=== PATIENT | female | born 1950 | race Caucasian/White ===

== ENCOUNTER → 2019-03-05 | Day surgery (SDC) | payer BC ==
--- NOTE | 2019-03-05 12:19 | RAD REPORT ---
EXAM DESCRIPTION: US - Guided FNA Non Breast - 03/05/2019 10:25 am CLINICAL HISTORY: E04.1 COMPARISON: Thyroid Para Parotid Gland dated 02/22/2019 TECHNIQUE: Patient presents for ultrasound-guided fine-needle aspiration of a previously detailed le ft mixed solid and cystic thyroid nodule. The procedure, risks and alternatives were discussed with the patient in detail. After answering all questions both oral and written consent were obtained. Patient had no contraindicated allergy. Patibonifacio beth is on 81 milligram aspirin therapy. Preliminary imaging again identified a 2 centimeter cystic left thyroid nodule with approximately 12- 14 millimeter solid component. The left anterior neck was prepped and draped in the usual sterile fashion. Skin and deeper tissues d own to the nodule were anesthetized with 1% lidocaine. Under direct sonographic visualization a 25 ga uge needle was advanced into the nodule solid component. Multiple to and fro excursions of the needle tip remained within the solid component. Procedure was then repeated with 4 additional 25 gauge need les all passing through the solid component. All aspirated material was given to pathology for cytolo gy assessment. Under direct sonographic visualization a 25 gauge needle was advanced into the nodule and directed to the cystic component. Aspiration was performed to remove some component of the fluid. The obtained fluid was retained for cytology and given to coroner transport technician. At the end of the procedure sterile bandage was placed to the puncture site. Post FNA imaging showed hemorrhage within the substance of the nodule. This was monitored over several minutes with no enlarg ement of the nodule. Patient was in no pain or discomfort at the conclusion of the procedure. IMPRESSION: Ultrasound-guided fine-needle aspiration was performed of the mixed solid and cystic lef t thyroid nodule as detailed. All obtained material was given to pathology for cytology/ histology assessment.
== END ==
LOC: FNA 09:36
PROVIDERS: ATTEND Internal Medicine
PROC: 0G9G3ZX Drainage of Left Thyroid Gland Lobe, Percutaneous Approach, Diagnostic (ICD-10-PCS; principal; 2019-03-05)
PROC: BG44ZZZ Ultrasonography of Thyroid Gland (ICD-10-PCS; 2019-03-05)
DX: E04.1 Nontoxic single thyroid nodule (principal)
CPT/HCPCS: 88162

== ENCOUNTER 2021-08-05 10:16 | Inpatient (IN) | payer BC, OTHER ==
[2021-08-05 10:51] LABS: Absolute Lymphocytes (CBC) 0.5 K/uL (0.7-4.9); Hematocrit 39.9 % (36.0-45.0); Lymphocytes % 7.5 % (15.3-44.8); MCV 90.3 fL (80-100); MPV 7.2 fL (7.6-11.3); RBC Red Blood Cell Count 4.42 M/uL (3.86-4.86)
[2021-08-05 10:55] LABS: Protime INR 0.94
[2021-08-05 11:09] LABS: Albumin 2.8 g/dL (3.4-5.0); Bilirubin Total 0.3 mg/dL (0.2-1.0); Protein, Total 6.3 g/dL (6.4-8.2)
--- NOTE | 2021-08-05 11:17 | RAD REPORT ---
EXAM DESCRIPTION: RAD - Chest Single View - 08/05/2021 10:57 am CLINICAL HISTORY: COUGH Chest pain. COMPARISON: No comparisons FINDINGS: Portable technique limits examination quality. Mild interstitial opacities bilaterally may indicate mild interstitial pulmonary edema. The heart is mildly enlarged in size. No displaced fractures. IMPRESSION: Mild CHF.
[2021-08-05 11:42] LABS: Troponin High Sensitivity 95.3 pg/mL (<58.9)
--- NOTE | 2021-08-05 12:20 | RAD REPORT ---
EXAM DESCRIPTION: US - Extremity Venous Uni Ltd - 08/05/2021 12:15 pm CLINICAL HISTORY: SWELLING Leg swelling and edema. COMPARISON: Upper Lower Extrem Art Multi dated 02/08/2018 FINDINGS: Left lower extremity venous system was interrogated with Doppler technique. Normal flow, c ompressibility and augmentation was noted. There is no DVT present.2 cm popliteal cyst. IMPRESSION: No evidence of left lower extremity deep venous thrombosis.
--- NOTE | 2021-08-05 12:45 | ER ---
Nurse's Notes [facility] Name: Tika Lynne Age: 70 yrs Sex: Female : 1950 Arrival Date: 08/05/2021 Time: 10:32 Bed 2 Private MD: Diagnosis: congestive heart failure;Cellulitis of left lower limb;Acute pulmonary edema Presentation: 08/05 10:30 Chief complaint: EMS states: Toned out for SOB, pt wears home O2, 1 lpm via NC, was 94% jl7 on arrival. 10:30 Coronavirus screen: At this time, the client does not indicate any symptoms associated jl7 with coronavirus-19. Ebola Screen: No symptoms or risks identified at this time. Initial Sepsis Screen: Does the patient meet any 2 criteria? RR > 20 per min. HR > 90 bpm. Yes Does the patient have a suspected source of infection? Yes: Productive cough/pneumonia If YES to both, name of provider notified: Kevin Lawson DO Risk Assessment: Do you want to hurt yourself or someone else? Patient reports no desire to harm self or others. Onset of symptoms was August 04, 2021. Care prior to arrival: Oxygen administered. via nasal cannula. 10:30 Method Of Arrival: EMS: [facility] [place], [place] [facility] jl7 10:30 Acuity: KEVIN 2 jl7 Triage Assessment: 10:30 General: Appears distressed, uncomfortable, Behavior is cooperative, appropriate for jl7 age, anxious. Pain: Complains of pain in right leg and left leg. Neuro: Level of Consciousness is awake, alert, obeys commands, Oriented to person, place, time, situation. Cardiovascular: Patient's skin is warm and dry. Rhythm is sinus tachycardia. Respiratory: Airway is patent Respiratory effort is even, labored, Respiratory pattern is symmetrical, tachypnea. GI: Abdomen is round distended. Derm: Skin is pink, warm \T\ dry. Historical: - Allergies: 10:45 Neomycin Sulfate; jl7 10:45 BACITRACIN; jl7 10:45 Levofloxacin; jl7 - Home Meds: 10:45 furosemide 40 mg Oral tab [Active]; prednisone 20 mg Oral tab [Active]; Trelegy Ellipta jl7 inhalation [Active]; Albuterol Inhl [Active]; carvedilol 6.25 mg oral tab [Active]; clonazepam 2 mg Oral tab [Active]; - PMHx: 10:45 Hypertensive disorder; Chronic obstructive lung disease; Congestive heart failure; jl7 - Immunization history:: Adult Immunizations unknown. - Social history:: Smoking status: unknown. Screenin:30 Abuse screen: Denies threats or abuse. Denies injuries from another. Nutritional jl7 screening: No deficits noted. Tuberculosis screening: No symptoms or risk factors identified. Fall Risk IV access (20 points). Assessment: 10:30 Reassessment: RT at bedside, pt placed on BiPap. jl7 Vital Signs: 10:30 BP 116 / 70; Pulse 129; Resp 25 S; Temp 100.2(O); Pulse Ox 91% on R/A; jl7 10:52 BP 103 / 62; Pulse 122; Resp 26; Pulse Ox 96% on 30% BiPAP; jl7 11:35 BP 121 / 69; Pulse 125; Resp 32; Pulse Ox 93% ; jl7 11:37 Weight 65 kg (M); jl7 12:56 BP 104 / 52; Pulse 108; Resp 28; Temp 98.4; Pulse Ox 97% ; jl7 14:20 BP 99 / 63; Pulse 118; Resp 25; Pulse Ox 97% ; jl7 15:20 BP 101 / 56; Pulse 115; Resp 28; Pulse Ox 96% on 30% BiPAP; jl7 ED Course: 10:30 Arm band placed on right wrist. jl7 10:30 Patient has correct armband on for positive identification. Placed in gown. Bed in low jl7 position. Call light in reach. Side rails up X2. Client placed on continuous cardiac and pulse oximetry monitoring. NIBP monitoring applied. Warm blanket given. 10:32 Patient arrived in ED. ms3 10:32 Kevin Lawson DO is Attending Physician. ms3 10:45 Triage completed. jl7 10:53 Goyo Cox RN is Primary Nurse. jl7 10:59 CXR XRAY In Process Unspecified. EDMS 12:17 US Extremity Venous Unilateral Ltd In Process Unspecified. EDMS 12:43 Santa Horne MD is Hospitalizing Provider. ms3 13:00 Initial lab(s) drawn, by me, sent to lab. EKG done, by ED staff, reviewed by Kevin Lawson DO COVID swab sent to lab. Inserted saline lock: 20 gauge in left antecubital area, using aseptic technique. Blood collected. 16:00 No provider procedures requiring assistance completed. Patient admitted, IV remains in jl7 place. intact, No redness/swelling at site. Administered Medications: 12:53 Drug: morphine 2 mg Route: IVP; Infused Over: 4 mins; Site: left antecubital; jl7 13:15 Follow up: Response: No adverse reaction; Pain is decreased jl7 12:56 Drug: vancoMYCIN 1 grams Route: IVPB; Infused Over: 2 hrs; Site: left antecubital; jl7 Medication: 10:30 VIS not applicable for this client. 7 Outcome: 12:44 Decision to Hospitalize by Provider. ms3 16:02 Admitted to Med/surg accompanied by tech, family with patient, via stretcher, room 202, [facility] with chart, Report called to JULIOCESAR Rhodes 16:02 Condition: stable 16:02 Discharge instructions given to patient, family, Instructed on the need for admit, Demonstrated understanding of instructions. 16:04 Patient left the ED. jl Signatures: Dispatcher [employer] Goyo Murrell RN RN jl7 Kevin Lawson DO DO ms3
--- NOTE | 2021-08-05 12:45 | EDPHYS ---
Physician Documentation [facility] Name: Tika Lynne Age: 70 yrs Sex: Female : 1950 Arrival Date: 08/05/2021 Time: 10:32 Bed 2 Private MD: ED Physician Kevin Lawson HPI: 08/05 10:37 This 70 yrs old Female presents to ER via Unassigned with complaints of shortness of ms3 breath. 10:37 The patient has shortness of breath at rest. Onset: The symptoms/episode began/occurred ms3 acutely, this morning. Duration: The symptoms are continuous, and are unchanged since they started. The patient's shortness of breath is aggravated by nothing, is alleviated by elevating head. Associated signs and symptoms: The patient has no apparent associated signs or symptoms. Severity of symptoms: At their worst the symptoms were severe in the emergency department the symptoms are unchanged. Patient on home oxygen at 2L. Last lasix dose 9 pm. Historical: - Allergies: 10:45 Neomycin Sulfate; jl7 10:45 BACITRACIN; jl7 10:45 Levofloxacin; jl7 - Home Meds: 10:45 furosemide 40 mg Oral tab [Active]; prednisone 20 mg Oral tab [Active]; Trelegy Ellipta jl7 inhalation [Active]; Albuterol Inhl [Active]; carvedilol 6.25 mg oral tab [Active]; clonazepam 2 mg Oral tab [Active]; - PMHx: 10:45 Hypertensive disorder; Chronic obstructive lung disease; Congestive heart failure; jl7 - Immunization history:: Adult Immunizations unknown. - Social history:: Smoking status: unknown. ROS: 10:37 Constitutional: Negative for fever, and chills. Eyes: Negative for injury, pain, ms3 redness, and discharge, Neck: Negative for injury, pain, and swelling, Cardiovascular: Negative for chest pain, and palpitations. Respiratory: Negative for shortness of breath, cough, wheezing, and pleuritic chest pain, Abdomen/GI: Negative for abdominal pain, nausea, vomiting, diarrhea, and constipation, MS/Extremity: Negative for injury and deformity, Skin: Negative for injury, rash, and discoloration, Psych: Negative for depression, anxiety, suicide ideation, homicidal ideation, and hallucinations. 10:37 All other systems are negative. Exam: 10:20 ECG was reviewed by the Attending Physician. ms3 10:37 Constitutional: This is a well developed, well nourished patient who is awake, alert, ms3 and in no acute distress. Head/Face: Normocephalic, atraumatic. Eyes: Pupils equal round and reactive to light, extra-ocular motions intact. Lids and lashes normal. Conjunctiva and sclera are non-icteric and not injected. Periorbital areas with no swelling, redness, or edema. Neck: Trachea midline, no cervical lymphadenopathy. Supple, full range of motion without nuchal rigidity, or vertebral point tenderness. No Meningismus. Chest/axilla: Normal chest wall appearance and motion. Nontender with no deformity. Cardiovascular: Regular rate and rhythm with a normal S1 and S2. No gallops, murmurs, or rubs. Normal PMI, no JVD. No pulse deficits. Respiratory: Lungs have equal breath sounds bilaterally, clear to auscultation and percussion. No rales, rhonchi or wheezes noted. No increased work of breathing, no retractions or nasal flaring. Abdomen/GI: Soft, non-tender, with normal bowel sounds. No distension or tympany. No guarding or rebound. No evidence of tenderness throughout. Skin: Warm, dry with normal turgor. Normal color with no rashes, no lesions, and no evidence of cellulitis. Psych: Awake, alert, with orientation to person, place and time. Behavior, mood, and affect are within normal limits. Vital Signs: 10:30 BP 116 / 70; Pulse 129; Resp 25 S; Temp 100.2(O); Pulse Ox 91% on R/A; jl7 10:52 BP 103 / 62; Pulse 122; Resp 26; Pulse Ox 96% on 30% BiPAP; jl7 11:35 BP 121 / 69; Pulse 125; Resp 32; Pulse Ox 93% ; jl7 11:37 Weight 65 kg (M); jl7 12:56 BP 104 / 52; Pulse 108; Resp 28; Temp 98.4; Pulse Ox 97% ; jl7 14:20 BP 99 / 63; Pulse 118; Resp 25; Pulse Ox 97% ; jl7 15:20 BP 101 / 56; Pulse 115; Resp 28; Pulse Ox 96% on 30% BiPAP; jl7 MDM: 10:20 Data reviewed:. ms3 10:32 Patient medically screened. ms3 08/05 10:33 Order name: COVID-19 SARS RT PCR (Document "Date of Onset" if Symptomatic); Complete kj1 Time: 12:16 08/05 10:33 Order name: Blood Culture Adult (2) kj1 08/05 10:33 Order name: CBC with Diff; Complete Time: 11:32 kj1 08/05 10:33 Order name: CMP; Complete Time: 11:32 kj1 08/05 10:33 Order name: Lactate; Complete Time: 11:32 kj1 08/05 10:33 Order name: Protime (+inr); Complete Time: 11:32 kj1 08/05 10:33 Order name: Ptt, Activated; Complete Time: 11:32 kj1 08/05 10:35 Order name: Troponin High Sensitivity; Complete Time: 12:16 ms3 08/05 10:35 Order name: BNP; Complete Time: 12:16 ok3 08/05 14:09 Order name: CBC with Automated Diff EDMS 08/05 14:09 Order name: CBC with Automated Diff EDMS 08/05 14:09 Order name: Comprehensive Metabolic Panel EDMS 08/05 14:09 Order name: Comprehensive Metabolic Panel EDMS 08/05 14:09 Order name: Lipid Profile EDFL 08/05 10:33 Order name: Accucheck; Complete Time: 10:52 kj1 08/05 10:33 Order name: Cardiac monitoring; Complete Time: 10:52 kj1 08/05 10:33 Order name: EKG - Nurse/Tech; Complete Time: 10:52 kj1 08/05 10:35 Order name: CXR XRAY; Complete Time: 11:32 ms3 08/05 11:37 Order name: US Extremity Venous Unilateral Ltd; Complete Time: 12:21 7 08/05 14:09 Order name: CONS Physician Consult EDMS 08/05 14:09 Order name: Heart Healthy EDMS 08/05 14:09 Order name: Lipid Profile EDMS 08/05 14:09 Order name: Magnesium EDMS 08/05 14:09 Order name: Magnesium EDMS 08/05 14:09 Order name: NT PRO-BNP EDMS 08/05 14:09 Order name: NT PRO-BNP EDMS 06/16 14:09 Order name: Phosphorus EDMS 08/05 14:09 Order name: Phosphorus EDMS 08/05 10:33 Order name: IV Saline Lock - Large Bore; Complete Time: 08/05 10:33 Order name: Labs collected and sent; Complete Time: 08/05 10:33 Order name: O2 Per Protocol; Complete Time: 08/05 10:33 Order name: O2 Sat Monitoring; Complete Time: EC:20 Rate is 128 beats/min. Rhythm is regular. QRS [place] is Normal. Clinical impression: ms3 Sinus tachycardia. Interpreted by me. Administered Medications: 12:53 Drug: morphine 2 mg Route: IVP; Infused Over: 4 mins; Site: left antecubital; jl7 13:15 Follow up: Response: No adverse reaction; Pain is decreased jl7 12:56 Drug: vancoMYCIN 1 grams Route: IVPB; Infused Over: 2 hrs; Site: left antecubital; jl7 Disposition Summary: 08/05/21 12:44 Hospitalization Ordered Hospitalization Status: Inpatient Admission ms3 Provider: Santa Horne ms3 Location: Telemetry/MedSurg (Inpatient) ms3 Condition: Stable ms3 Problem: new ms3 Symptoms: are unchanged ms3 Bed/Room Type: Standard ms3 Room Assignment: 202(08/05/21 15:02) dw Diagnosis - congestive heart failure ms3 - Cellulitis of left lower limb ms3 - Acute pulmonary edema ms3 Forms: - Medication Reconciliation Form ms3 - SBAR form ms3 Signatures: Dispatcher [employer] Stephany Edwards RN RN dw Goyo Cox RN RN jl7 Aby Hamilton kj1 Kevin Lawson DO DO ms3 Corrections: (The following items were deleted from the chart) 14:59 12:44 ms3 dw 15:02 14:59 213 dw dw
[2021-08-05] MEDS ORDERED: NA CHLORIDE 0.9% 0 ML ONE (12:48)
[2021-08-05] MEDS ORDERED: MORPHINE 2 MG/ML SYR ONE (12:48)
[2021-08-05] MEDS ORDERED: VANCOMYCIN 1 GM/VIAL ONE (12:48)
[2021-08-05] MEDS ORDERED: NA CHLORIDE 0.9% 250 ML ONE ×2 (12:51→17:28)
[2021-08-05] MEDS ORDERED: ALBUTEROL 2.5 MG/3 ML NEB SOL NEB PRN (14:04)
[2021-08-05] MEDS ORDERED: ENOXAPARIN 40 MG/0.4 ML SQ SCH (15:00)
[2021-08-05] MEDS ORDERED: ALBUTEROL 2.5 MG/3 ML NEB SOL NEB ONE (18:00)
[2021-08-05] MEDS ORDERED: NA CHLORIDE 0.9% 250 ML IV ONE (18:00)
[2021-08-05] MEDS ORDERED: IPRATROPIUM BROM 0.5MG/2.5ML NEB ONE (18:00)
[2021-08-05 18:18] LABS: Arterial Blood Carboxyhemoglob 0.9 % (0-1.5); Blood Gas Oxyhemoglobin 94.5 % (94-97); Blood O2 Saturation 96.8 % (92-98.5)
[2021-08-05] MEDS: METHYLPREDNISOLONE 125 MG INJ IV SCH (18:22)
[2021-08-05] MEDS: PIPER TAZO 3.375 GM in NA CHLORIDE 0.9% 100 ML IV SCH (18:23)
[2021-08-05] MEDS: NA CHLORIDE 0.9% 1,000 ML IV SCH (18:23)
[2021-08-05] MEDS ORDERED: FENTANYL CITR 100 MCG/2 ML IV PRN (18:48)
[2021-08-05] MEDS ORDERED: DIGOXIN 0.25 MG/ML AMP IV ONE (19:00)
[2021-08-05] MEDS: FENTANYL CITR 100 MCG/2 ML IV PRN (19:17)
[2021-08-05] MEDS ORDERED: DIGOXIN 0.25 MG/ML AMP ONE (19:19)
[2021-08-05] MEDS: ARFORMOTEROL TARTRATE 15 MCG/2 ML VIAL.NEB NEB SCH (20:05)
--- NOTE | 2021-08-05 23:31 | P.HP ---
Certification for Inpatient Patient admitted to: Inpatient With expected LOS: >2 Midnights Patient will require the following post-hospital care: None Practitioner: I am a practitioner with admitting privileges, knowledge of patient current condition, hospital course, and medical plan of care. Services: Services provided to patient in accordance with Admission requirements found in Title 42 Section 412.3 of the Code of Federal Regulations Patient History Date of Service: 08/05/21 Reason for admission: Cellulitis; acute COPD exacerbation History of Present Illness: Patient is a 70-year-old female came to the hospital with pain and shortness of breath. She has been having pain in the left leg which has gotten worse over the last 48 hours. Her clinical symptoms continued to worsen so she came to the emergency room. In the emergency room she was started on IV antibiotic therapy. She was also having severe shortness of breath. She was tachypneic but this may have been related to her pain. She appeared to be septic. She was placed on a BiPAP. She was oxygenating fairly well. She is also in atrial fibrillation with rapid ventricular response. I started her on digoxin. She takes carvedilol at home. Questionable history of congestive heart failure. Echocardiogram pending. As she appears to be septic I will err on the side of giving her some IV fluids to stabilize her hemodynamics. On the floor she was hypotensive with a systolic blood pressure in the 80s. Will monitor her closely in the ICU. Allergies bacitracin [From Neosporin ([id number])] Allergy (Verified 01/29/18 15:33) Rash levofloxacin [From Levaquin] Allergy (Verified 01/29/18 15:33) Itching neomycin [From Neosporin ([id number])] Allergy (Verified 01/29/18 15:33) Rash polymyxin B [From Neosporin ([id number])] Allergy (Verified 01/29/18 15:33) Rash Home Medications: Atorvastatin Calcium [Lipitor] 40 mg PO BEDTIME 01/29/18 Fluticasone/Umeclidin/Vilanter [Trelegy Ellipta 100-62.5-25] 1 each IH AC 01/29/18 carvediloL [Coreg] 6.25 mg PO BID 01/29/18 Albuterol Neb [Proventil 0.083% Neb Soln] 1 appl IH Q6H PRN 06/16/22 Cefdinir [Cefdinir*] 300 mg PO BID 08/05/21 Potassium Chloride 20 meq PO DAILY 08/05/21 clonazePAM [Clonazepam] 2 mg PO BEDTIME 08/05/21 predniSONE [Deltasone] 20 mg PO DAILY 08/05/21 - Past Medical/Surgical History Has patient received pneumonia vaccine in the past: Yes Diabetic: No -: COPD -: HTN -: AFib -: Right hip fracture - Family History Father Family History: Reviewed- Non-Contributory - Social History Smoking Status: Former smoker Alcohol use: No CD- Drugs: No Caffeine use: No Place of Residence: Home Review of Systems 10-point ROS is otherwise unremarkable Physical Examination - Vital Signs Temperature: 98.2 F Blood Pressure: 119/58 Pulse: 116 Respirations: 30 Pulse Ox (%): 98 - Physical Exam General: Alert, In no apparent distress, Severe distress HEENT: Atraumatic, PERRLA, Mucous membr. moist/pink, EOMI, Sclerae nonicteric Neck: Supple, 2+ carotid pulse no bruit, No LAD, Without JVD or thyroid abno rmality Respiratory: Diminished, Expiratory wheezes Cardiovascular: Regular rate/rhythm, Normal S1 S2, Systolic murmur Gastrointestinal: Normal bowel sounds, Soft and benign, Non-distended, No tenderness Musculoskeletal: No tenderness, Erythema, Tenderness, Warmth Integumentary: Tenderness/swelling, Erythema, Warmth Neurological: Normal speech, Normal tone, Cranial nerves 3-12 intact, Normal affect, Abnormal strength Lymphatics: No axilla or inguinal lymphadenopathy - Studies Laboratory Data (last 24 hrs) 08/05/21 10:40: PT 10.3, INR 0.94, APTT 21.6 L 08/05/21 10:40: Sodium 138, Potassium 4.0, BUN 32 H, Creatinine 0.82, Glucose 79, Total Bilirubin 0.3, AST 20, ALT 36, Alkaline Phosphatase 37 L 08/05/21 10:40: WBC 6.1, Hgb 13.7, Hct 39.9, Plt Count 284 Assessment & Plan - Problems (Diagnosis) (1) Cellulitis Current Visit: Yes Status: Acute (2) Sepsis associated hypotension Current Visit: Yes Status: Acute (3) COPD (chronic obstructive pulmonary disease) Current Visit: No Status: Acute (4) Atrial fibrillation with rapid ventricular response Current Visit: Yes Status: Acute - Plan 1. Continue with IV antibiotic 2. Continue with local wound care 3. strict blood pressure and blood sugar control 4. Gentle IV hydration 5. Monitor CBC 6. Strict blood sugar monitoring 7. Pain control 8. Cardiology consultation 9. Infectious Disease consultation 10. Pulmonary consultation 11. echocardiogram 12. medication for rate control & anticoagulation 13. GI and DVT prophylaxis Discharge Plan: Home Plan to discharge in: Greater than 2 days - Advance Directives Does patient have a Living Will: No Does patient have a Durable POA for Healthcare: No - Code Status/Comfort Care Code Status Assessed: Yes Code Status: Full Code Critical Care: Yes Time Spent Managing PTS Care (In Minutes): 55
[2021-08-06] MEDS: METHYLPREDNISOLONE 125 MG INJ IV SCH ×2 (00:15→05:48)
[2021-08-06] MEDS: DIGOXIN 0.25 MG/ML AMP IV SCH ×2 (00:19→05:48)
[2021-08-06] MEDS: PIPER TAZO 3.375 GM in NA CHLORIDE 0.9% 100 ML IV SCH ×3 (00:21→16:06)
[2021-08-06] MEDS: FENTANYL CITR 100 MCG/2 ML IV PRN ×4 (04:30→21:12)
[2021-08-06 04:50] LABS: Absolute Lymphocytes (CBC) 0.3 K/uL (0.7-4.9); Hematocrit 36.5 % (36.0-45.0); Lymphocytes % 1.7 % (15.3-44.8); MCV 92.8 fL (80-100); MPV 7.2 fL (7.6-11.3); RBC Red Blood Cell Count 3.93 M/uL (3.86-4.86)
[2021-08-06 05:13] LABS: Albumin 2.3 g/dL (3.4-5.0); Bilirubin Total 0.4 mg/dL (0.2-1.0); Magnesium 2.1 mg/dL (1.8-2.4); Phosphorus 5.5 mg/dL (2.5-4.9); Potassium 4.6 mmol/L (3.5-5.1)
[2021-08-06] MEDS: ARFORMOTEROL TARTRATE 15 MCG/2 ML VIAL.NEB NEB SCH ×2 (08:12→20:20)
--- NOTE | 2021-08-06 08:41 | P.CNS ---
Date of Consult: 08/06/21 Reason for Consult: Septic shock COPD Chief Complaint: Cellulitis; acute COPD exacerbation History of Present Illness: Patient is 70 years of age admitted with pain shortness of breath she has cellulitis of the left leg was found to be in septic shock has a history of COPD is taking her bronchodilators and steroids also has A. fib currently doing better vital signs are more stable cultures positive for gram-negative rods Allergies bacitracin [From Neosporin ([id number])] Allergy (Verified 01/29/18 15:33) Rash levofloxacin [From Levaquin] Allergy (Verified 01/29/18 15:33) Itching neomycin [From Neosporin ([id number]-hzu-[id number])] Allergy (Verified 01/29/18 15:33) Rash polymyxin B [From Neosporin ([id number])] Allergy (Verified 01/29/18 15:33) Rash Home Medications: Atorvastatin Calcium [Lipitor] 40 mg PO BEDTIME 01/29/18 Fluticasone/Umeclidin/Vilanter [Trelegy Ellipta 100-62.5-25] 1 each IH AC 01/29/18 carvediloL [Coreg] 6.25 mg PO BID 01/29/18 Albuterol Neb [Proventil 0.083% Neb Soln] 1 appl IH Q6H PRN 08/05/21 Cefdinir [Cefdinir*] 300 mg PO BID 08/05/21 Potassium Chloride 20 meq PO DAILY 08/05/21 clonazePAM [Clonazepam] 2 mg PO BEDTIME 08/05/21 predniSONE [Deltasone] 20 mg PO DAILY 08/05/21 - Past Medical/Surgical History Diabetic: No -: COPD -: HTN -: AFib -: Right hip fracture - Family History Father Family History: Reviewed- Non-Contributory - Social History Smoking Status: Unknown if ever smoked Alcohol use: No CD- Drugs: No Caffeine use: No Place of Residence: Home Review of Systems General: Weakness Respiratory: Shortness of Breath Musculoskeletal: Leg Pain Physical Examination Temp Pulse Resp BP Pulse Ox 97.1 F 93 H 20 115/60 93 08/06/21 04:00 08/06/21 06:00 08/06/21 06:00 08/06/21 06:00 08/06/21 06:00 General: Alert, Oriented x3, Moderate distress Respiratory: Clear to auscultation bilaterally, Diminished Cardiovascular: No edema, Regular rate/rhythm, Normal S1 S2 Gastrointestinal: Normal bowel sounds, Soft and benign Integumentary: Other (Cellulitis of her left leg her right leg is also has some discoloration) Laboratory Data (last 24 hrs) 08/05/21 10:40: PT 10.3, INR 0.94, APTT 21.6 L 08/05/21 10:40: Sodium 138, Potassium 4.0, BUN 32 H, Creatinine 0.82, Glucose 79, Total Bilirubin 0.3, AST 20, ALT 36, Alkaline Phosphatase 37 L 08/05/21 10:40: WBC 6.1, Hgb 13.7, Hct 39.9, Plt Count 284 - Problems (1) Septic shock Current Visit: Yes Status: Acute Plan: Patient is 70 years of age admitted with septic shock blood cultures positive for gram-negative rods vital signs are stable chest x-ray shows some COPD changes continue with Zosyn DC vancomycin changed to p.o. prednisone continue with bronchodilators patient is in A. fib rate appears to be controlled normal sinus rhythm patient stable to be transferred to the floor (2) COPD (chronic obstructive pulmonary disease) Current Visit: No Status: Acute Plan: Apparently patient has severe COPD takes Trelegy and prednisone at home close up with the regional commercial sales manager in [place] at discharge patient to resume her Trelegy and low-dose prednisone follow-up with me in 2 to 4 weeks high-sensitivity troponins elevated Qualifiers: Emphysema type: unspecified
[2021-08-06] MEDS: ENOXAPARIN 80 MG/0.8 ML SQ SCH ×4 (08:49→21:22)
[2021-08-06] MEDS: predniSONE 20 MG TAB PO SCH ×2 (08:50→21:09)
[2021-08-06] MEDS ORDERED: carvediloL 6.25 MG TAB PO SCH (09:00)
[2021-08-06] MEDS: carvediloL 12.5 MG TAB PO SCH ×2 (09:18→21:08)
[2021-08-06] MEDS: NA CHLORIDE 0.9% 1,000 ML IV SCH (11:00)
--- NOTE | 2021-08-06 12:58 | P.CNS ---
Date of Consult: 08/06/21 Chief Complaint: Cellulitis; acute COPD exacerbation History of Present Illness: The patient is a 70-year-old female with a past medical history of COPD and possible congestive heart failure who presented to the hospital secondary to pain and shortness of breath. Patient has been having pain in her left leg for the past few days. She initially noticed lower extremity swelling, and then stated that the pain began a few days later. She states that her dog jumped up on her and scratched her leg. She also had shortness of breath, with elevated BNP on admission. Chest x-ray showed mild interstitial opacities bilaterally concerning for infiltrates versus pulmonary edema. Echocardiogram is pending. Blood cultures obtained on 08/05 grew gram-negative rods. No urine culture/urine analysis was obtained, 1 has been ordered however patient has been on antibiotics for for [address] hours [address] time[address] abdomen pelvis also pending. Patient currently states she is feeling much better. Denies shortness of breath on current oxygen, chest pain. She reports tenderness to left lower extremity, however states the tenderness has subsided since admission. Allergies bacitracin [From Neosporin ([id number])] Allergy (Verified 01/29/18 15:33) Rash levofloxacin [From Levaquin] Allergy (Verified 01/29/18 15:33) Itching neomycin [From Neosporin ([id number])] Allergy (Verified 01/29/18 15:33) Rash polymyxin B [From Neosporin ([id number])] Allergy (Verified 01/29/18 15:33) Rash Home Medications: Atorvastatin Calcium [Lipitor] 40 mg PO BEDTIME 01/29/18 Fluticasone/Umeclidin/Vilanter [Trelegy Ellipta 100-62.5-25] 1 each IH AC 01/29/18 carvediloL [Coreg] 6.25 mg PO BID 01/29/18 Albuterol Neb [Proventil 0.083% Neb Soln] 1 appl IH Q6H PRN 08/05/21 Cefdinir [Cefdinir*] 300 mg PO BID 08/05/21 Potassium Chloride 20 meq PO DAILY 08/05/21 clonazePAM [Clonazepam] 2 mg PO BEDTIME 08/05/21 predniSONE [Deltasone] 20 mg PO DAILY 08/05/21 - Past Medical/Surgical History Diabetic: No -: COPD -: HTN -: AFib -: Right hip fracture - Family History Father Family History: Reviewed- Non-Contributory - Social History Smoking Status: Unknown if ever smoked Alcohol use: No CD- Drugs: No Caffeine use: No Place of Residence: Home Review of Systems 10-point ROS is otherwise unremarkable Physical Examination Temp Pulse Resp BP Pulse Ox 96.9 F 110 H 20 122/65 93 08/06/21 08:00 08/06/21 11:00 08/06/21 11:00 08/06/21 11:00 08/06/21 11:00 General: Alert, In no apparent distress HEENT: Atraumatic, Normocephalic Neck: 2+ carotid pulse no bruit Respiratory: Other (Bilateral crackles/rales) Cardiovascular: Regular rate/rhythm, Normal S1 S2 Capillary refill: <2 Seconds Gastrointestinal: Normal bowel sounds, Soft and benign Integumentary: Other (Left lower extremity cellulitis with swelling) Conclusions/Impression: Antibiotics Zosyn: 08/05current Assessment/plan Bacteremia Blood cultures obtained on 08/05 grew gram-negative rods in both aerobic bottles. Recommend continuing Zosyn at this time. No urine culture/urine analysis was obtained on admission, they have been ordered today however patient has been on antibiotics for 24 hours already. Source of infection remains unclear Left lower extremity cellulitis Continue to keep leg elevated Continue current antibiotics Patient does have wound on her upper inner thigh however it is scabbed over and is healing. This wound is from when her dog jumped up and scratched on her. Possible source of the cellulitis infection could be Pasteurella species, is covered with Zosyn. Venous Doppler negative for DVT Pneumonia Patient tachypneic and short of breath on admission. Has improved in the past 24 hours. Currently on 1 L of oxygen via nasal cannula Chest x-ray showed mild interstitial opacities bilaterally concerning for infiltrates versus pulmonary edema. Patient does have history of COPD, recommend continuing nebulizer treatments and restarting home trilogy Possible congestive heart failure Patient had bilateral lower extremity swelling on admission, and elevated BNP. Echocardiogram is pending. Leukocytosis -Continue to trend, patient afebrile Plan of care discussed Dr. Richardson Thank for consultation
[2021-08-06] MEDS ORDERED: VANCOMYCIN 1 GM in NA CHLORIDE 0.9% 250 ML IVPB SCH (13:00)
--- NOTE | 2021-08-06 14:28 | RAD REPORT ---
EXAM DESCRIPTION: CTAbdomen W Contrast - 08/06/2021 1:51 pm CLINICAL HISTORY: GNR bateremia COMPARISON: No comparisons TECHNIQUE: CT of the abdomen was performed. All CT scans are performed using dose optimization technique as appropriate and may include automated exposure control or mA/KV adjustment according to patient size. FINDINGS: Lower chest: Small right pleural effusion with mild underlying consolidation. 12 mm solid right lower lobe pulmonary nodule. Multi-vessel coronary artery disease. Liver: Hepatic steatosis. Biliary: Indistinctness of the gallbladder wall. Stomach: No significant focal abnormality. Duodenum: No significant focal abnormality. Pancreas: No significant abnormality. Spleen: Trace perisplenic fluid. Adrenal: No suspicious lesions. Kidney/ureter: No hydronephrosis. Punctate stone in the lower pole of the left kidney. Mild left moncho nephric stranding. Retroperitoneum: No retroperitoneal adenopathy. Vascular: No aneurysm. Atherosclerosis. Bowel: No significant focal abnormality. Peritoneum: Small volume of periapical stomach fluid. Bones: No acute fracture. Kyphoplasty changes in the lower thoracic and lumbar spine. Probably subacu te L1 compression fracture. No acute fractures identified. Other: n/a IMPRESSION: 1. Mild stranding around the gallbladder could represent acute cholecystitis. Correlate with LFTs. 2. Small right pleural effusion with either mild pneumonia or pneumonitis. 3. 12 mm solid right lower lobe pulmonary nodule which is indeterminate. Neoplasm not excluded. Jarvis rison with any outside imaging would be helpful. If none is available, recommend three-month follow-u p chest CT.
--- NOTE | 2021-08-06 16:00 | CON ---
Date of Consultation: 08/06/2021 Reason For Consultation: Elevated troponin as well as atrial fibrillation, History If Present Illness: Ms. Lynne is 70, has a history of COPD and hypertension. Denied any pr evious cardiac history. Came in with pneumonia, sepsis, dyspnea on exertion. She was found to have new onset atrial fibrillation. She received 1 dose of digoxin and some beta-mickie along with the a ntibiotics, steroids, and Lovenox. She converted to sinus rhythm. She remains short of breath. Den ied any chest pain. Denied any nausea, vomiting, diaphoresis, PND, orthopnea, pedal edema, palpitati on, or syncope. Has had some cough, but denies any fever or chills. She denied any chest pain. Past Medical History: Includes COPD and hypertension. Allergies: SHE IS ALLERGIC TO BACTRIM AND LEVAQUIN. Review of Systems: Negative. Social History: Negative. Family History: Noncontributory. Medications: At home include inhalers, carvedilol, potassium, and Lasix. Physical Examination: General: She is in moderate respiratory distress. Sinus tachycardia at a rate of 110, afebrile. HEENT: Negative. Neck: Supple. No bruit. Chest: Clear to auscultation and percussion. Cardiac: Revealed a regular rhythm and rate. No murmurs, gallops, or rubs. Abdomen: Benign. Extremities: Revealed no clubbing, cyanosis, or edema. Diagnostic Data: White count was 16,000. BNP is 2000. Chest x-ray shows CHF. Venous Doppler is ne gative. Troponin is 76. Impression And Plan: Atrial fibrillation and elevated troponin probably both secondary to pneumonia and sepsis and demand ischemia. I agree with digoxin, Lovenox. Continue her carvedilol. Continue a ntibiotics and steroid treatment for her COPD and pneumonia. Her blood pressure is well controlled. We need to do a 2D echocardiogram to see what with her ejection fraction is. This may be an atrial fibrillation episode secondary to the pneumonia and sepsis. Hopefully, we will not have to anticoagu late her down the road with long-term anticoagulation, but we will see what the echo shows. She was reluctant to increase her carvedilol dose. Apparently, she did not tolerate that in the past, so I w ill continue the Coreg 6.25 twice a day. I gave her 0.25 mg of digoxin daily p.o. Continue antibiot ics. Continue Lovenox and I will continue to follow her. AD/YOJANA Voice ID: [id number] Report ID: [id number]
[2021-08-06] MEDS: ATORVASTATIN 40 MG TAB PO SCH (21:09)
[2021-08-06] MEDS: clonazePAM 1 MG TAB PO SCH (22:44)
--- NOTE | 2021-08-07 00:58 | P.PN ---
Subjective Date of Service: 08/06/21 Subjective: No new changes, No C/O voiced, Improving Patient looks to be doing much better in the ICU. Clinical symptoms are much better. Review of Systems 10-point ROS is otherwise unremarkable Physical Examination - Vital Signs Temperature: 98.3 F Blood Pressure: 141/65 Pulse: 112 Respirations: 14 Pulse Ox (%): 93 - Physical Exam General: Alert, In no apparent distress, Oriented x3 HEENT: Atraumatic, PERRLA, EOMI Neck: Supple, JVD not distended Respiratory: Clear to auscultation bilaterally, Normal air movement Cardiovascular: Regular rate/rhythm, Normal S1 S2 Gastrointestinal: Normal bowel sounds, No tenderness Musculoskeletal: No tenderness Integumentary: No rashes Neurological: Normal speech, Normal tone, Normal affect Lymphatics: No axilla or inguinal lymphadenopathy - Studies Medications List Reviewed: Yes Assessment & Plan - Problems (Diagnosis) (1) Cellulitis Current Visit: Yes Status: Acute (2) Sepsis associated hypotension Current Visit: Yes Status: Acute (3) COPD (chronic obstructive pulmonary disease) Current Visit: No Status: Acute Qualifiers: Emphysema type: unspecified (4) Atrial fibrillation with rapid ventricular response Current Visit: Yes Status: Acute - Plan Continue with plan of care as mentioned below: 1. Continue with IV antibiotic 2. Continue with local wound care 3. strict blood pressure and blood sugar control 4. Gentle IV hydration 5. Monitor CBC 6. Strict blood sugar monitoring 7. Pain control 8. Cardiology consultation 9. Infectious Disease consultation 10. Pulmonary consultation 11. echocardiogram 12. medication for rate control & anticoagulation 13. GI and DVT prophylaxis Discharge Plan: Home Plan to discharge in: Greater than 2 days - Advance Directives Does patient have a Living Will: No Does patient have a Durable POA for Healthcare: No - Code Status/Comfort Care Code Status: Full Code Critical Care: No Time Spent Managing PTS Care (In Minutes): 35
[2021-08-07] MEDS: PIPER TAZO 3.375 GM in NA CHLORIDE 0.9% 100 ML IV SCH ×2 (01:36→08:43)
[2021-08-07] MEDS: FENTANYL CITR 100 MCG/2 ML IV PRN ×4 (01:54→22:07)
[2021-08-07] MEDS: carvediloL 12.5 MG TAB PO SCH ×3 (06:00→19:12)
[2021-08-07] MEDS: ARFORMOTEROL TARTRATE 15 MCG/2 ML VIAL.NEB NEB SCH ×2 (07:49→19:50)
[2021-08-07] MEDS: predniSONE 20 MG TAB PO SCH ×2 (08:42→20:12)
[2021-08-07] MEDS: ENOXAPARIN 80 MG/0.8 ML SQ SCH ×2 (08:42→20:12)
--- NOTE | 2021-08-07 09:00 | EKG ---
Test Date: 2021-08-05 Test Time: 10:20:24 Oracle Database Developer: MIGUEL MEASUREMENT RESULTS: Intervals: Rate: 128 MA: 126 QRSD: 66 QT: 252 QTc: 367 [place]: P: 54 MA: 126 QRS: 53 T: 201 INTERPRETIVE STATEMENTS: Sinus tachycardia with premature atrial complexes ST & T wave abnormality, consider inferolateral ischemia Abnormal ECG No previous ECG available for comparison Electronically Signed On 08-07-21 08:55:46 CDT by Sammy Valadez
--- NOTE | 2021-08-07 10:51 | PN ---
Date of Progress Note: 08/07/2021 Ms. Lynne had came in with sepsis, pneumonia, atrial fibrillation, elevated troponin. Today, she is in sinus rhythm. Echocardiogram showed decreased left ventricular compliance with a normal ejection fraction. She has received digoxin when she came in. She is on Coreg. I think her atrial fibrilla tion may have been secondary to the sepsis and pneumonia. Her elevated troponin is secondary to kaci nd ischemia. She does not need any further cardiac workup, but I think it would be reasonable to put her on an anticoagulant, Eliquis or Xarelto for the next 3 to 6 months. Also a low dose beta-blocke r when she goes home. AD/YOJANA Voice ID: [id number] Report ID: [id number]
--- NOTE | 2021-08-07 11:58 | P.PN ---
Subjective Date of Service: 08/07/21 Chief Complaint: Cellulitis; acute COPD exacerbation Subjective: Improving (Patient is doing better pain has improved blood cultures negative) Review of Systems General: Weakness Respiratory: Shortness of Breath Physical Examination - Vital Signs Temperature: 97.7 F Blood Pressure: 122/56 Pulse: 95 Respirations: 28 Pulse Ox (%): 95 - Physical Exam General: Oriented x3 Respiratory: Clear to auscultation bilaterally, Diminished, Expiratory wheezes Cardiovascular: Regular rate/rhythm - Studies Medications List Reviewed: Yes Assessment And Plan - Current Problems (Diagnosis) (1) COPD (chronic obstructive pulmonary disease) Current Visit: No Status: Acute Plan: Patient is doing better pain has improved plan to ambulate blood cultures negative change to p.o. antibiotic has underlying COPD patient has abnormal EKG with ST-T changes awaiting cardiac evaluation possible cardiac cath continue with steroids underlying severe COPD Qualifiers: Emphysema type: unspecified
[2021-08-07] MEDS: HYDROCODONE/CHLORPHEN 5 ML/OSYR PO PRN (12:46)
[2021-08-07] MEDS ORDERED: LIDOCAINE VISCOUS 2% SOLN 15 ML UDC PO PRN (12:49)
[2021-08-07] MEDS: NYSTATIN 500,000 UNIT/5 ML UDC PO SCH ×2 (13:53→20:12)
[2021-08-07] MEDS: ATORVASTATIN 40 MG TAB PO SCH (20:12)
[2021-08-07] MEDS: CEFDINIR 300 MG CAP PO SCH (20:12)
[2021-08-07] MEDS: clonazePAM 1 MG TAB PO SCH (20:13)
[2021-08-08] MEDS: carvediloL 12.5 MG TAB PO SCH ×2 (05:22→18:37)
[2021-08-08] MEDS: ENOXAPARIN 80 MG/0.8 ML SQ SCH ×2 (07:58→20:49)
[2021-08-08] MEDS: NYSTATIN 500,000 UNIT/5 ML UDC PO SCH ×3 (07:59→20:49)
[2021-08-08] MEDS: predniSONE 20 MG TAB PO SCH ×2 (07:59→20:49)
[2021-08-08] MEDS: CEFDINIR 300 MG CAP PO SCH (07:59)
[2021-08-08] MEDS: ARFORMOTEROL TARTRATE 15 MCG/2 ML VIAL.NEB NEB SCH ×2 (08:39→20:00)
[2021-08-08] MEDS ORDERED: Meropenem 1,000 MG in NA CHLORIDE 0.9% 100 ML IV SCH (12:00)
[2021-08-08] MEDS: FENTANYL CITR 100 MCG/2 ML IV PRN ×2 (13:18→23:48)
[2021-08-08] MEDS: NA CHLORIDE 0.9% IV SCH (13:41)
[2021-08-08] MEDS: MEROPENEM IV SCH (13:41)
[2021-08-08] MEDS ORDERED: GENTAMICIN IVPB SCH (14:00)
[2021-08-08] MEDS ORDERED: NA CHLORIDE 0.9% IVPB SCH (14:00)
--- NOTE | 2021-08-08 15:07 | PN ---
Subjective: Patient lying in bed. No new acute event. Chart reviewed. Objective: Vital Signs: Temperature 98, pulse 93, respirations 18, blood pressure 129/58. Lungs: Basal crackles. Heart: S1, S2, regular. Abdomen: Soft, nontender. Bowel sounds present. Extremities: No edema. Left leg erythematous changes and swelling noted. Laboratory Data: WBC 16,000, hemoglobin 12, platelets are 214. Chemistry shows sodium 140, potassiu m 4.6, chloride 105, bicarb 29, BUN 33, creatinine 1.2, glucose 124. Micro data shows blood cultures growing Pseudomonas aeruginosa. The patient is currently being treated with cefdinir. Assessment And Plan: 1.Cellulitis of left lower extremity and bacteremia secondary to Pseudomonas aeruginosa. 2.Pneumonia, improving. We will recommend to discontinue cefdinir and to start patient on ciproflox acin. We will follow the patient closely. Total course of 2 weeks of antibiotic will be recommended . NF/MODL Voice ID: [id number] Report ID: [id number]
[2021-08-08] MEDS: HYDROCODONE/CHLORPHEN 5 ML/OSYR PO PRN (15:10)
--- NOTE | 2021-08-08 15:56 | P.PN ---
Date of Service: 08/07/21 Subjective Subjective: Patient looks to be a little diaphoretic today. She is been coughing quite a bit according to her family member. Review of Systems 10-point ROS is otherwise unremarkable Physical Examination - Vital Signs Reviewed - Physical Exam General: Alert, In no apparent distress, Oriented x3 HEENT: Within normal limits Respiratory: Clear to auscultation bilaterally, Normal air movement Cardiovascular: Regular rate/rhythm, Normal S1 S2 Gastrointestinal: Normal bowel sounds, No tenderness Neurological: Normal speech, Normal tone, Normal affect Lymphatics: No axilla or inguinal lymphadenopathy - Studies Medications List Reviewed: Yes Assessment & Plan - Problems (Diagnosis) (1) Cellulitis Current Visit: Yes Status: Acute (2) Sepsis associated hypotension Current Visit: Yes Status: Acute (3) COPD (chronic obstructive pulmonary disease) Current Visit: No Status: Acute Qualifiers: Emphysema type: unspecified (4) Atrial fibrillation with rapid ventricular response Current Visit: Yes Status: Acute - Plan Continue with plan of care as mentioned below: 1. Continue with IV antibiotic 2. Continue with local wound care 3. strict blood pressure and blood sugar control 4. Gentle IV hydration 5. Monitor CBC 6. Strict blood sugar monitoring 7. Pain control 8. Cardiology consultation appreciated 9. Infectious Disease consultation appreciated 10. Pulmonary consultation appreciated 11. echocardiogram reviewed; mild diastolic heart failure 12. medication for rate control & anticoagulation 13. Physical therapy evaluation 14. GI and DVT prophylaxis
--- NOTE | 2021-08-08 15:59 | P.PN ---
Date of Service: 08/08/21 Subjective Subjective: Patient doing well today. Review of Systems 10-point ROS is otherwise unremarkable Physical Examination - Vital Signs Reviewed - Physical Exam General: Alert, In no apparent distress, Oriented x3 HEENT: Within normal limits Respiratory: Clear to auscultation bilaterally, Normal air movement Cardiovascular: Regular rate/rhythm, Normal S1 S2 Gastrointestinal: Normal bowel sounds, No tenderness Neurological: Normal speech, Normal tone, Normal affect Skin: Left lower extremity with some erythema to the caro; improved - Studies Medications List Reviewed: Yes Assessment & Plan - Problems (Diagnosis) (1) Cellulitis Current Visit: Yes Status: Acute (2) Sepsis secondary to Pseudomonas associated hypotension Current Visit: Yes Status: Acute (3) COPD (chronic obstructive pulmonary disease) Current Visit: No Status: Acute Qualifiers: Emphysema type: unspecified (4) Atrial fibrillation with rapid ventricular response Current Visit: Yes Status: Acute - Plan Continue with plan of care as mentioned below: 1. Continue with IV antibiotic; meropenem and gentamicin 2. Continue with local wound care to the left leg 3. strict blood pressure and blood sugar control 4. Hep-Lock IV 5. Monitor CBC and renal function closely 6. Strict blood sugar monitoring 7. Pain control 8. Cardiology consultation appreciated 9. Infectious Disease consultation appreciated 10. Pulmonary consultation appreciated 11. echocardiogram reviewed; mild diastolic heart failure 12. medication for rate control & anticoagulation 13. Physical therapy evaluation 14. GI and DVT prophylaxis
[2021-08-08] MEDS: IPRATROPIUM BROM 0.5MG/2.5ML NEB PRN (20:00)
[2021-08-08] MEDS: clonazePAM 1 MG TAB PO SCH (20:49)
[2021-08-08] MEDS: ATORVASTATIN 40 MG TAB PO SCH (20:49)
[2021-08-08] MEDS: BENZONATATE 100 MG CAP PO PRN (20:52)
[2021-08-09] MEDS ORDERED: Meropenem 1000 MG/VIAL IV ONE (02:10)
[2021-08-09] MEDS: NA CHLORIDE 0.9% IV SCH (02:12)
[2021-08-09] MEDS: MEROPENEM IV SCH (02:12)
[2021-08-09] MEDS: carvediloL 12.5 MG TAB PO SCH (05:21)
[2021-08-09 06:08] LABS: Absolute Lymphocytes (CBC) 0.1 K/uL (0.7-4.9); Hematocrit 32.4 % (36.0-45.0); Lymphocytes % 1.1 % (15.3-44.8); MCV 93.5 fL (80-100); MPV 7.5 fL (7.6-11.3); RBC Red Blood Cell Count 3.47 M/uL (3.86-4.86)
[2021-08-09 06:20] LABS: Albumin 1.6 g/dL (3.4-5.0); Bilirubin Total 0.2 mg/dL (0.2-1.0); Magnesium 2.3 mg/dL (1.8-2.4); Potassium 4.6 mmol/L (3.5-5.1); Protein, Total 6.4 g/dL (6.4-8.2)
[2021-08-09] MEDS: ARFORMOTEROL TARTRATE 15 MCG/2 ML VIAL.NEB NEB SCH ×2 (08:00→20:35)
--- NOTE | 2021-08-09 08:08 | ECHO ---
HEIGHT: 5 ft 3 in WEIGHT: 143 lb 4.808 oz DATE OF STUDY: 08/06/[address]: Santa Horne MD 2-DIMENSIONAL: YES M.MODE: YES DOPPLER: YES COLOR FLOW: YES TDS: PORTABLE: DEFINITY: BUBBLE STUDY: DIAGNOSIS: CONGESTIVE HEART FAILURE CARDIAC HISTORY: CATHERIZATION: SURGERY: PROSTHETIC VALVE: PACEMAKER: MEASUREMENTS (cm) DIASTOLIC (NORMALS) SYSTOLIC (NORMALS) IVSd 1.0 (0.6-1.2) LA Diam 3.2 (1.9-4.0) LVEF 79% LVIDd 3.9 (3.5-5.7) LVIDs 2.0 (2.0-3.5) %FS 46% LVPWd 1.0 (0.6-1.2) Ao Diam 2.6 (2.0-3.7) 2 DIMENSIONAL ASSESSMENT: RIGHT ATRIUM: NORMAL LEFT ATRIUM: NORMAL RIGHT VENTRICLE: NORMAL LEFT VENTRICLE: NORMAL TRICUSPID VALVE: NORMAL MITRAL VALVE: NORMAL PULMONIC VALVE: NORMAL AORTIC VALVE: NORMAL PERICARDIAL EFFUSION: NONE AORTIC ROOT: NORMAL LEFT VENTRICULAR WALL MOTION: NORMAL EJECTION FRACTION. DECREASED LEFT VENTRICULAR COMPLIANCE. DOPPLER/COLOR FLOW: DECREASED LEFT VENTRICULAR COMPLIANCE COMMENTS: DIASTOLIC DYSFUNCTION. NORMAL EJECTION FRACTION. NO EFFUSION. TECHNICALLY DIFFICULY STUDY. TECHNOLOGIST: ERIN STOREY
--- NOTE | 2021-08-09 08:23 | P.PN ---
Subjective Date of Service: 08/10/21 Chief Complaint: Pseudomonas bacteremia Subjective: Improving (Patient is improving condition stable blood cultures are positive for Pseudomonas) Review of Systems General: Weakness Respiratory: Shortness of Breath Physical Examination - Vital Signs Temperature: 97.6 F Blood Pressure: 140/67 Pulse: 99 Respirations: 16 Pulse Ox (%): 96 - Physical Exam General: Alert, Oriented x3 Respiratory: Diminished Cardiovascular: No edema, Normal S1 S2 - Studies Microbiology Data (last 24 hrs): 08/05/21 10:40 Blood - Blood Aerobic Blood Culture - Final Pseudomonas Aeruginosa 08/05/21 10:40 Blood - Blood Blood Culture Gram Stain - Final 08/05/21 10:55 Blood - Blood Aerobic Blood Culture - Final Pseudomonas Aeruginosa 08/05/21 10:55 Blood - Blood Blood Culture Gram Stain - Final Medications List Reviewed: Yes Assessment And Plan - Current Problems (Diagnosis) (1) COPD (chronic obstructive pulmonary disease) Current Visit: No Status: Acute Plan: Patient admitted with COPD exacerbation has Pseudomonas bacteremia currently on meropenem labs reviewed white count is declining hemodynamically stable oxygenation satisfactory reduce dose of prednisone patient's Qualifiers: Emphysema type: unspecified (2) Pseudomonal bacteremia Current Visit: Yes Status: Acute Plan: B/C all pos for MDR pseudomonas on Vabomere (3) Other nonspecific abnormal finding of lung field Current Visit: Yes Status: Acute Plan: RLL SPN 12 mm suspicious for cancer . NEed to f/u as outpatient with PET scan
[2021-08-09 09:06] LABS: Anisocytosis SLIGHT; Blood Morphology Comment NOTED (NOT SEEN); Platelet Estimate ADEQ
[2021-08-09] MEDS: NYSTATIN 500,000 UNIT/5 ML UDC PO SCH ×3 (09:20→20:20)
[2021-08-09] MEDS: POTASS/SODIUM PHOSPHATE 1 PKT POWD.PACK PO SCH ×3 (09:20→11:56)
[2021-08-09] MEDS: ENOXAPARIN 80 MG/0.8 ML SQ SCH ×2 (09:21→20:21)
[2021-08-09] MEDS: predniSONE 10 MG TAB PO SCH ×2 (09:29→20:20)
--- NOTE | 2021-08-09 13:53 | P.PN ---
Subjective Date of Service: 08/09/21 Chief Complaint: Pseudomonas bacteremia Subjective: New changes (Patient anxious to go home Spouse reports patient is weaker since the last couple of days No new fevers States significant pain over left leg Reported blood culture with multidrug-resistant Pseudomonas, being followed by ID Still on 3 L nasal cannula O2, patient reports using 2 to 3 L as needed) Spouse very agitated with increasing patient Coreg for rate control yesterday Physical Examination - Vital Signs Temperature: 97.0 F Blood Pressure: 122/64 Pulse: 93 Respirations: 24 Pulse Ox (%): 100 - Studies Medications List Reviewed: Yes Assessment And Plan - Code Status/Comfort Care Code Status: Full Code Physician Review: Patient Assessed, Agree with Above Assessment and Plan Physician Review Additional Text: 08/09/21 13:47 - Physical Exam General: Alert, frail looking,nasal cannula O23 L HEENT: Within normal limits Respiratory: Coarse bibasilar crepitation with fine expiratory wheezes Cardiovascular: Regular rate/rhythm, Normal S1 S2 Gastrointestinal: Normal bowel sounds, No tenderness Neurological: Normal speech, Normal tone, Normal affect Skin: Left lower extremity with some erythema to the caro; significant tenderness of the left leg, trace pedal edema right leg - Studies CT abdomen with contrast showed 12 mm right lower lobe pulmonary nodule worrisome for malignancy, 3 months follow-up recommended, Right pleural effusion with possible pneumonitis Left perinephric stranding suggestive of pyelonephritis Blood culture and urine culture with Pseudomonas aeruginosa Chest x-ray with mild pulmonary edema Assessment & Plan - Problems (Diagnosis) (1) Cellulitis Current Visit: Yes Status: Acute (2) Sepsis secondary to Pseudomonas associated hypotension Current Visit: Yes Status: Acute (3) COPD (chronic obstructive pulmonary disease) Current Visit: No Status: Acute Qualifiers: Emphysema type: unspecified (4) Atrial fibrillation with rapid ventricular response Current Visit: Yes Status: Acute 5 Pseudomonas UTI with bacteremia 6 left pyelonephritis 7 mild CHF exacerbationlikely diastolic 8 asthenia with weakness 9 COPD with mild acute exacerbation 10 atrial fibrillation with RVRfamily refusing increasing Coreg Plan Continue antibiotics with gentamicin/meropenem although culture sensitive to Levaquin Option of initiating patient on Levaquin with steroid coverage while inpatient discussed with spouse. He is very adamant patient will not have fluoroquinolones Pharmacy and ID discussed with, defer to ID Mild dyspnea may be due to COPD or CHF exacerbation, start IV Lasix Add duo nebs with Xopenex as needed Family/patient spouse refusing increasing Coreg feels his contributors of patient weakness and lethargy, will reduce Coreg back to 6.25 although heart r ate in the mid 90s Might need add Cardizem for rate control Strict glycemic control, continue insulin regimen Continue blood pressure control Follow PT ability May need PICC line with prolonged antibiotics for at least 2 weeks Echo reviewed, mild diastolic CHF noted Physical therapy evaluation GI and DVT prophylaxis Time Spent Managing PTS Care (In Minutes): 35
[2021-08-09] MEDS: FUROSEMIDE 40 MG/4 ML VIAL ONE ×2 (14:25→14:33)
[2021-08-09] MEDS: FUROSEMIDE 20 MG/ 2ML VIAL IV SCH (15:00)
--- NOTE | 2021-08-09 15:47 | P.PN ---
Subjective Date of Service: 08/09/21 Chief Complaint: Pseudomonas bacteremia Patient seen and examined at bedside, still having pain in left lower extremity. New blister formation on top of foot. Review of Systems 10-point ROS is otherwise unremarkable Physical Examination - Vital Signs Temperature: 97.0 F Blood Pressure: 122/64 Pulse: 93 Respirations: 24 Pulse Ox (%): 100 - Studies Laboratory Last Values WBC 6.1 K/uL (4.3-10.9) 08/05/21 10:40 RBC 4.42 M/uL (3.86-4.86) 08/05/21 10:40 Hgb 13.7 g/dL (12.0-15.0) 08/05/21 10:40 Hct 39.9 % (36.0-45.0) 08/05/21 10:40 MCV 90.3 fL (80-100) 08/05/21 10:40 MCH 30.9 pg (27.0-35.0) 08/05/21 10:40 MCHC 34.2 g/dL (32.0-36.0) 08/05/21 10:40 RDW 17.3 % (12.1-15.2) H 08/05/21 10:40 Plt Count 284 K/uL (152-406) 08/05/21 10:40 MPV 7.2 fL (7.6-11.3) L 08/05/21 10:40 Neutrophils % 89.7 % (41.7-73.7) H 08/05/21 10:40 Lymphocytes % 7.5 % (15.3-44.8) L 08/05/21 10:40 Monocytes % 2.2 % (3.3-12.3) L 08/05/21 10:40 Eosinophils % 0.5 % (0-4.4) 08/05/21 10:40 Basophils % 0.1 % (0-1.3) 08/05/21 10:40 Absolute Neutrophils 5.5 K/uL (1.8-8.0) 08/05/21 10:40 Absolute Lymphocytes 0.5 K/uL (0.7-4.9) L 08/05/21 10:40 Absolute Monocytes 0.1 K/uL (0.1-1.3) 08/05/21 10:40 Absolute Eosinophils 0.0 K/uL (0-0.5) 08/05/21 10:40 Absolute Basophils 0.0 K/uL (0-0.5) 08/05/21 10:40 PT 10.3 SECONDS (9.5-12.5) 08/05/21 10:40 INR 0.94 08/05/21 10:40 APTT 21.6 SECONDS (24.3-36.9) L 08/05/21 10:40 Sodium 138 mmol/L (136-145) 08/05/21 10:40 Potassium 4.0 mmol/L (3.5-5.1) 08/05/21 10:40 Chloride 103 mmol/L (98-107) 08/05/21 10:40 Carbon Dioxide 32 mmol/L (21-32) 08/05/21 10:40 Anion Gap 7.0 mEq/L (5.0-15.0) 08/05/21 10:40 BUN 32 mg/dL (7-18) H 08/05/21 10:40 Creatinine 0.82 mg/dL (0.55-1.3) 08/05/21 10:40 Est GFR (CKD-EPI) 78 ml/min (=/>90) L 08/05/21 10:40 Glucose 79 mg/dL (74-106) 08/05/21 10:40 Lactic Acid 1.6 mmol/L (0.4-2.0) 08/05/21 10:40 Calcium 9.0 mg/dL (8.5-10.1) 08/05/21 10:40 Total Bilirubin 0.3 mg/dL (0.2-1.0) 08/05/21 10:40 AST 20 U/L (15-37) 08/05/21 10:40 ALT 36 U/L (12-78) 08/05/21 10:40 Alkaline Phosphatase 37 U/L (45-117) L 08/05/21 10:40 Troponin I High Sens 95.3 pg/mL (<58.9) H* 08/05/21 10:40 NT-Pro-B Natriuret Pep 641 pg/mL (<125) H 08/05/21 10:40 Serum Total Protein 6.3 g/dL (6.4-8.2) L 08/05/21 10:40 Albumin 2.8 g/dL (3.4-5.0) L 08/05/21 10:40 Globulin 3.5 g/dL (2.3-3.5) 08/05/21 10:40 Albumin/Globulin Ratio 0.8 (1.1-1.8) L 08/05/21 10:40 SARS-CoV-2 Rap RNA(RT-PCR) Negative (NEGATIVE) 08/05/21 10:40 Medications List Reviewed: Yes Assessment And Plan - Plan Physical Exam: General: Alert, In no apparent distress HEENT: Atraumatic, Normocephalic Neck: 2+ carotid pulse no bruit Respiratory: Other (Bilateral crackles/rales) Cardiovascular: Regular rate/rhythm, Normal S1 S2 Capillary refill: <2 Seconds Gastrointestinal: Normal bowel sounds, Soft and benign Integumentary: Other (Left lower extremity cellulitis with swelling) Conclusions/Impression: Antibiotics Vabomere: 08/09current Meropenem/gentamicin: Zosyn: Assessment/plan Bacteremia Blood cultures obtained on 08/05 grew multidrug-resistant Pseudomonas Ander Jc. Zosyn discontinued, patient placed on meropenem gentamicin combination. This was discontinued on 08/09 and patient was started on Vabomere. Repeat blood cultures are pending. Patient will need antibiotics for at least 2 weeks. -Urine culture also grew multidrug-resistant Pseudomonas, this is likely source of infection Left lower extremity cellulitis Continue to keep leg elevated Continue current antibiotics Patient does have wound on her upper inner thigh however it is scabbed over and is healing. This wound is from when her dog jumped up and scratched on her. Possible source of the cellulitis infection could be Pasteurella species, is covered with Vabomere. -Blister forming on top of left foot: Apply Silvadene ointment to area. Venous Doppler negative for DVT Pneumonia Patient tachypneic and short of breath on admission. Has improved in the past 24 hours. Currently on 3L of oxygen via nasal cannula Chest x-ray showed mild interstitial opacities bilaterally concerning for infiltrates versus pulmonary edema. Patient does have history of COPD, recommend continuing nebulizer treatments and restarting home trilogy Pulmonary nodule CT abdomen pelvis showed a 12 mm right lower lobe nodule. Recommend to repeat scan in 3 months. HFpEF -Medical management per primary team Leukocytosis -Continue to trend, patient afebrile Plan of care discussed Dr. Richardson Thank for consultation Physician Review: Patient Assessed, Agree with Above Assessment and Plan
[2021-08-09] MEDS ORDERED: MAGIC MOUTHWASH 180 ML BTL PO PRN ×2 (15:53→16:01)
[2021-08-09] MEDS ORDERED: MEROPENEM IV SCH (17:00)
[2021-08-09] MEDS ORDERED: VABORBACTAM IV SCH (17:00)
[2021-08-09] MEDS ORDERED: NA CHLORIDE 0.9% IV SCH (17:00)
[2021-08-09] MEDS ORDERED: MEROPENEM/VABORBACTAM 4 GM in NA CHLORIDE 0.9% 250 ML IV SCH (17:00)
[2021-08-09] MEDS: MEROPENEM/VABORBACTAM 4 GM in NA CHLORIDE 0.9% 250 ML IV SCH (17:16)
[2021-08-09] MEDS: FENTANYL CITR 100 MCG/2 ML IV PRN (20:16)
[2021-08-09] MEDS: ATORVASTATIN 40 MG TAB PO SCH (20:20)
[2021-08-09] MEDS: carvediloL 6.25 MG TAB PO SCH (20:20)
[2021-08-09] MEDS: clonazePAM 1 MG TAB PO SCH (20:20)
[2021-08-09] MEDS: IPRATROPIUM BROM 0.5MG/2.5ML NEB PRN (20:35)
[2021-08-10] MEDS: MEROPENEM/VABORBACTAM 4 GM in NA CHLORIDE 0.9% 250 ML IV SCH ×3 (01:23→16:58)
[2021-08-10] MEDS: FENTANYL CITR 100 MCG/2 ML IV PRN ×2 (01:37→06:27)
[2021-08-10] MEDS: BENZONATATE 100 MG CAP PO PRN ×2 (05:48→20:11)
[2021-08-10 06:26] LABS: Absolute Lymphocytes (CBC) 0.2 K/uL (0.7-4.9); Hematocrit 34.1 % (36.0-45.0); MCV 92.1 fL (80-100); MPV 7.5 fL (7.6-11.3)
[2021-08-10 06:49] LABS: Albumin 1.8 g/dL (3.4-5.0); Bilirubin Total 0.3 mg/dL (0.2-1.0); Digoxin Level 0.9 ng/mL (0.80-2.00); Phosphorus 2.1 mg/dL (2.5-4.9); Potassium 4.4 mmol/L (3.5-5.1); Protein, Total 6.5 g/dL (6.4-8.2)
[2021-08-10] MEDS: LEVALBUTEROL 1.25 MG/3 ML NEB NEB PRN ×2 (07:55→20:25)
[2021-08-10] MEDS: ARFORMOTEROL TARTRATE 15 MCG/2 ML VIAL.NEB NEB SCH ×2 (07:55→20:25)
[2021-08-10] MEDS ORDERED: SILVER SULFADIAZINE 1% 25 GM TOP SCH (09:00)
[2021-08-10] MEDS: SILVER SULFADIAZINE 1% 50 GM TOP SCH (09:00)
[2021-08-10] MEDS: ENOXAPARIN 80 MG/0.8 ML SQ SCH ×2 (10:53→20:11)
[2021-08-10] MEDS: predniSONE 10 MG TAB PO SCH ×2 (10:54→20:12)
[2021-08-10] MEDS: DIGOXIN 0.125 MG TABLET PO SCH (10:54)
[2021-08-10] MEDS: carvediloL 6.25 MG TAB PO SCH ×2 (10:54→20:12)
[2021-08-10] MEDS: FUROSEMIDE 20 MG/ 2ML VIAL IV SCH (10:54)
[2021-08-10] MEDS: NYSTATIN 500,000 UNIT/5 ML UDC PO SCH ×3 (10:55→20:11)
--- NOTE | 2021-08-10 10:55 | RAD REPORT ---
EXAM DESCRIPTION: RAD - Chest Single View - 08/10/2021 10:21 am CLINICAL HISTORY: Device placement PICC line placement IMPRESSION: PICC line with its tip in the mid superior vena cava
--- NOTE | 2021-08-10 12:11 | P.PN ---
Subjective Date of Service: 08/10/21 Chief Complaint: Pseudomonas bacteremia Patient seen and examined at bedside, seems to be declining lethargic at bedside. Review of Systems 10-point ROS is otherwise unremarkable Physical Examination - Vital Signs Temperature: 97.6 F Blood Pressure: 104/67 Pulse: 99 Respirations: 16 Pulse Ox (%): 96 - Studies Microbiology Data (last 24 hrs): 08/05/21 10:55 Blood - Blood Aerobic Blood Culture - Final Pseudomonas Aeruginosa 08/05/21 10:55 Blood - Blood Blood Culture Gram Stain - Final 08/05/21 10:55 Blood - Blood Anaerobic Blood Culture - Final No growth in 5 days. 08/05/21 10:40 Blood - Blood Aerobic Blood Culture - Final Pseudomonas Aeruginosa 08/05/21 10:40 Blood - Blood Blood Culture Gram Stain - Final 08/05/21 10:40 Blood - Blood Anaerobic Blood Culture - Final No growth in 5 days. Medications List Reviewed: Yes Assessment And Plan - Plan Physical Exam: General: Alert, In no apparent distress HEENT: Atraumatic, Normocephalic. Dried blood noted multiple sores on the buccal mucosa inside of the mouth. Neck: 2+ carotid pulse no bruit Respiratory: Other (Bilateral crackles/rales) Cardiovascular: Regular rate/rhythm, Normal S1 S2 Capillary refill: <2 Seconds Gastrointestinal: Normal bowel sounds, Soft and benign Integumentary: Other (Left lower extremity cellulitis with swelling) Conclusions/Impression: Antibiotics Vabomere: 08/09current Meropenem/gentamicin: Zosyn: Assessment/plan Bacteremia Blood cultures obtained on 08/05 grew multidrug-resistant Pseudomonasarginosa. Zosyn discontinued, patient placed on meropenem gentamicin combination. This was discontinued on 08/09 and patient was started on Vabomere. Repeat blood cultures are pending. Patient will need antibiotics for at least 2 weeks. -Urine culture also grew multidrug-resistant Pseudomonas, this is likely source of infection Left lower extremity cellulitis Continue to keep leg elevated Continue current antibiotics Patient does have wound on her upper inner thigh however it is scabbed over and is healing. This wound is from when her dog jumped up and scratched on her. Possible source of the cellulitis infection could be Pasteurella species, is covered with Vabomere. -Blister forming on top of left foot: Apply Silvadene ointment to area. Venous Doppler negative for DVT Pneumonia -Still has significant crackles/rales on auscultation. Currently on 3L of oxygen via nasal cannula Chest x-ray showed mild interstitial opacities bilaterally concerning for infiltrates versus pulmonary edema. Recommend repeating chest x-ray/chest CT. -Patient does have history of emphysema, continue scheduled nebulized treatments and home trilogy. -Continue current antibiotic Pulmonary nodule CT abdomen pelvis showed a 12 mm right lower lobe nodule. Recommend to repeat scan in 3 months. Oral thrush Continue Magic mouthwash and nystatin oral solution HFpEF -Medical management per primary team Leukocytosis -Continue to trend, patient afebrile Plan of care discussed Dr. Richardson Thank for consultation Physician Review: Patient Assessed, Agree with Above Assessment and Plan
[2021-08-10] MEDS ORDERED: NALOXONE 0.4 MG/ML VIAL IV ONE (13:19)
[2021-08-10] MEDS ORDERED: NALOXONE HCL 2 MG/2 ML VIAL ONE (13:25)
--- NOTE | 2021-08-10 13:29 | P.PN ---
Subjective Date of Service: 08/10/21 Chief Complaint: Pseudomonas bacteremia Patient seen today, tolerating p.o. Still having shortness of breath Complain of insomnia last night Spouse not happy with patient drowsiness and declining function Physical Examination - Vital Signs Temperature: 97.6 F Blood Pressure: 104/67 Pulse: 99 Respirations: 16 Pulse Ox (%): 96 - Studies Microbiology Data (last 24 hrs): 08/05/21 10:55 Blood - Blood Aerobic Blood Culture - Final Pseudomonas Aeruginosa 08/05/21 10:55 Blood - Blood Blood Culture Gram Stain - Final 08/05/21 10:55 Blood - Blood Anaerobic Blood Culture - Final No growth in 5 days. 08/05/21 10:40 Blood - Blood Aerobic Blood Culture - Final Pseudomonas Aeruginosa 08/05/21 10:40 Blood - Blood Blood Culture Gram Stain - Final 08/05/21 10:40 Blood - Blood Anaerobic Blood Culture - Final No growth in 5 days. Medications List Reviewed: Yes Assessment And Plan Physician Review: Patient Assessed, Agree with Above Assessment and Plan Physician Review Additional Text: - Physical Exam General: Alert, frail looking,nasal cannula O23 L HEENT: Within normal limits Respiratory: Improved bibasilar crepitus, no wheeze today Cardiovascular: Regular rate/rhythm, Normal S1 S2 Gastrointestinal: Normal bowel sounds, No tenderness Neurological: Normal speech, Normal tone, Normal affect Skin: Left lower extremity with some erythema to the caro; significant tenderness of the left leg, trace pedal edema right leg - Studies CT abdomen with contrast showed 12 mm right lower lobe pulmonary nodule worrisome for malignancy, 3 months follow-up recommended, Right pleural effusion with possible pneumonitis Left perinephric stranding suggestive of pyelonephritis Blood culture and urine culture with Pseudomonas aeruginosa Chest x-ray with mild pulmonary edema Assessment & Plan - Problems (Diagnosis) (1) Cellulitis Current Visit: Yes Status: Acute (2) Sepsis secondary to Pseudomonas associated hypotension Current Visit: Yes Status: Acute (3) COPD (chronic obstructive pulmonary disease) Current Visit: No Status: Acute Qualifiers: Emphysema type: unspecified (4) Atrial fibrillation with rapid ventricular response Current Visit: Yes Status: Acute 5 Pseudomonas UTI with bacteremia 6 left pyelonephritis 7 mild CHF exacerbationlikely diastolic 8 asthenia with weakness 9 COPD with mild acute exacerbation 10 atrial fibrillation with RVRfamily refusing increasing Coreg Plan Continue antibiotics with gentamicin/meropenem although culture sensitive to Levaquin, status post refused Levaquin desensitization Continue antibiotics regimen for now, explained to patient and spouse that they would need at least 14-day of coverage Might combine COPD/CHF exacerbation, continue Lasix Continue Xopenex as needed Noted patient is getting fentanyl, dose given earlier this morning, will DC as may be contributing to drowsiness Borderline elevated heart rate, added digoxin, continue low-dose Coreg(patient's past refusing increased dose of Coreg ) Strict glycemic control, continue insulin regimen Continue blood pressure control Follow PT ability May need PICC line with prolonged antibiotics for at least 2 weeks Echo reviewed, mild diastolic CHF noted Continue physical therapy -poor ambulation, need for SNF or inpatient rehab discussed with spouse GI and DVT prophylaxis Addendum [employer] called for patient who O2 sats was in the 70s O2 not well connected, also drowsy. Patient placed on BiPAP. Stat ABG shows pH of 7.43, PCO2 of 34, PO2 of 98. Patient still remain drowsy with minimal response to Touch with opening of her eyes. 0.4 mg given, patient slightly woke up more, was able to be more conversant. We will transfer to ICU Weaned off BiPAP Was obtain CT chest to check for improvement in pneumonia/pulmonary edema 08/10/21 13:32 Time Spent Managing PTS Care (In Minutes): 35
[2021-08-10 13:44] LABS: Arterial Blood Carboxyhemoglob 1.1 % (0-1.5); Blood Gas Oxyhemoglobin 95.4 % (94-97); Blood O2 Saturation 97.6 % (92-98.5)
--- NOTE | 2021-08-10 15:00 | RAD REPORT ---
EXAM DESCRIPTION: CT - Chest Angio - 08/10/2021 2:51 pm CLINICAL HISTORY: r/o PE and worsneing pna COMPARISON: Abdomen W Contrast dated 08/06/2021 FINDINGS: Chest Wall: Tiny left thyroid nodule. Lungs: 16 mm right lower lobe pulmonary nodule is not significantly changed. Emphysema. Dependent ate lectasis and/or pneumonia. Pleura: Small pleural effusions. Mediastinum/kurt: No pathologic lymphadenopathy. Pulmonary arteries/Aorta: No filling defect identified. No aortic aneurysm. Heart: No significant pericardial effusion. Normal heart size. Upper abdomen: No acute abnormality. Bones: No acute abnormality. All CT scans are performed using dose optimization technique as appropriate and may include automated exposure control or mA/KV adjustment according to patient size. IMPRESSION: Negative for pulmonary embolism. Small effusions with underlying atelectasis and/or mild pneumonia. Solid 16 mm right lower lobe pulmonary nodule. The patient has evidence of emphysema and so is presum ably high risk for lung cancer. Neoplasm is not excluded. Consider PET/CT and/or biopsy when the manisha ent's clinical condition improves.
[2021-08-10] MEDS: ATORVASTATIN 40 MG TAB PO SCH (20:11)
[2021-08-10] MEDS: ACETAMINOPHEN 500 MG TAB PO PRN (20:11)
[2021-08-10] MEDS: clonazePAM 1 MG TAB PO SCH (20:12)
[2021-08-11] MEDS: MEROPENEM/VABORBACTAM 4 GM in NA CHLORIDE 0.9% 250 ML IV SCH ×3 (01:11→18:25)
[2021-08-11] MEDS: LEVALBUTEROL 1.25 MG/3 ML NEB NEB PRN (04:55)
[2021-08-11 05:15] LABS: Absolute Lymphocytes (CBC) 0.2 K/uL (0.7-4.9); Hematocrit 32.8 % (36.0-45.0); MCV 91.8 fL (80-100); MPV 7.8 fL (7.6-11.3); RBC Red Blood Cell Count 3.57 M/uL (3.86-4.86)
[2021-08-11] MEDS ORDERED: FUROSEMIDE 40 MG/4 ML VIAL IV ONE (05:27)
[2021-08-11] MEDS ORDERED: FUROSEMIDE 40 MG/4 ML VIAL ONE (05:40)
[2021-08-11 05:43] LABS: Albumin 1.8 g/dL (3.4-5.0); Bilirubin Total 0.4 mg/dL (0.2-1.0); Digoxin Level 0.9 ng/mL (0.80-2.00); Magnesium 2.1 mg/dL (1.8-2.4); Protein, Total 6.1 g/dL (6.4-8.2)
[2021-08-11] MEDS: ARFORMOTEROL TARTRATE 15 MCG/2 ML VIAL.NEB NEB SCH ×2 (07:43→20:15)
[2021-08-11] MEDS ORDERED: POTASSIUM PHOS IN 0.9 % NACL 15 MMOL/250 ML BAG IV ONE ×2 (08:00→11:30)
[2021-08-11] MEDS: carvediloL 6.25 MG TAB PO SCH ×2 (08:52→20:44)
[2021-08-11] MEDS: DIGOXIN 0.125 MG TABLET PO SCH ×2 (08:52→18:28)
[2021-08-11] MEDS: ENOXAPARIN 80 MG/0.8 ML SQ SCH (08:52)
[2021-08-11] MEDS: FUROSEMIDE 20 MG/ 2ML VIAL IV SCH (08:52)
[2021-08-11] MEDS: predniSONE 10 MG TAB PO SCH (08:52)
[2021-08-11] MEDS: NYSTATIN 500,000 UNIT/5 ML UDC PO SCH ×3 (08:52→20:44)
[2021-08-11] MEDS: SILVER SULFADIAZINE 1% 50 GM TOP SCH (08:53)
[2021-08-11] MEDS: DILTIAZEM HCL 60 MG TAB PO SCH ×3 (11:30→18:25)
[2021-08-11] MEDS ORDERED: LEVALBUTEROL 1.25 MG/3 ML NEB NEB ONE (12:01)
[2021-08-11] MEDS ORDERED: METHYLPREDNISOLONE 125 MG INJ IV ONE (12:07)
--- NOTE | 2021-08-11 12:08 | P.PN ---
Subjective Date of Service: 08/11/21 Chief Complaint: Pseudomonas bacteremia Subjective: New changes (Seen today, seen in ICU, on BiPAP overnight Patient dyspneic without the BiPAP Anorexia this morning) Patient seen today, tolerating p.o. Still having shortness of breath Complain of insomnia last night Spouse not happy with patient drowsiness and declining function Physical Examination - Vital Signs Temperature: 97.6 F Blood Pressure: 116/64 Pulse: 115 Respirations: 25 Pulse Ox (%): 98 - Studies Microbiology Data (last 24 hrs): 08/05/21 10:55 Blood - Blood Aerobic Blood Culture - Final Pseudomonas Aeruginosa 08/05/21 10:55 Blood - Blood Blood Culture Gram Stain - Final 08/05/21 10:55 Blood - Blood Anaerobic Blood Culture - Final No growth in 5 days. 08/05/21 10:40 Blood - Blood Aerobic Blood Culture - Final Pseudomonas Aeruginosa 08/05/21 10:40 Blood - Blood Blood Culture Gram Stain - Final 08/05/21 10:40 Blood - Blood Anaerobic Blood Culture - Final No growth in 5 days. Medications List Reviewed: Yes Assessment And Plan Physician Review: Patient Assessed, Agree with Above Assessment and Plan Physician Review Additional Text: - Physical Exam General: Alert, frail looking,nasal cannula on BiPAP, intermittently drowsy HEENT: Within normal limits Respiratory: Improved bibasilar crepitus, recurrent moderate wheeze bilaterally today Cardiovascular: Regular rate/rhythm, Normal S1 S2 Gastrointestinal: Normal bowel sounds, No tenderness Neurological: Normal speech, Normal tone, Normal affect Skin: Fading left lower extremity erythema, decreasing level of edema, none over right - Studies CT abdomen with contrast showed 12 mm right lower lobe pulmonary nodule worrisome for malignancy, 3 months follow-up recommended, Right pleural effusion with possible pneumonitis Left perinephric stranding suggestive of pyelonephritis Blood culture and urine culture with Pseudomonas aeruginosa Chest x-ray with mild pulmonary edema Assessment & Plan - Problems (Diagnosis) (1) Cellulitis Current Visit: Yes Status: Acute (2) Sepsis secondary to Pseudomonas associated hypotension Current Visit: Yes Status: Acute (3) COPD (chronic obstructive pulmonary disease) Current Visit: No Status: Acute Qualifiers: Emphysema type: unspecified (4) Atrial fibrillation with rapid ventricular response Current Visit: Yes Status: Acute 5 Pseudomonas UTI with bacteremia 6 left pyelonephritis 7 mild CHF exacerbationlikely diastolic 8 asthenia with weakness 9 COPD with mild acute exacerbation 10 atrial fibrillation with RVRfamily refusing increasing Coreg Plan Worsening respiratory failure May be due to COPD exacerbation Medication reviewed, appears not to be getting duo nebs Will switch DuoNebs to scheduled rather than as needed Continue low-dose prednisonedose extra Solu-Medrol x1 today Repeat blood culture negative to date, continue Merrem/gentamicin for total of 14-day course for Pseudomonas pyelonephritis and bacteremia Still uncontrolled A. fib with RVR, continue Coreg, family refused dose increased, continue digoxin Will add Cardizem scheduled doses Continue Lasix for CHF exacerbation combine COPD/CHF exacerbation, continue Lasix Status post fentanyl scheduled doses with drowsiness yesterday, required Narcan Continue to avoid opioids for now Strict glycemic control, continue insulin regimen Continue blood pressure control Follow PT ability Echo reviewed, mild diastolic CHF noted Continue physical therapy -poor ambulation, need for SNF or inpatient rehab discussed with spouse GI and DVT prophylaxis Spouse at bedside discussed with. Dr. Kumariulmonary discussed with , will come back to reevaluate patient 08/11/21 12:08
--- NOTE | 2021-08-11 13:05 | P.PN ---
Subjective Date of Service: 08/11/21 Chief Complaint: Pseudomonas bacteremia Patient seen and examined at bedside, transferred to ICU yesterday after having a rapid response. Patient was very lethargic, thought to be septic Narcan was administered, patient improved. Currently on 2 L of oxygen intermittently's burst with BiPAP. Review of Systems 10-point ROS is otherwise unremarkable Physical Examination - Vital Signs Temperature: 97.6 F Blood Pressure: 116/64 Pulse: 115 Respirations: 25 Pulse Ox (%): 98 - Studies Laboratory Last Values WBC 6.1 K/uL (4.3-10.9) 08/05/21 10:40 RBC 4.42 M/uL (3.86-4.86) 08/05/21 10:40 Hgb 13.7 g/dL (12.0-15.0) 08/05/21 10:40 Hct 39.9 % (36.0-45.0) 08/05/21 10:40 MCV 90.3 fL (80-100) 08/05/21 10:40 MCH 30.9 pg (27.0-35.0) 08/05/21 10:40 MCHC 34.2 g/dL (32.0-36.0) 08/05/21 10:40 RDW 17.3 % (12.1-15.2) H 08/05/21 10:40 Plt Count 284 K/uL (152-406) 08/05/21 10:40 MPV 7.2 fL (7.6-11.3) L 08/05/21 10:40 Neutrophils % 89.7 % (41.7-73.7) H 08/05/21 10:40 Lymphocytes % 7.5 % (15.3-44.8) L 08/05/21 10:40 Monocytes % 2.2 % (3.3-12.3) L 08/05/21 10:40 Eosinophils % 0.5 % (0-4.4) 08/05/21 10:40 Basophils % 0.1 % (0-1.3) 08/05/21 10:40 Absolute Neutrophils 5.5 K/uL (1.8-8.0) 08/05/21 10:40 Absolute Lymphocytes 0.5 K/uL (0.7-4.9) L 08/05/21 10:40 Absolute Monocytes 0.1 K/uL (0.1-1.3) 08/05/21 10:40 Absolute Eosinophils 0.0 K/uL (0-0.5) 08/05/21 10:40 Absolute Basophils 0.0 K/uL (0-0.5) 08/05/21 10:40 PT 10.3 SECONDS (9.5-12.5) 08/05/21 10:40 INR 0.94 08/05/21 10:40 APTT 21.6 SECONDS (24.3-36.9) L 08/05/21 10:40 Sodium 138 mmol/L (136-145) 08/05/21 10:40 Potassium 4.0 mmol/L (3.5-5.1) 08/05/21 10:40 Chloride 103 mmol/L (98-107) 08/05/21 10:40 Carbon Dioxide 32 mmol/L (21-32) 08/05/21 10:40 Anion Gap 7.0 mEq/L (5.0-15.0) 08/05/21 10:40 BUN 32 mg/dL (7-18) H 08/05/21 10:40 Creatinine 0.82 mg/dL (0.55-1.3) 08/05/21 10:40 Est GFR (CKD-EPI) 78 ml/min (=/>90) L 08/05/21 10:40 Glucose 79 mg/dL (74-106) 08/05/21 10:40 Lactic Acid 1.6 mmol/L (0.4-2.0) 08/05/21 10:40 Calcium 9.0 mg/dL (8.5-10.1) 08/05/21 10:40 Total Bilirubin 0.3 mg/dL (0.2-1.0) 08/05/21 10:40 AST 20 U/L (15-37) 08/05/21 10:40 ALT 36 U/L (12-78) 08/05/21 10:40 Alkaline Phosphatase 37 U/L (45-117) L 08/05/21 10:40 Troponin I High Sens 95.3 pg/mL (<58.9) H* 08/05/21 10:40 NT-Pro-B Natriuret Pep 641 pg/mL (<125) H 08/05/21 10:40 Serum Total Protein 6.3 g/dL (6.4-8.2) L 08/05/21 10:40 Albumin 2.8 g/dL (3.4-5.0) L 08/05/21 10:40 Globulin 3.5 g/dL (2.3-3.5) 08/05/21 10:40 Albumin/Globulin Ratio 0.8 (1.1-1.8) L 08/05/21 10:40 SARS-CoV-2 Rap RNA(RT-PCR) Negative (NEGATIVE) 08/05/21 10:40 Microbiology Data (last 24 hrs): 08/05/21 10:55 Blood - Blood Aerobic Blood Culture - Final Pseudomonas Aeruginosa 08/05/21 10:55 Blood - Blood Blood Culture Gram Stain - Final 08/05/21 10:55 Blood - Blood Anaerobic Blood Culture - Final No growth in 5 days. 08/05/21 10:40 Blood - Blood Aerobic Blood Culture - Final Pseudomonas Aeruginosa 08/05/21 10:40 Blood - Blood Blood Culture Gram Stain - Final 08/05/21 10:40 Blood - Blood Anaerobic Blood Culture - Final No growth in 5 days. Medications List Reviewed: Yes Assessment And Plan - Plan Physical Exam: General: Alert, In no apparent distress HEENT: Atraumatic, Normocephalic. Dried blood noted on lips multiple sores on the buccal mucosa inside of the mouth. Neck: 2+ carotid pulse no bruit Respiratory: Other (Bilateral crackles/rales) Cardiovascular: Regular rate/rhythm, Normal S1 S2 Capillary refill: <2 Seconds Gastrointestinal: Normal bowel sounds, Soft and benign Integumentary: Other (Left lower extremity cellulitis with swelling) Conclusions/Impression: Antibiotics Vabomere: 08/09current Meropenem/gentamicin: Zosyn: Assessment/plan Bacteremia Blood cultures obtained on 08/05 grew multidrug-resistant Pseudomonasarginosa. Zosyn discontinued, patient placed on meropenem gentamicin combination. This was discontinued on 08/09 and patient was started on Vabomere. Repeat blood cu ltures negative. Patient will need antibiotics for at least 2 weeks. -Urine culture also grew multidrug-resistant Pseudomonas, this is likely source of infection -Right arm PICC line placed on 08/09 Left lower extremity cellulitis Continue to keep leg elevated Continue current antibiotics Patient does have wound on her upper inner thigh however it is scabbed over and is healing. This wound is from when her dog jumped up and scratched on her. Possible source of the cellulitis infection could be Pasteurella species, is covered with Vabomere. -Blister forming on top of left foot: Apply Silvadene ointment to area. Venous Doppler negative for DVT Pneumonia -Still has significant crackles/rales on auscultation. Currently on 3L of oxygen via nasal cannula with intermittent BiPAP Most recent chest CT obtained on 08/10 showed small effusions with underlying atelectasis versus mild pneumonia, emphysema changes, and a 16mm right lower lobe pulmonary nodule -continue scheduled nebulized treatments and home trilogy. -Continue current antibiotic -Sputum culture pending Pulmonary nodule CT chest showed 16mm right lower lobe pulmonary nodule. Cannot rule out neoplasm. Recommend PET scan/biopsy. Oral thrush Continue Magic mouthwash and nystatin oral solution HFpEF -Medical management per primary team Leukocytosis -Resolved, patient afebrile Plan of care discussed Dr. Richardson Thank for consultation Physician Review: Patient Assessed, Agree with Above Assessment and Plan
[2021-08-11] MEDS: IPRATROPIUM BROM 0.5MG/2.5ML NEB SCH ×2 (13:09→20:15)
[2021-08-11] MEDS: LEVALBUTEROL 1.25 MG/3 ML NEB NEB SCH ×2 (13:09→20:15)
[2021-08-11] MEDS ORDERED: FUROSEMIDE 40 MG/4 ML VIAL IV SCH (18:00)
[2021-08-11] MEDS ORDERED: METHYLPREDNISOLONE 125 MG INJ IV SCH (18:00)
[2021-08-11] MEDS: ATORVASTATIN 40 MG TAB PO SCH (20:44)
[2021-08-11] MEDS: clonazePAM 1 MG TAB PO SCH (20:44)
[2021-08-11] MEDS ORDERED: ENOXAPARIN 60 MG/0.6 ML SQ SCH (21:00)
[2021-08-11] MEDS ORDERED: METHYLPREDNISOLONE 40 MG INJ IV SCH (21:00)
[2021-08-12] MEDS: DILTIAZEM HCL 60 MG TAB PO SCH ×4 (00:15→18:41)
[2021-08-12] MEDS: MEROPENEM/VABORBACTAM 4 GM in NA CHLORIDE 0.9% 250 ML IV SCH ×3 (01:13→17:17)
[2021-08-12] MEDS: LEVALBUTEROL 1.25 MG/3 ML NEB NEB SCH ×2 (02:00→07:50)
[2021-08-12] MEDS: IPRATROPIUM BROM 0.5MG/2.5ML NEB SCH ×4 (02:00→20:20)
[2021-08-12 05:03] LABS: Absolute Lymphocytes (CBC) 0.2 K/uL (0.7-4.9); Hematocrit 32.3 % (36.0-45.0); Lymphocytes % 1.9 % (15.3-44.8); MCV 89.6 fL (80-100); MPV 7.6 fL (7.6-11.3)
[2021-08-12 05:11] VITALS: BMI 22.4
[2021-08-12 05:51] LABS: Albumin 1.9 g/dL (3.4-5.0); Bilirubin Total 0.4 mg/dL (0.2-1.0); Digoxin Level 1.1 ng/mL (0.80-2.00); Potassium 3.4 mmol/L (3.5-5.1)
[2021-08-12] MEDS: KCL 20 MEQ/100 mL IVPB 20 MEQ/100 ML BAG IV SCH ×2 (06:38→09:14)
[2021-08-12] MEDS: ARFORMOTEROL TARTRATE 15 MCG/2 ML VIAL.NEB NEB SCH ×2 (07:50→20:20)
[2021-08-12] MEDS ORDERED: LEVALBUTEROL 1.25 MG/3 ML NEB NEB PRN (08:58)
--- NOTE | 2021-08-12 08:59 | P.PN ---
Subjective Date of Service: 08/12/21 Chief Complaint: Pseudomonas bacteremia Subjective: Improving (Patient is improving was transferred to the ICU she is more alert today no new complaints hemodynamically stable) Review of Systems General: Weakness Respiratory: Shortness of Breath Physical Examination - Vital Signs Temperature: 98.4 F Blood Pressure: 121/79 Pulse: 107 Respirations: 21 Pulse Ox (%): 92 - Physical Exam General: Alert, Oriented x3 Respiratory: Clear to auscultation bilaterally, Expiratory wheezes Cardiovascular: No edema, Regular rate/rhythm - Studies Medications List Reviewed: Yes Assessment And Plan - Current Problems (Diagnosis) (1) COPD (chronic obstructive pulmonary disease) Current Visit: No Status: Acute Plan: Patient has severe obstructive airways disease change to p.o. prednisone vital signs are stable in A. fib changed to p.o. Eliquis bicarbonate is elevated reviewed stopping Lasix CT scan shows minimal bilateral pleural effusion right lower lobe solitary pulmonary nodule most likely malignant Qualifiers: Emphysema type: unspecified (2) Pseudomonal bacteremia Current Visit: Yes Status: Acute Plan: Blood cultures are so far negative (3) Other nonspecific abnormal finding of lung field Current Visit: Yes Status: Acute Plan: RLL SPN 12 mm suspicious for cancer . NEed to f/u as outpatient with PET scan Physician Review: Patient Assessed, Agree with Above Assessment and Plan
[2021-08-12] MEDS: DIGOXIN 0.125 MG TABLET PO SCH (09:14)
[2021-08-12] MEDS: predniSONE 10 MG TAB PO SCH ×2 (09:14→21:00)
[2021-08-12] MEDS: acetaZOLAMIDE 250 MG TAB PO SCH ×2 (09:14→21:00)
[2021-08-12] MEDS: carvediloL 6.25 MG TAB PO SCH ×2 (09:15→21:00)
[2021-08-12] MEDS: NYSTATIN 500,000 UNIT/5 ML UDC PO SCH ×3 (09:15→21:01)
[2021-08-12] MEDS: APIXABAN 5 MG TABLET PO SCH ×2 (09:15→21:00)
[2021-08-12] MEDS: SILVER SULFADIAZINE 1% 50 GM TOP SCH (09:16)
--- NOTE | 2021-08-12 11:31 | RAD REPORT ---
EXAM DESCRIPTION: Josefa Single View08/12/2021 11:20 am CLINICAL HISTORY: Chest pain COMPARISON: August 10, 2021 FINDINGS: Small bilateral pleural effusions. Mild right basilar atelectasis. Patient's known right lower lobe nodule not clearly seen on this exam. Heart is mildly enlarged. PICC line in place
--- NOTE | 2021-08-12 12:18 | P.PN ---
Subjective Date of Service: 08/12/21 Chief Complaint: Pseudomonas bacteremia Subjective: Improving (Improving, more awake today, able to walk with PT and states out of bed Tolerating p.o. well States she feels much better Spouse at bedside discussed with) Patient seen today, tolerating p.o. Still having shortness of breath Complain of insomnia last night Spouse not happy with patient drowsiness and declining function Physical Examination - Vital Signs Temperature: 98.4 F Blood Pressure: 112/64 Pulse: 92 Respirations: 27 Pulse Ox (%): 99 - Studies Medications List Reviewed: Yes Assessment And Plan Physician Review: Patient Assessed, Agree with Above Assessment and Plan Physician Review Additional Text: - Physical Exam General: Alert, frail looking,nasal cannula on BiPAP, intermittently drowsy HEENT: Within normal limits Respiratory: Improved bibasilar crepitus, recurrent moderate wheeze bilaterally today Cardiovascular: Regular rate/rhythm, Normal S1 S2 Gastrointestinal: Normal bowel sounds, No tenderness Neurological: Normal speech, Normal tone, Normal affect Skin: Fading left lower extremity erythema, decreasing level of edema, none over right - Studies CT abdomen with contrast showed 12 mm right lower lobe pulmonary nodule worrisome for malignancy, 3 months follow-up recommended, Right pleural effusion with possible pneumonitis Left perinephric stranding suggestive of pyelonephritis Blood culture and urine culture with Pseudomonas aeruginosa Chest x-ray with mild pulmonary edema Assessment & Plan - Problems (Diagnosis) (1) Cellulitis Current Visit: Yes Status: Acute (2) Sepsis secondary to Pseudomonas associated hypotension Current Visit: Yes Status: Acute (3) COPD (chronic obstructive pulmonary disease) Current Visit: No Status: Acute Qualifiers: Emphysema type: unspecified (4) Atrial fibrillation with rapid ventricular response Current Visit: Yes Status: Acute 5 Pseudomonas UTI with bacteremia 6 left pyelonephritis 7 mild CHF exacerbationlikely diastolic 8 asthenia with weakness 9 COPD with mild acute exacerbation 10 atrial fibrillation with RVRfamily refusing increasing Coreg Plan Clinically improving Lung exam as well as chest x-ray improving Continue steroidsgood response to IV doses yesterday, appreciate pulmonary re-eval today Continue duo nebs Agree with cardiologyDC diuretics for now follow sinus rhythm although intermittent tachycardia, continue low-dose Coreg/digoxin/Cardizem Repeat blood culture negative to date, continue Merrem/gentamicin for total of 14-day course for Pseudomonas pyelonephritis and bacteremia Status post fentanyl scheduled doses with drowsiness 6/21, required Narcan Continue to avoid opioids for now Strict glycemic control, continue insulin regimen Continue blood pressure control Follow PT ability Echo reviewed, mild diastolic CHF noted GI and DVT prophylaxis Dispositionfollow-up plan for SNF for weakness as well as complete IV antibiotics course Time Spent Managing PTS Care (In Minutes): 35
[2021-08-12] MEDS: LEVALBUTEROL 1.25 MG/3 ML NEB NEB PRN (13:45)
--- NOTE | 2021-08-12 14:35 | P.PN ---
Subjective Date of Service: 08/12/21 Chief Complaint: Pseudomonas bacteremia Patient seen and examined at bedside, feeling much better today plan to transfer back to [facility] floor. Review of Systems 10-point ROS is otherwise unremarkable Physical Examination - Vital Signs Temperature: 98.4 F Blood Pressure: 127/71 Pulse: 101 Respirations: 27 Pulse Ox (%): 98 - Studies Laboratory Last Values WBC 6.1 K/uL (4.3-10.9) 08/05/21 10:40 RBC 4.42 M/uL (3.86-4.86) 08/05/21 10:40 Hgb 13.7 g/dL (12.0-15.0) 08/05/21 10:40 Hct 39.9 % (36.0-45.0) 08/05/21 10:40 MCV 90.3 fL (80-100) 08/05/21 10:40 MCH 30.9 pg (27.0-35.0) 08/05/21 10:40 MCHC 34.2 g/dL (32.0-36.0) 08/05/21 10:40 RDW 17.3 % (12.1-15.2) H 08/05/21 10:40 Plt Count 284 K/uL (152-406) 08/05/21 10:40 MPV 7.2 fL (7.6-11.3) L 08/05/21 10:40 Neutrophils % 89.7 % (41.7-73.7) H 08/05/21 10:40 Lymphocytes % 7.5 % (15.3-44.8) L 08/05/21 10:40 Monocytes % 2.2 % (3.3-12.3) L 08/05/21 10:40 Eosinophils % 0.5 % (0-4.4) 08/05/21 10:40 Basophils % 0.1 % (0-1.3) 08/05/21 10:40 Absolute Neutrophils 5.5 K/uL (1.8-8.0) 08/05/21 10:40 Absolute Lymphocytes 0.5 K/uL (0.7-4.9) L 08/05/21 10:40 Absolute Monocytes 0.1 K/uL (0.1-1.3) 08/05/21 10:40 Absolute Eosinophils 0.0 K/uL (0-0.5) 08/05/21 10:40 Absolute Basophils 0.0 K/uL (0-0.5) 08/05/21 10:40 PT 10.3 SECONDS (9.5-12.5) 08/05/21 10:40 INR 0.94 08/05/21 10:40 APTT 21.6 SECONDS (24.3-36.9) L 08/05/21 10:40 Sodium 138 mmol/L (136-145) 08/05/21 10:40 Potassium 4.0 mmol/L (3.5-5.1) 08/05/21 10:40 Chloride 103 mmol/L (98-107) 08/05/21 10:40 Carbon Dioxide 32 mmol/L (21-32) 08/05/21 10:40 Anion Gap 7.0 mEq/L (5.0-15.0) 08/05/21 10:40 BUN 32 mg/dL (7-18) H 08/05/21 10:40 Creatinine 0.82 mg/dL (0.55-1.3) 08/05/21 10:40 Est GFR (CKD-EPI) 78 ml/min (=/>90) L 08/05/21 10:40 Glucose 79 mg/dL (74-106) 08/05/21 10:40 Lactic Acid 1.6 mmol/L (0.4-2.0) 08/05/21 10:40 Calcium 9.0 mg/dL (8.5-10.1) 08/05/21 10:40 Total Bilirubin 0.3 mg/dL (0.2-1.0) 08/05/21 10:40 AST 20 U/L (15-37) 08/05/21 10:40 ALT 36 U/L (12-78) 08/05/21 10:40 Alkaline Phosphatase 37 U/L (45-117) L 08/05/21 10:40 Troponin I High Sens 95.3 pg/mL (<58.9) H* 08/05/21 10:40 NT-Pro-B Natriuret Pep 641 pg/mL (<125) H 08/05/21 10:40 Serum Total Protein 6.3 g/dL (6.4-8.2) L 08/05/21 10:40 Albumin 2.8 g/dL (3.4-5.0) L 08/05/21 10:40 Globulin 3.5 g/dL (2.3-3.5) 08/05/21 10:40 Albumin/Globulin Ratio 0.8 (1.1-1.8) L 08/05/21 10:40 SARS-CoV-2 Rap RNA(RT-PCR) Negative (NEGATIVE) 08/05/21 10:40 Medications List Reviewed: Yes Assessment And Plan - Plan Physical Exam: General: Alert, In no apparent distress HEENT: Atraumatic, Normocephalic. Dried blood noted on lips multiple sores on the buccal mucosa inside of the mouth. Neck: 2+ carotid pulse no bruit Respiratory: Other (Bilateral crackles/rales) Cardiovascular: Regular rate/rhythm, Normal S1 S2 Capillary refill: <2 Seconds Gastrointestinal: Normal bowel sounds, Soft and benign Integumentary: Other (Left lower extremity cellulitis with swelling) Conclusions/Impression: Antibiotics Vabomere: 08/09current Meropenem/gentamicin: Zosyn: Assessment/plan Bacteremia Blood cultures obtained on 08/05 grew multidrug-resistant Pseudomonasarginosa. Zosyn discontinued, patient placed on meropenem gentamicin combination. This was discontinued on 08/09 and patient was started on Vabomere. Repeat blood cultures negative. Patient will need antibiotics for at least 2 weeks. -Urine culture also grew multidrug-resistant Pseudomonas, this is likely source of infection -Right arm PICC line placed on 08/09 Left lower extremity cellulitis Continue to keep leg elevated Continue current antibiotics Patient does have wound on her upper inner thigh however it is scabbed over and is healing. This wound is from when her dog jumped up and scratched on her. Possible source of the cellulitis infection could be Pasteurella species, is covered with Vabomere. -Blister forming on top of left foot: Apply Silvadene ointment to area. Venous Doppler negative for DVT Pneumonia -Still has significant crackles/rales on auscultation. Currently on 3L of oxygen via nasal cannula with intermittent BiPAP Most recent chest CT obtained on 08/10 showed small effusions with underlying atelectasis versus mild pneumonia, emphysema changes, and a 16mm right lower lobe pulmonary nodule -continue scheduled nebulized treatments and home trilogy. -Continue current antibiotic -Sputum culture pending Pulmonary nodule CT chest showed 16mm right lower lobe pulmonary nodule. Cannot rule out neoplasm. Recommend PET scan/biopsy. Oral thrush Continue Magic mouthwash and nystatin oral solution HFpEF -Medical management per primary team Leukocytosis -Resolved, patient afebrile Plan of care discussed Dr. Richardson Thank for consultation Physician Review: Patient Assessed, Agree with Above Assessment and Plan
--- NOTE | 2021-08-12 15:41 | PN ---
Date of Progress Note: 08/12/2021 I initially saw Mrs. Lynne on 08/06/2021 because of atrial fibrillation and elevated troponin. This is a patient, who has a history of COPD and hypertension, came in with sepsis, pneumonia, and dyspne a on exertion, was found to have new onset atrial fibrillation. She has been in and out of atrial fi brillation since then. She had an echocardiogram that showed an ejection fraction of 79% with some d iastolic dysfunction. I was asked to see her just followup because of her atrial fibrilla tion. She today is in normal sinus rhythm at a rate of about 80. She has a 98% room air saturation. Her CO2 on her electrolytes is elevated at 41. Her potassium is 3.4. Her creatinine remained norm al at 0.62. She is on Eliquis. She is on inhalers, Lipitor. She is on digoxin daily. She is on di ltiazem. She is on Lovenox. She is on Lasix, which I think needs to be held. She continues to be o n steroids. She is also on Diamox, Coreg, clonazepam, and prednisone. I personally agree with all h er present regimen. I do not think she needs to be on Eliquis and Lovenox at the same time. I think Eliquis is plenty. I agree with her regimen as far as her atrial fibrillation is concerned. She is not a candidate for amiodarone. Considering her poor pulmonary status at this point, I t hink rate control with digoxin and beta-mickie is a way to go. Again today, she has a normal rhythm . I will continue her Eliquis, continue her carvedilol. We can increase her carvedilol as needed or increase her diltiazem as needed. She can also get some IV metoprolol on an as-needed basis. No danielle foreman in therapy. We will see her in the office as an outpatient. ASHER Voice ID: [id number] Report ID: [id number]
[2021-08-12 17:58] LABS: Magnesium 2.3 mg/dL (1.8-2.4); Phosphorus 1.9 mg/dL (2.5-4.9); Potassium 3.5 mmol/L (3.5-5.1)
[2021-08-12] MEDS: clonazePAM 1 MG TAB PO SCH (21:01)
[2021-08-12] MEDS: ATORVASTATIN 40 MG TAB PO SCH (21:01)
[2021-08-12] MEDS: ACETAMINOPHEN 500 MG TAB PO PRN (21:07)
[2021-08-12 23:18] LABS: Urine Appearance Clear (Clear); Urine Bilirubin Negative (Negative); Urine Blood Negative (Negative); Urine Color Yellow (Yellow); Urine Glucose Negative (Negative); Urine Protein 2+ (Negative); Urine Urobilinogen 0.2 mg/dL (0.2-1.0); Urine pH >=9.0 (5.0-7.0)
[2021-08-12 23:41] LABS: Urine Bacteria 20-50 /HPF (<20); Urine Mucus 1+ /HPF (NONE SEEN); Urine RBC <5 /HPF (NONE SEEN)
[2021-08-13] MEDS: DILTIAZEM HCL 60 MG TAB PO SCH ×4 (00:15→17:32)
[2021-08-13] MEDS: MEROPENEM/VABORBACTAM 4 GM in NA CHLORIDE 0.9% 250 ML IV SCH ×3 (00:17→17:32)
[2021-08-13] MEDS: IPRATROPIUM BROM 0.5MG/2.5ML NEB SCH ×4 (01:40→20:25)
[2021-08-13 05:15] LABS: Albumin 1.9 g/dL (3.4-5.0); Bilirubin Total 0.4 mg/dL (0.2-1.0); Potassium 3.7 mmol/L (3.5-5.1); Protein, Total 5.6 g/dL (6.4-8.2)
[2021-08-13] MEDS: ARFORMOTEROL TARTRATE 15 MCG/2 ML VIAL.NEB NEB SCH ×2 (07:46→20:25)
[2021-08-13] MEDS ORDERED: POTASSIUM CL SA 10 MEQ TAB PO ONE (09:00)
[2021-08-13] MEDS: DIGOXIN 0.125 MG TABLET PO SCH (11:04)
[2021-08-13] MEDS: carvediloL 6.25 MG TAB PO SCH ×2 (11:05→21:07)
[2021-08-13] MEDS: acetaZOLAMIDE 250 MG TAB PO SCH ×2 (11:05→21:05)
[2021-08-13] MEDS: APIXABAN 5 MG TABLET PO SCH ×2 (11:05→21:07)
[2021-08-13] MEDS: predniSONE 10 MG TAB PO SCH ×2 (11:07→21:07)
[2021-08-13] MEDS: NYSTATIN 500,000 UNIT/5 ML UDC PO SCH ×3 (11:07→21:05)
[2021-08-13] MEDS: SILVER SULFADIAZINE 1% 50 GM TOP SCH (11:08)
--- NOTE | 2021-08-13 12:43 | P.PN ---
Subjective Date of Service: 08/13/21 Chief Complaint: Pseudomonas bacteremia Patient seen and examined at bedside, on 2 L of oxygen via nasal cannula. WBC within normal range, kidney and liver function stable. Afebrile and hemodynamically stable. Review of Systems 10-point ROS is otherwise unremarkable Physical Examination - Vital Signs Temperature: 97.8 F Blood Pressure: 122/72 Pulse: 72 Respirations: 20 Pulse Ox (%): 98 - Studies Laboratory Last Values WBC 6.1 K/uL (4.3-10.9) 08/05/21 10:40 RBC 4.42 M/uL (3.86-4.86) 08/05/21 10:40 Hgb 13.7 g/dL (12.0-15.0) 08/05/21 10:40 Hct 39.9 % (36.0-45.0) 08/05/21 10:40 MCV 90.3 fL (80-100) 08/05/21 10:40 MCH 30.9 pg (27.0-35.0) 08/05/21 10:40 MCHC 34.2 g/dL (32.0-36.0) 08/05/21 10:40 RDW 17.3 % (12.1-15.2) H 08/05/21 10:40 Plt Count 284 K/uL (152-406) 08/05/21 10:40 MPV 7.2 fL (7.6-11.3) L 08/05/21 10:40 Neutrophils % 89.7 % (41.7-73.7) H 08/05/21 10:40 Lymphocytes % 7.5 % (15.3-44.8) L 08/05/21 10:40 Monocytes % 2.2 % (3.3-12.3) L 08/05/21 10:40 Eosinophils % 0.5 % (0-4.4) 08/05/21 10:40 Basophils % 0.1 % (0-1.3) 08/05/21 10:40 Absolute Neutrophils 5.5 K/uL (1.8-8.0) 08/05/21 10:40 Absolute Lymphocytes 0.5 K/uL (0.7-4.9) L 08/05/21 10:40 Absolute Monocytes 0.1 K/uL (0.1-1.3) 08/05/21 10:40 Absolute Eosinophils 0.0 K/uL (0-0.5) 08/05/21 10:40 Absolute Basophils 0.0 K/uL (0-0.5) 08/05/21 10:40 PT 10.3 SECONDS (9.5-12.5) 08/05/21 10:40 INR 0.94 08/05/21 10:40 APTT 21.6 SECONDS (24.3-36.9) L 08/05/21 10:40 Sodium 138 mmol/L (136-145) 08/05/21 10:40 Potassium 4.0 mmol/L (3.5-5.1) 08/05/21 10:40 Chloride 103 mmol/L (98-107) 08/05/21 10:40 Carbon Dioxide 32 mmol/L (21-32) 08/05/21 10:40 Anion Gap 7.0 mEq/L (5.0-15.0) 08/05/21 10:40 BUN 32 mg/dL (7-18) H 08/05/21 10:40 Creatinine 0.82 mg/dL (0.55-1.3) 08/05/21 10:40 Est GFR (CKD-EPI) 78 ml/min (=/>90) L 08/05/21 10:40 Glucose 79 mg/dL (74-106) 08/05/21 10:40 Lactic Acid 1.6 mmol/L (0.4-2.0) 08/05/21 10:40 Calcium 9.0 mg/dL (8.5-10.1) 08/05/21 10:40 Total Bilirubin 0.3 mg/dL (0.2-1.0) 08/05/21 10:40 AST 20 U/L (15-37) 08/05/21 10:40 ALT 36 U/L (12-78) 08/05/21 10:40 Alkaline Phosphatase 37 U/L (45-117) L 08/05/21 10:40 Troponin I High Sens 95.3 pg/mL (<58.9) H* 08/05/21 10:40 NT-Pro-B Natriuret Pep 641 pg/mL (<125) H 08/05/21 10:40 Serum Total Protein 6.3 g/dL (6.4-8.2) L 08/05/21 10:40 Albumin 2.8 g/dL (3.4-5.0) L 08/05/21 10:40 Globulin 3.5 g/dL (2.3-3.5) 08/05/21 10:40 Albumin/Globulin Ratio 0.8 (1.1-1.8) L 08/05/21 10:40 SARS-CoV-2 Rap RNA(RT-PCR) Negative (NEGATIVE) 08/05/21 10:40 Medications List Reviewed: Yes Assessment And Plan - Plan Physical Exam: General: Alert, In no apparent distress HEENT: Atraumatic, Normocephalic. Dried blood noted on lips multiple sores on the buccal mucosa inside of the mouth. Neck: 2+ carotid pulse no bruit Respiratory: Other (Bilateral crackles/rales) Cardiovascular: Regular rate/rhythm, Normal S1 S2 Capillary refill: <2 Seconds Gastrointestinal: Normal bowel sounds, Soft and benign Integumentary: Other (Left lower extremity cellulitis with swelling) Conclusions/Impression: Antibiotics Vabomere: 08/09current Meropenem/gentamicin: Zosyn: Assessment/plan Bacteremia Blood cultures obtained on 08/05 grew multidrug-resistant Pseudomonasarginosa. Zosyn discontinued, patient placed on meropenem gentamicin combination. This was discontinued on 08/09 and patient was started on Vabomere. Repeat blood cultures negative. Patient will need antibiotics for at least 2 weeks. -Urine culture also grew multidrug-resistant Pseudomonas, this is likely source of infection -Right arm PICC line placed on 08/09 Left lower extremity cellulitis Continue to keep leg elevated Continue current antibiotics Patient does have wound on her upper inner thigh however it is scabbed over and is healing. This wound is from when her dog jumped up and scratched on her. Possible source of the cellulitis infection could be Pasteurella species, is covered with Vabomere. -Blister forming on top of left foot: Apply Silvadene ointment to area. Venous Doppler negative for DVT Pneumonia -Still has significant crackles/rales on auscultation. Currently on 3L of oxygen via nasal cannula with intermittent BiPAP Most recent chest CT obtained on 08/10 showed small effusions with underlying atelectasis versus mild pneumonia, emphysema changes, and a 16mm right lower lobe pulmonary nodule -continue scheduled nebulized treatments and home trilogy. -Continue current antibiotic -Sputum culture pending Pulmonary nodule CT chest showed 16mm right lower lobe pulmonary nodule. Cannot rule out neoplasm. Recommend PET scan/biopsy. Oral thrush Continue Magic mouthwash and nystatin oral solution HFpEF -Medical management per primary team Leukocytosis -Resolved, patient afebrile Plan of care discussed Dr. Richardson Thank for consultation Physician Review: Patient Assessed, Agree with Above Assessment and Plan
--- NOTE | 2021-08-13 12:58 | P.PN ---
Subjective Date of Service: 08/13/21 Chief Complaint: Pseudomonas bacteremia Subjective: No new changes (feels better but still mild wheezing this am s/p stertoid reduced yesterday) Patient seen today, tolerating p.o. Still having shortness of breath Complain of insomnia last night Spouse not happy with patient drowsiness and declining function Physical Examination - Vital Signs Temperature: 97.8 F Blood Pressure: 122/72 Pulse: 72 Respirations: 20 Pulse Ox (%): 98 - Studies Medications List Reviewed: Yes Assessment And Plan Physician Review: Patient Assessed, Agree with Above Assessment and Plan Physician Review Additional Text: - Physical Exam General: Alert, frail looking,nasal cannula on BiPAP, intermittently drowsy HEENT: Within normal limits Respiratory: Improved bibasilar crepitus, recurrent moderate wheeze bilaterally today Cardiovascular: Regular rate/rhythm, Normal S1 S2 Gastrointestinal: Normal bowel sounds, No tenderness Neurological: Normal speech, Normal tone, Normal affect Skin: Fading left lower extremity erythema, decreasing level of edema, none over right - Studies CT abdomen with contrast showed 12 mm right lower lobe pulmonary nodule worrisome for malignancy, 3 months follow-up recommended, Right pleural effusion with possible pneumonitis Left perinephric stranding suggestive of pyelonephritis Blood culture and urine culture with Pseudomonas aeruginosa Chest x-ray with mild pulmonary edema Assessment & Plan - Problems (Diagnosis) (1) Cellulitis Current Visit: Yes Status: Acute (2) Sepsis secondary to Pseudomonas associated hypotension Current Visit: Yes Status: Acute (3) COPD (chronic obstructive pulmonary disease) Current Visit: No Status: Acute Qualifiers: Emphysema type: unspecified (4) Atrial fibrillation with rapid ventricular response Current Visit: Yes Status: Acute #Left leg cellulitis #COPD exacerbation #Pseudomonas UTI with [id number], on vabomere # left pyelonephritis # mild CHF exacerbationlikely diastolic # asthenia with weakness #atrial fibrillation with RVRfamily refusing increasing Coreg, on digoxin/Coreg now #Left lobe nodule Plan Continue antibiotics clinically improving Cellulitis area clearing Continue antibiotics for total of 14 dayssince Developing new wheezing again but will defer to pulmonary to consider adjusting steroids Off diuretics now Continue duo nebs now in sinus rhythm although intermittent tachycardia, continue low-dose Coreg/digoxin/Cardizem Repeat blood culture negative to date, continue Merrem/gentamicin for total of 14-day course for Pseudomonas pyelonephritis and bacteremia Status post fentanyl scheduled doses with drowsiness 08/10, required Narcan Continue to avoid opioids for now Strict glycemic control, continue insulin regimen Continue blood pressure control Echo reviewed, mild diastolic CHF noted GI and DVT prophylaxis Dispositionfollow-up plan for SNF for weakness as well as complete IV antibiotics course
[2021-08-13] MEDS: ONDANSETRON 4 MG/2 ML VIAL IV PRN (20:15)
[2021-08-13] MEDS: ATORVASTATIN 40 MG TAB PO SCH (21:07)
[2021-08-13] MEDS: clonazePAM 1 MG TAB PO PRN (21:13)
[2021-08-14] MEDS: MEROPENEM/VABORBACTAM 4 GM in NA CHLORIDE 0.9% 250 ML IV SCH ×3 (01:07→17:30)
[2021-08-14] MEDS: DILTIAZEM HCL 60 MG TAB PO SCH ×4 (01:08→17:31)
[2021-08-14] MEDS: IPRATROPIUM BROM 0.5MG/2.5ML NEB SCH ×4 (01:14→19:47)
[2021-08-14] MEDS: ARFORMOTEROL TARTRATE 15 MCG/2 ML VIAL.NEB NEB SCH ×2 (07:59→19:47)
[2021-08-14] MEDS: predniSONE 10 MG TAB PO SCH ×2 (08:52→21:35)
[2021-08-14] MEDS: NYSTATIN 500,000 UNIT/5 ML UDC PO SCH ×3 (08:52→21:35)
[2021-08-14] MEDS: DIGOXIN 0.125 MG TABLET PO SCH (08:56)
[2021-08-14] MEDS: carvediloL 6.25 MG TAB PO SCH ×2 (08:56→21:36)
[2021-08-14] MEDS: APIXABAN 5 MG TABLET PO SCH ×2 (08:59→21:35)
[2021-08-14] MEDS: acetaZOLAMIDE 250 MG TAB PO SCH ×2 (08:59→21:36)
[2021-08-14] MEDS ORDERED: POTASSIUM CL SA 10 MEQ TAB PO ONE (09:00)
[2021-08-14] MEDS: SILVER SULFADIAZINE 1% 50 GM TOP SCH (09:00)
--- NOTE | 2021-08-14 11:38 | P.PN ---
Subjective Date of Service: 08/14/21 Chief Complaint: Pseudomonas bacteremia Subjective: No new changes, Improving Physical Examination - Vital Signs Temperature: 97.8 F Blood Pressure: 127/79 Pulse: 96 Respirations: 18 Pulse Ox (%): 100 - Physical Exam General: Mild distress HEENT: Atraumatic, Normocephalic Neck: Supple Respiratory: Diminished Cardiovascular: Regular rate/rhythm, Normal S1 S2 Gastrointestinal: Soft and benign Musculoskeletal: No swelling - Studies Medications List Reviewed: Yes Assessment And Plan - Plan #Left leg cellulitis #COPD exacerbation #Pseudomonas UTI with [id number], on vabomere # left pyelonephritis # mild CHF exacerbationlikely diastolic # asthenia with weakness #atrial fibrillation with RVRfamily refusing increasing Coreg, on digoxin/Coreg now #Left lobe nodule Plan Continue antibiotics clinically improving Cellulitis area clearing. Continue antibiotics for total of 14 completed days. Pulm following for respiratory symptoms management. Continue duo nebs now in sinus rhythm although intermittent tachycardia, continue low-dose Coreg/digoxin/Cardizem Repeat blood culture negative to date, continue Merrem/gentamicin for total of 14-day course for Pseudomonas pyelonephritis and bacteremia Strict glycemic control, continue insulin regimen Continue blood pressure control Echo reviewed, mild diastolic CHF noted GI and DVT prophylaxis Dispositionfollow-up plan for SNF for weakness as well as complete IV antibiotics course. Physician Review: Patient Assessed, Agree with Above Assessment and Plan
[2021-08-14] MEDS: ATORVASTATIN 40 MG TAB PO SCH (21:36)
[2021-08-14] MEDS: ONDANSETRON 4 MG/2 ML VIAL IV PRN (21:48)
[2021-08-15] MEDS: DILTIAZEM HCL 60 MG TAB PO SCH ×4 (00:09→16:58)
[2021-08-15] MEDS: MEROPENEM/VABORBACTAM 4 GM in NA CHLORIDE 0.9% 250 ML IV SCH ×3 (00:26→16:55)
[2021-08-15] MEDS: IPRATROPIUM BROM 0.5MG/2.5ML NEB SCH ×4 (00:38→19:50)
[2021-08-15] MEDS: LEVALBUTEROL 1.25 MG/3 ML NEB NEB PRN (00:38)
[2021-08-15 04:12] LABS: Phosphorus 3.2 mg/dL (2.5-4.9); Potassium 4.4 mmol/L (3.5-5.1)
[2021-08-15] MEDS: DIGOXIN 0.125 MG TABLET PO SCH (08:27)
[2021-08-15] MEDS: acetaZOLAMIDE 250 MG TAB PO SCH ×2 (08:27→21:58)
[2021-08-15] MEDS: NYSTATIN 500,000 UNIT/5 ML UDC PO SCH ×3 (08:27→21:59)
[2021-08-15] MEDS: predniSONE 10 MG TAB PO SCH ×2 (08:28→21:58)
[2021-08-15] MEDS: carvediloL 6.25 MG TAB PO SCH ×2 (08:28→22:31)
[2021-08-15] MEDS: APIXABAN 5 MG TABLET PO SCH ×2 (08:28→21:57)
--- NOTE | 2021-08-15 08:58 | P.PN ---
Subjective Date of Service: 08/15/21 Chief Complaint: Pseudomonas bacteremia Subjective: No new changes Physical Examination - Vital Signs Temperature: 97 F Blood Pressure: 120/58 Pulse: 80 Respirations: 18 Pulse Ox (%): 100 - Physical Exam General: Alert, Oriented x3 HEENT: Atraumatic, Normocephalic Neck: Supple Respiratory: Normal air movement Cardiovascular: Regular rate/rhythm, Normal S1 S2 Gastrointestinal: Soft and benign Musculoskeletal: No swelling Neurological: Normal speech - Studies Medications List Reviewed: Yes Assessment And Plan - Plan #Left leg cellulitis #COPD exacerbation #Pseudomonas UTI with [id number], on vabomere # left pyelonephritis # mild CHF exacerbationlikely diastolic # asthenia with weakness #atrial fibrillation with RVRfamily refusing increasing Coreg, on digoxin/Coreg now #Left lobe nodule Plan Clinically improving, we will continue present care. Cellulitis area clearing. Continue antibiotics for total of 14 completed days. Pulm following for respiratory symptoms management. Continue duonebs now in sinus rhythm although intermittent tachycardia, continue low-dose Coreg/digoxin/Cardizem Repeat blood culture negative to date, continue Merrem/gentamicin for total of 14-day course for Pseudomonas pyelonephritis and bacteremia Strict glycemic control, continue insulin regimen Continue blood pressure control Echo reviewed, mild diastolic CHF noted GI and DVT prophylaxis Dispositionfollow-up plan for SNF for weakness as well as complete IV antibiotics course. Physician Review: Patient Assessed, Agree with Above Assessment and Plan
[2021-08-15] MEDS: SILVER SULFADIAZINE 1% 50 GM TOP SCH (09:00)
[2021-08-15] MEDS: ARFORMOTEROL TARTRATE 15 MCG/2 ML VIAL.NEB NEB SCH ×2 (09:21→19:50)
[2021-08-15] MEDS: ATORVASTATIN 40 MG TAB PO SCH (21:58)
[2021-08-15] MEDS: BENZONATATE 100 MG CAP PO PRN (22:32)
[2021-08-16] MEDS: LEVALBUTEROL 1.25 MG/3 ML NEB NEB PRN ×2 (00:15→07:48)
[2021-08-16] MEDS: IPRATROPIUM BROM 0.5MG/2.5ML NEB SCH ×4 (00:15→20:45)
[2021-08-16] MEDS: MEROPENEM/VABORBACTAM 4 GM in NA CHLORIDE 0.9% 250 ML IV SCH ×3 (00:42→17:04)
[2021-08-16] MEDS: DILTIAZEM HCL 60 MG TAB PO SCH ×4 (05:46→17:04)
[2021-08-16] MEDS: ARFORMOTEROL TARTRATE 15 MCG/2 ML VIAL.NEB NEB SCH ×2 (07:48→20:45)
[2021-08-16] MEDS: acetaZOLAMIDE 250 MG TAB PO SCH ×2 (08:15→21:55)
[2021-08-16] MEDS: predniSONE 10 MG TAB PO SCH ×2 (08:15→21:56)
[2021-08-16] MEDS: APIXABAN 5 MG TABLET PO SCH ×2 (08:15→21:55)
[2021-08-16] MEDS: NYSTATIN 500,000 UNIT/5 ML UDC PO SCH ×3 (08:15→21:55)
[2021-08-16] MEDS: DIGOXIN 0.125 MG TABLET PO SCH (08:16)
[2021-08-16] MEDS: carvediloL 6.25 MG TAB PO SCH ×2 (08:16→21:55)
[2021-08-16] MEDS: SILVER SULFADIAZINE 1% 50 GM TOP SCH (09:02)
[2021-08-16] MEDS ORDERED: METHYLPREDNISOLONE 125 MG INJ IV ONE (17:06)
--- NOTE | 2021-08-16 17:41 | RAD REPORT ---
EXAM DESCRIPTION: RAD - Chest Single View - 08/16/2021 5:23 pm CLINICAL HISTORY: COUGH CONGESTION COMPARISON: Portable August 12 TECHNIQUE: AP portable chest image was obtained 08/16/2021 5:23 pm . FINDINGS: Chronic interstitial lung pattern is present similar to comparison. No new mass or consoli dation. No new or progressive pulmonary edema pattern. Right-sided PICC line is unchanged in positioning. Heart and vasculature are normal. No measurable pleural effusion and no pneumothorax. No acute bony abnormality seen. No acute aortic findings suspected. IMPRESSION: No acute cardiopulmonary process. Stable chest examination from August 12
--- NOTE | 2021-08-16 17:54 | P.PN ---
Subjective Date of Service: 08/16/21 Chief Complaint: Pseudomonas bacteremia Patient seen and examined at bedside, feeling well. Review of Systems 10-point ROS is otherwise unremarkable Physical Examination - Vital Signs Temperature: 97.1 F Blood Pressure: 146/58 Pulse: 103 Respirations: 24 Pulse Ox (%): 100 - Studies Medications List Reviewed: Yes Assessment And Plan - Plan Physical Exam: General: Alert, In no apparent distress HEENT: Atraumatic, Normocephalic. Dried blood noted on lips multiple sores on the buccal mucosa inside of the mouth. Neck: 2+ carotid pulse no bruit Respiratory: Other (Bilateral crackles/rales) Cardiovascular: Regular rate/rhythm, Normal S1 S2 Capillary refill: <2 Seconds Gastrointestinal: Normal bowel sounds, Soft and benign Integumentary: Other (Left lower extremity cellulitis with swelling) Conclusions/Impression: Antibiotics Vabomere: 08/09current Meropenem/gentamicin: Zosyn: Assessment/plan Bacteremia Blood cultures obtained on 08/05 grew multidrug-resistant Pseudomonasarginosa. Zosyn discontinued, patient placed on meropenem gentamicin combination. This was discontinued on 08/09 and patient was started on Vabomere. Repeat blood cultures negative. Patient will need antibiotics for at least 2 weeks. -Urine culture also grew multidrug-resistant Pseudomonas, this is likely source of infection -Right arm PICC line placed on 08/09 Left lower extremity cellulitis Continue to keep leg elevated Continue current antibiotics Patient does have wound on her upper inner thigh however it is scabbed over and is healing. This wound is from when her dog jumped up and scratched on her. Possible source of the cellulitis infection could be Pasteurella species, is covered with Vabomere. -Blister forming on top of left foot: Apply Silvadene ointment to area. Venous Doppler negative for DVT Pneumonia -Still has significant crackles/rales on auscultation. Currently on 3L of oxygen via nasal cannula with intermittent BiPAP Most recent chest CT obtained on 08/10 showed small effusions with underlying atelectasis versus mild pneumonia, emphysema changes, and a 16mm right lower lobe pulmonary nodule -continue scheduled nebulized treatments and home trilogy. -Continue current antibiotic -Sputum culture pending Pulmonary nodule CT chest showed 16mm right lower lobe pulmonary nodule. Cannot rule out neoplasm. Recommend PET scan/biopsy. Oral thrush Continue Magic mouthwash and nystatin oral solution HFpEF -Medical management per primary team Leukocytosis -Resolved, patient afebrile Plan of care discussed Dr. Richardson Thank for consultation Physician Review: Patient Assessed, Agree with Above Assessment and Plan
[2021-08-16] MEDS: ENSURE ENLIVE 237 ML CAN PO SCH (21:55)
[2021-08-16] MEDS: ATORVASTATIN 40 MG TAB PO SCH (21:55)
--- NOTE | 2021-08-16 23:24 | P.PN ---
Date of Service: 08/16/21 Subjective Subjective: patient appears to be little tachypneic today. states that is related to her sliding down the bed. He is very upset that he does not feel physical therapy is working with her hard enough. He believes that should be really pushing her more. However, with her being so short of breath it may not be safe and we really discuss that with the . She is very tearful when she is talking in front of him. He also had a meeting with our Resource Management Specialist as well as the nursing unit clerk with the family. will try to communicate more effectively with the family regarding her future plan of care which may include senior care facility depending on how well she is doing. Review of Systems 10-point ROS is otherwise unremarkable Physical Examination - Vital Signs Reviewed - Physical Exam General: Alert, In no apparent distress, Oriented x3 HEENT: Within normal limits Respiratory: Diminished breath sounds with mild expiratory wheezing Cardiovascular: Regular rate/rhythm, Normal S1 S2 Gastrointestinal: Normal bowel sounds, No tenderness Neurological: Normal speech, Normal tone, Normal affect Skin: Left lower extremity with some erythema to the caro; improved Assessment & Plan - Problems (Diagnosis) (1) Cellulitis Current Visit: Yes Status: Acute (2) Sepsis secondary to Pseudomonas associated hypotension Current Visit: Yes Status: Acute (3) COPD (chronic obstructive pulmonary disease) Current Visit: No Status: Acute Qualifiers: Emphysema type: unspecified (4) Atrial fibrillation with rapid ventricular response Current Visit: Yes Status: Acute - Plan Continue with plan of care as mentioned below: 1. Continue with IV antibiotic; 2. Continue with local wound care to the left leg 3. strict blood pressure and blood sugar control 4. Hep-Lock IV 5. Monitor CBC and renal function closely 6. Strict blood sugar monitoring 7. Pain control 8. Cardiology consultation appreciated 9. Infectious Disease consultation appreciated 10. Pulmonary consultation appreciated 11. echocardiogram reviewed; mild diastolic heart failure 12. medication for rate control & anticoagulation 13. Physical therapy may need to become more aggressive depending on how patient is doing 14. Flutter valve 15. GI and DVT prophylaxis
[2021-08-17] MEDS: DILTIAZEM HCL 60 MG TAB PO SCH ×4 (00:41→17:44)
[2021-08-17] MEDS: MEROPENEM/VABORBACTAM 4 GM in NA CHLORIDE 0.9% 250 ML IV SCH ×3 (00:42→17:10)
[2021-08-17] MEDS: IPRATROPIUM BROM 0.5MG/2.5ML NEB SCH ×4 (01:43→19:40)
[2021-08-17 04:16] LABS: Absolute Lymphocytes (CBC) 0.2 K/uL (0.7-4.9); Hematocrit 25.2 % (36.0-45.0); Lymphocytes % 1.8 % (15.3-44.8); MCV 91.9 fL (80-100); MPV 8.2 fL (7.6-11.3); RBC Red Blood Cell Count 2.74 M/uL (3.86-4.86)
[2021-08-17 04:35] LABS: Albumin 1.9 g/dL (3.4-5.0); Bilirubin Total 0.2 mg/dL (0.2-1.0); Magnesium 2.1 mg/dL (1.8-2.4); Potassium 3.8 mmol/L (3.5-5.1)
[2021-08-17 05:16] LABS: Basophilic Stippling 1+; Blood Morphology Comment NOTED (NOT SEEN); Platelet Estimate ADEQ
[2021-08-17] MEDS: ARFORMOTEROL TARTRATE 15 MCG/2 ML VIAL.NEB NEB SCH ×2 (08:44→19:40)
[2021-08-17] MEDS: ENSURE ENLIVE 237 ML CAN PO SCH ×2 (09:00→21:00)
[2021-08-17] MEDS: SILVER SULFADIAZINE 1% 50 GM TOP SCH (09:00)
[2021-08-17] MEDS ORDERED: POTASSIUM CL SA 10 MEQ TAB PO ONE (09:00)
[2021-08-17] MEDS: carvediloL 6.25 MG TAB PO SCH ×2 (09:26→22:05)
[2021-08-17] MEDS: acetaZOLAMIDE 250 MG TAB PO SCH ×2 (09:26→22:06)
[2021-08-17] MEDS: DIGOXIN 0.125 MG TABLET PO SCH (09:27)
[2021-08-17] MEDS: APIXABAN 5 MG TABLET PO SCH ×2 (09:27→22:06)
[2021-08-17] MEDS: predniSONE 10 MG TAB PO SCH (09:30)
[2021-08-17] MEDS: NYSTATIN 500,000 UNIT/5 ML UDC PO SCH ×2 (09:30→13:43)
--- NOTE | 2021-08-17 16:03 | P.PN ---
Subjective Date of Service: 08/17/21 Chief Complaint: Pseudomonas bacteremia Patient seen and examined at bedside, repeat CXR showed resolution of PNA. Review of Systems 10-point ROS is otherwise unremarkable Physical Examination - Vital Signs Temperature: 97.2 F Blood Pressure: 107/68 Pulse: 95 Respirations: 24 Pulse Ox (%): 99 - Studies Laboratory Last Values WBC 6.1 K/uL (4.3-10.9) 08/05/21 10:40 RBC 4.42 M/uL (3.86-4.86) 08/05/21 10:40 Hgb 13.7 g/dL (12.0-15.0) 08/05/21 10:40 Hct 39.9 % (36.0-45.0) 08/05/21 10:40 MCV 90.3 fL (80-100) 08/05/21 10:40 MCH 30.9 pg (27.0-35.0) 08/05/21 10:40 MCHC 34.2 g/dL (32.0-36.0) 08/05/21 10:40 RDW 17.3 % (12.1-15.2) H 08/05/21 10:40 Plt Count 284 K/uL (152-406) 08/05/21 10:40 MPV 7.2 fL (7.6-11.3) L 08/05/21 10:40 Neutrophils % 89.7 % (41.7-73.7) H 08/05/21 10:40 Lymphocytes % 7.5 % (15.3-44.8) L 08/05/21 10:40 Monocytes % 2.2 % (3.3-12.3) L 08/05/21 10:40 Eosinophils % 0.5 % (0-4.4) 08/05/21 10:40 Basophils % 0.1 % (0-1.3) 08/05/21 10:40 Absolute Neutrophils 5.5 K/uL (1.8-8.0) 08/05/21 10:40 Absolute Lymphocytes 0.5 K/uL (0.7-4.9) L 08/05/21 10:40 Absolute Monocytes 0.1 K/uL (0.1-1.3) 08/05/21 10:40 Absolute Eosinophils 0.0 K/uL (0-0.5) 08/05/21 10:40 Absolute Basophils 0.0 K/uL (0-0.5) 08/05/21 10:40 PT 10.3 SECONDS (9.5-12.5) 08/05/21 10:40 INR 0.94 08/05/21 10:40 APTT 21.6 SECONDS (24.3-36.9) L 08/05/21 10:40 Sodium 138 mmol/L (136-145) 08/05/21 10:40 Potassium 4.0 mmol/L (3.5-5.1) 08/05/21 10:40 Chloride 103 mmol/L (98-107) 08/05/21 10:40 Carbon Dioxide 32 mmol/L (21-32) 08/05/21 10:40 Anion Gap 7.0 mEq/L (5.0-15.0) 08/05/21 10:40 BUN 32 mg/dL (7-18) H 08/05/21 10:40 Creatinine 0.82 mg/dL (0.55-1.3) 08/05/21 10:40 Est GFR (CKD-EPI) 78 ml/min (=/>90) L 08/05/21 10:40 Glucose 79 mg/dL (74-106) 08/05/21 10:40 Lactic Acid 1.6 mmol/L (0.4-2.0) 08/05/21 10:40 Calcium 9.0 mg/dL (8.5-10.1) 08/05/21 10:40 Total Bilirubin 0.3 mg/dL (0.2-1.0) 08/05/21 10:40 AST 20 U/L (15-37) 08/05/21 10:40 ALT 36 U/L (12-78) 08/05/21 10:40 Alkaline Phosphatase 37 U/L (45-117) L 08/05/21 10:40 Troponin I High Sens 95.3 pg/mL (<58.9) H* 08/05/21 10:40 NT-Pro-B Natriuret Pep 641 pg/mL (<125) H 08/05/21 10:40 Serum Total Protein 6.3 g/dL (6.4-8.2) L 08/05/21 10:40 Albumin 2.8 g/dL (3.4-5.0) L 08/05/21 10:40 Globulin 3.5 g/dL (2.3-3.5) 08/05/21 10:40 Albumin/Globulin Ratio 0.8 (1.1-1.8) L 08/05/21 10:40 SARS-CoV-2 Rap RNA(RT-PCR) Negative (NEGATIVE) 08/05/21 10:40 Medications List Reviewed: Yes Assessment And Plan - Plan Physical Exam: General: Alert, In no apparent distress HEENT: Atraumatic, Normocephalic. Dried blood noted on lips multiple sores on the buccal mucosa inside of the mouth. Neck: 2+ carotid pulse no bruit Respiratory: Other (Bilateral crackles/rales) Cardiovascular: Regular rate/rhythm, Normal S1 S2 Capillary refill: <2 Seconds Gastrointestinal: Normal bowel sounds, Soft and benign Integumentary: Other (Left lower extremity cellulitis with swelling) Conclusions/Impression: Antibiotics Vabomere: 08/09current Meropenem/gentamicin: Zosyn: Assessment/plan Bacteremia Blood cultures obtained on 08/05 grew multidrug-resistant Pseudomonas aeruginosa. Zosyn discontinued, patient placed on meropenem gentamicin combination. This was discontinued on 08/09 and patient was started on Vabomere. Repeat blood cultures negative. Patient will need antibiotics for at least 2 weeks. Rentative completio date of 06/23. -Urine culture also grew multidrug-resistant Pseudomonas, this is likely source of infection -Right arm PICC line placed on 08/09 Left lower extremity cellulitis ~resolved Continue to keep leg elevated Continue current antibiotics Patient does have wound on her upper inner thigh however it is scabbed over and is healing. This wound is from when her dog jumped up and scratched on her. Possible source of the cellulitis infection could be Pasteurella species, is covered with Vabomere. -Blister forming on top of left foot: Apply Silvadene ointment to area. Venous Doppler negative for DVT Pneumonia ~resolved -still has bilateral crackes/rales but does have chronic interstitial lung pattern, past HX of smoking -most recent CXR on 08/17 showed no new masses or consolidations -continue scheduled nebulized treatments and home trilogy. -Continue current antibiotic -prednisone 10mg titrated from BID to daily on 08/[address] chest showed 16mm right lower lobe pulmonary nodule. Cannot rule out neoplasm. Recommend PET scan/biopsy. Oral thrush ~resolved HFpEF -Medical management per primary team Leukocytosis ~resolved Plan of care discussed Dr. Richardson Thank for consultation Physician Review: Patient Assessed, Agree with Above Assessment and Plan
[2021-08-17] MEDS: LEVALBUTEROL 1.25 MG/3 ML NEB NEB PRN (19:40)
[2021-08-17] MEDS: ATORVASTATIN 40 MG TAB PO SCH (22:06)
[2021-08-17] MEDS: clonazePAM 1 MG TAB PO PRN (22:06)
--- NOTE | 2021-08-17 23:18 | P.PN ---
Date of Service: 08/17/21 Subjective Subjective: patient is doing better. She walked with the nurse from 1 side of the bed to the door. She walked back. She did not get overly short of breath. She is doing better overall. She wanted chronic go to a halfway facility. I spoke to the who states that patient's son is on her way home. And once he gets home he is going to help take care of his mother as well. So at this time either she will go to halfway at [facility] or she will go h ome with home health with her son assisting with her care. Review of Systems 10-point ROS is otherwise unremarkable Physical Examination - Vital Signs Reviewed - Physical Exam General: Alert, In no apparent distress, Oriented x3 HEENT: Within normal limits Respiratory: Diminished breath sounds with mild expiratory wheezing Cardiovascular: Regular rate/rhythm, Normal S1 S2 Gastrointestinal: Normal bowel sounds, No tenderness Neurological: Normal speech, Normal tone, Normal affect Skin: Left lower extremity with some erythema to the caro; improved Assessment & Plan - Problems (Diagnosis) (1) Cellulitis Current Visit: Yes Status: Acute (2) Sepsis secondary to Pseudomonas associated hypotension Current Visit: Yes Status: Acute (3) COPD (chronic obstructive pulmonary disease) Current Visit: No Status: Acute Qualifiers: Emphysema type: unspecified (4) Atrial fibrillation with rapid ventricular response Current Visit: Yes Status: Acute - Plan Continue with plan of care as mentioned below: 1. Continue with IV antibiotic; 2. Continue with local wound care to the left leg 3. strict blood pressure and blood sugar control 4. Hep-Lock IV 5. Monitor CBC and renal function closely 6. Strict blood sugar monitoring 7. Pain control 8. Cardiology consultation appreciated 9. Infectious Disease consultation appreciated 10. Pulmonary consultation appreciated 11. echocardiogram reviewed; mild diastolic heart failure 12. medication for rate control & anticoagulation 13. Physical therapy may need to become more aggressive depending on how patient is doing 14. Flutter valve 15. GI and DVT prophylaxis
--- NOTE | 2021-08-17 23:57 | P.PN ---
Date of Service: 08/17/21 [id number]: I was passing by patient's room when I saw she was on the floor being assisted by nursing staff. Patient apparently tried to get up from bed, but does not remember why, and fell onto the floor. She reports that her feet slipped underneath her and she slid down onto her bottom. Skin tear noted to left upper caro. No other injuries noted. Nursing staff reports patient has been slightly more confused tonight compared to previous nights (likely sun downing). Patient denies pain. She is moving all extremities appropriately. Neurologic exam benign. She did not hit her head or lose consciousness. No concern/need for further work up at this time.
[2021-08-18] MEDS: MEROPENEM/VABORBACTAM 4 GM in NA CHLORIDE 0.9% 250 ML IV SCH ×3 (00:35→17:42)
[2021-08-18] MEDS: IPRATROPIUM BROM 0.5MG/2.5ML NEB SCH ×4 (01:10→20:35)
[2021-08-18 04:03] LABS: Absolute Lymphocytes (CBC) 0.4 K/uL (0.7-4.9); Hematocrit 25.2 % (36.0-45.0); Lymphocytes % 3.5 % (15.3-44.8); MCV 92.4 fL (80-100); MPV 8.1 fL (7.6-11.3); RBC Red Blood Cell Count 2.73 M/uL (3.86-4.86)
[2021-08-18 04:49] LABS: Albumin 2.2 g/dL (3.4-5.0); Bilirubin Total 0.2 mg/dL (0.2-1.0); Folic Acid, (Folate) 11.1 ng/mL (3.1-17.5); Magnesium 2.3 mg/dL (1.8-2.4); Phosphorus 1.4 mg/dL (2.5-4.9); Potassium 3.7 mmol/L (3.5-5.1); Protein, Total 5.3 g/dL (6.4-8.2); Thyroid Stimulating Hormone 0.736 uIU/mL (0.360-3.740)
[2021-08-18] MEDS: DILTIAZEM HCL 60 MG TAB PO SCH ×4 (05:50→17:42)
--- NOTE | 2021-08-18 07:28 | RAD REPORT ---
EXAM DESCRIPTION: RAD - Chest Single View - 08/18/2021 5:52 am CLINICAL HISTORY: pneumonia COMPARISON: Chest Single View dated 08/16/2021; Chest Single View dated 08/12/2021; Chest Single View dated 08/10/2021; Chest Single View dated 08/05/2021; Abdomen W Contrast dated 08/06/2021; Chest Angio d ated 08/10/2021 FINDINGS: Lines: Right subclavian approach PICC with tip in similar positioning overlying the distal SVC. Lungs: Mild opacities are noted at the lung bases. Pleural: Small effusions suspected Cardiac: The heart size is within normal limits. Bones: No acute fractures. Kyphoplasty changes Other: IMPRESSION: Similar aeration of the lungs with small pleural effusions and likely underlying atelect asis.
[2021-08-18] MEDS ORDERED: POTASSIUM PHOS IN 0.9 % NACL 15 MMOL/250 ML BAG IV ONE (07:54)
[2021-08-18] MEDS: APIXABAN 5 MG TABLET PO SCH ×2 (08:53→20:04)
[2021-08-18] MEDS: acetaZOLAMIDE 250 MG TAB PO SCH ×2 (08:53→20:04)
[2021-08-18] MEDS: carvediloL 6.25 MG TAB PO SCH ×2 (08:53→20:11)
[2021-08-18] MEDS: ENSURE ENLIVE 237 ML CAN PO SCH ×2 (08:53→20:07)
[2021-08-18] MEDS: DIGOXIN 0.125 MG TABLET PO SCH (08:53)
[2021-08-18] MEDS ORDERED: predniSONE 10 MG TAB PO SCH (09:00)
[2021-08-18] MEDS: ARFORMOTEROL TARTRATE 15 MCG/2 ML VIAL.NEB NEB SCH ×2 (09:06→20:35)
--- NOTE | 2021-08-18 12:09 | P.PN ---
Subjective Date of Service: 08/18/21 Chief Complaint: Pseudomonas bacteremia Patient seen and examined at bedside, per nursing staff had small fall yesterday after she slipped out of her bed. New left knee skin tear noted. Review of Systems 10-point ROS is otherwise unremarkable Physical Examination - Vital Signs Temperature: 96.9 F Blood Pressure: 132/68 Pulse: 91 Respirations: 20 Pulse Ox (%): 95 - Studies Medications List Reviewed: Yes Assessment And Plan - Plan Physical Exam: General: Alert, In no apparent distress HEENT: Atraumatic, Normocephalic. Dried blood noted on lips multiple sores on the buccal mucosa inside of the mouth. Neck: 2+ carotid pulse no bruit Respiratory: Other (Bilateral crackles/rales) Cardiovascular: Regular rate/rhythm, Normal S1 S2. Protrusion noted in center of patient's chest, resembling pectus carinatum. Patient states that that protrusion has been there for several years. Capillary refill: <2 Seconds Gastrointestinal: Normal bowel sounds, Soft and benign Integumentary: Other (Left lower extremity cellulitis with swelling) Conclusions/Impression: Antibiotics Vabomere: 08/09current Meropenem/gentamicin: Zosyn: Assessment/plan Bacteremia Blood cultures obtained on 08/05 grew multidrug-resistant Pseudomonas aeruginosa. Zosyn discontinued, patient placed on meropenem gentamicin combination. This was discontinued on 08/09 and patient was started on Vabomere. Repeat blood cultures negative. Patient will need antibiotics for at least 2 weeks. Rentative completio date of 08/23. -Urine culture also grew multidrug-resistant Pseudomonas, this is likely source of infection -Right arm PICC line placed on 08/09 Left lower extremity cellulitis ~resolved Continue to keep leg elevated Continue current antibiotics Patient does have wound on her upper inner thigh however it is scabbed over and is healing. This wound is from when her dog jumped up and scratched on her. Possible source of the cellulitis infection could be Pasteurella species, is covered with Vabomere. -Blister forming on top of left foot: Apply Silvadene ointment to area. Venous Doppler negative for DVT Multiple upper/lower extremity skin tears Wound care: Clean with normal saline, apply Xeroform, cover with Mepilex Pneumonia ~resolved -still has bilateral crackes/rales but does have chronic interstitial lung pattern, past HX of smoking -most recent CXR on 08/17 showed no new masses or consolidations -continue scheduled nebulized treatments and home trilogy. -Continue current antibiotic -prednisone 10mg titrated from BID to daily on 08/[address] chest showed 16mm right lower lobe pulmonary nodule. Cannot rule out neoplasm. Recommend PET scan/biopsy. Oral thrush ~resolved HFpEF -Medical management per primary team Leukocytosis -Continue to monitor, likely secondary to steroid use Plan of care discussed Dr. Richardson Thank for consultation Physician Review: Patient Assessed, Agree with Above Assessment and Plan
[2021-08-18] MEDS ORDERED: clonazePAM 1 MG TAB PO PRN (12:42)
--- NOTE | 2021-08-18 15:25 | P.PN ---
Date of Service: 08/18/21 Subjective Subjective: Patient has been doing better and has started ambulating. However, she fell. She suffered a knee scrape. She was placed on BiPAP but she does not want this and we take her off and she is satting 100% on 4 L. Continue with physical therapy. Working on senior living facility placement or home with home health. Review of Systems 10-point ROS is otherwise unremarkable Physical Examination - Vital Signs Reviewed - Physical Exam General: Alert, In no apparent distress, Oriented x3 HEENT: Within normal limits Respiratory: Diminished breath sounds with mild expiratory wheezing Cardiovascular: Regular rate/rhythm, Normal S1 S2 Gastrointestinal: Normal bowel sounds, No tenderness Neurological: Normal speech, Normal tone, Normal affect Skin: Left lower extremity with some erythema to the caro; improved Assessment & Plan - Problems (Diagnosis) (1) Cellulitis Current Visit: Yes Status: Acute (2) Sepsis secondary to Pseudomonas associated hypotension Current Visit: Yes Status: Acute (3) COPD (chronic obstructive pulmonary disease) Current Visit: No Status: Acute Qualifiers: Emphysema type: unspecified (4) Atrial fibrillation with rapid ventricular response Current Visit: Yes Status: Acute - Plan Continue with plan of care as mentioned below: 1. Continue with IV antibiotic; 2. Fall precautions 3. strict blood pressure and blood sugar control 4. Hep-Lock IV 5. Monitor CBC and renal function closely 6. Strict blood sugar monitoring 7. Pain control 8. Cardiology consultation appreciated 9. Infectious Disease consultation appreciated 10. Pulmonary consultation appreciated 11. echocardiogram reviewed; mild diastolic heart failure 12. medication for rate control & anticoagulation 13. Physical therapy may need to become more aggressive depending on how patient is doing 14. Flutter valve 15. GI and DVT prophylaxis
[2021-08-18] MEDS: ATORVASTATIN 40 MG TAB PO SCH (20:04)
[2021-08-19] MEDS: MEROPENEM/VABORBACTAM 4 GM in NA CHLORIDE 0.9% 250 ML IV SCH ×3 (00:18→17:47)
[2021-08-19] MEDS: DILTIAZEM HCL 60 MG TAB PO SCH ×4 (00:25→21:08)
[2021-08-19] MEDS: IPRATROPIUM BROM 0.5MG/2.5ML NEB SCH ×4 (01:30→19:25)
[2021-08-19 06:11] LABS: Absolute Lymphocytes (CBC) 0.4 K/uL (0.7-4.9); Lymphocytes % 4.1 % (15.3-44.8); MCV 93.2 fL (80-100); MPV 8.2 fL (7.6-11.3); RBC Red Blood Cell Count 2.58 M/uL (3.86-4.86)
[2021-08-19 06:39] LABS: Digoxin Level 1.5 ng/mL (0.80-2.00); Potassium 3.4 mmol/L (3.5-5.1)
[2021-08-19] MEDS: ARFORMOTEROL TARTRATE 15 MCG/2 ML VIAL.NEB NEB SCH ×2 (07:41→19:25)
[2021-08-19 07:45] LABS: Magnesium 2.3 mg/dL (1.8-2.4); Phosphorus 1.4 mg/dL (2.5-4.9)
[2021-08-19] MEDS: ENSURE ENLIVE 237 ML CAN PO SCH ×2 (09:00→21:00)
[2021-08-19] MEDS ORDERED: POTASSIUM PHOS IN 0.9 % NACL 15 MMOL/250 ML BAG IV ONE (09:00)
[2021-08-19] MEDS: APIXABAN 5 MG TABLET PO SCH ×2 (09:11→21:08)
[2021-08-19] MEDS: carvediloL 6.25 MG TAB PO SCH ×2 (09:11→21:08)
[2021-08-19] MEDS: DIGOXIN 0.125 MG TABLET PO SCH (09:11)
[2021-08-19] MEDS: predniSONE 20 MG TAB PO SCH (09:11)
[2021-08-19] MEDS: acetaZOLAMIDE 250 MG TAB PO SCH ×2 (09:11→21:08)
[2021-08-19] MEDS: D5W 1,000 ML IV SCH ×2 (09:12→21:27)
--- NOTE | 2021-08-19 11:18 | P.PN ---
Subjective Date of Service: 08/19/21 Chief Complaint: Pseudomonas bacteremia Patient seen and examined at bedside, intermittently using bipap. Oz stats stable. Review of Systems 10-point ROS is otherwise unremarkable Physical Examination - Vital Signs Temperature: 98.3 F Blood Pressure: 104/61 Pulse: 93 Respirations: 28 Pulse Ox (%): 99 - Studies Laboratory Last Values WBC 6.1 K/uL (4.3-10.9) 08/05/21 10:40 RBC 4.42 M/uL (3.86-4.86) 08/05/21 10:40 Hgb 13.7 g/dL (12.0-15.0) 08/05/21 10:40 Hct 39.9 % (36.0-45.0) 08/05/21 10:40 MCV 90.3 fL (80-100) 08/05/21 10:40 MCH 30.9 pg (27.0-35.0) 08/05/21 10:40 MCHC 34.2 g/dL (32.0-36.0) 08/05/21 10:40 RDW 17.3 % (12.1-15.2) H 08/05/21 10:40 Plt Count 284 K/uL (152-406) 08/05/21 10:40 MPV 7.2 fL (7.6-11.3) L 08/05/21 10:40 Neutrophils % 89.7 % (41.7-73.7) H 08/05/21 10:40 Lymphocytes % 7.5 % (15.3-44.8) L 08/05/21 10:40 Monocytes % 2.2 % (3.3-12.3) L 08/05/21 10:40 Eosinophils % 0.5 % (0-4.4) 08/05/21 10:40 Basophils % 0.1 % (0-1.3) 08/05/21 10:40 Absolute Neutrophils 5.5 K/uL (1.8-8.0) 08/05/21 10:40 Absolute Lymphocytes 0.5 K/uL (0.7-4.9) L 08/05/21 10:40 Absolute Monocytes 0.1 K/uL (0.1-1.3) 08/05/21 10:40 Absolute Eosinophils 0.0 K/uL (0-0.5) 08/05/21 10:40 Absolute Basophils 0.0 K/uL (0-0.5) 08/05/21 10:40 PT 10.3 SECONDS (9.5-12.5) 08/05/21 10:40 INR 0.94 08/05/21 10:40 APTT 21.6 SECONDS (24.3-36.9) L 08/05/21 10:40 Sodium 138 mmol/L (136-145) 08/05/21 10:40 Potassium 4.0 mmol/L (3.5-5.1) 08/05/21 10:40 Chloride 103 mmol/L (98-107) 08/05/21 10:40 Carbon Dioxide 32 mmol/L (21-32) 08/05/21 10:40 Anion Gap 7.0 mEq/L (5.0-15.0) 08/05/21 10:40 BUN 32 mg/dL (7-18) H 08/05/21 10:40 Creatinine 0.82 mg/dL (0.55-1.3) 08/05/21 10:40 Est GFR (CKD-EPI) 78 ml/min (=/>90) L 08/05/21 10:40 Glucose 79 mg/dL (74-106) 08/05/21 10:40 Lactic Acid 1.6 mmol/L (0.4-2.0) 08/05/21 10:40 Calcium 9.0 mg/dL (8.5-10.1) 08/05/21 10:40 Total Bilirubin 0.3 mg/dL (0.2-1.0) 08/05/21 10:40 AST 20 U/L (15-37) 08/05/21 10:40 ALT 36 U/L (12-78) 08/05/21 10:40 Alkaline Phosphatase 37 U/L (45-117) L 08/05/21 10:40 Troponin I High Sens 95.3 pg/mL (<58.9) H* 08/05/21 10:40 NT-Pro-B Natriuret Pep 641 pg/mL (<125) H 08/05/21 10:40 Serum Total Protein 6.3 g/dL (6.4-8.2) L 08/05/21 10:40 Albumin 2.8 g/dL (3.4-5.0) L 08/05/21 10:40 Globulin 3.5 g/dL (2.3-3.5) 08/05/21 10:40 Albumin/Globulin Ratio 0.8 (1.1-1.8) L 08/05/21 10:40 SARS-CoV-2 Rap RNA(RT-PCR) Negative (NEGATIVE) 08/05/21 10:40 Medications List Reviewed: Yes Assessment And Plan - Plan Physical Exam: General: Alert, In no apparent distress HEENT: Atraumatic, Normocephalic. Dried blood noted on lips Neck: 2+ carotid pulse no bruit Respiratory: Other (Bilateral crackles/rales) Cardiovascular: Regular rate/rhythm, Normal S1 S2. Protrusion noted in center of patient's chest, resembling pectus carinatum. Patient states that that protr usion has been there for several years. Capillary refill: <2 Seconds Gastrointestinal: Normal bowel sounds, Soft and benign Integumentary: Other (Left lower extremity cellulitis with swelling) Conclusions/Impression: Antibiotics Vabomere: 08/09current Meropenem/gentamicin: Zosyn: Assessment/plan Bacteremia Blood cultures obtained on 08/05 grew multidrug-resistant Pseudomonas aeruginosa. Zosyn discontinued, patient placed on meropenem gentamicin combination. This was discontinued on 08/09 and patient was started on Vabomere. Repeat blood cultures negative. Patient will need antibiotics for at least 2 weeks. Rentative completio date of 08/23. -Urine culture also grew multidrug-resistant Pseudomonas, this is likely source of infection -Right arm PICC line placed on 08/09 Left lower extremity cellulitis ~resolved Continue to keep leg elevated Continue current antibiotics Patient does have wound on her upper inner thigh however it is scabbed over and is healing. This wound is from when her dog jumped up and scratched on her. Possible source of the cellulitis infection could be Pasteurella species, is covered with Vabomere. -Blister forming on top of left foot: Apply Silvadene ointment to area. Venous Doppler negative for DVT Multiple upper/lower extremity skin tears Wound care: Clean with normal saline, apply Xeroform, cover with Mepilex Pneumonia ~resolved -still has bilateral crackes/rales but does have chronic interstitial lung pattern, past HX of smoking -most recent CXR on 08/17 showed no new masses or consolidations -continue scheduled nebulized treatments and home trilogy. -Continue current antibiotic -prednisone 10mg titrated from BID to daily on 08/[address] chest showed 16mm right lower lobe pulmonary nodule. Cannot rule out neoplasm. Recommend PET scan/biopsy. Oral thrush ~resolved HFpEF -Medical management per primary team Leukocytosis -Continue to monitor, likely secondary to steroid use Plan of care discussed Dr. Richardson Thank for consultation Physician Review: Patient Assessed, Agree with Above Assessment and Plan
[2021-08-19] MEDS ORDERED: METHYLPREDNISOLONE 125 MG INJ IV ONE (12:00)
[2021-08-19] MEDS: ATORVASTATIN 40 MG TAB PO SCH (21:09)
[2021-08-20] MEDS: MEROPENEM/VABORBACTAM 4 GM in NA CHLORIDE 0.9% 250 ML IV SCH ×3 (00:10→16:48)
[2021-08-20] MEDS: IPRATROPIUM BROM 0.5MG/2.5ML NEB SCH ×4 (01:40→19:45)
[2021-08-20 04:28] LABS: Potassium 3.6 mmol/L (3.5-5.1)
[2021-08-20] MEDS: POTASSIUM CL SA 10 MEQ TAB PO ONE ×2 (06:06→08:55)
[2021-08-20] MEDS ORDERED: POTASSIUM CL SA 10 MEQ TAB PO ONE (07:39)
[2021-08-20] MEDS: acetaZOLAMIDE 250 MG TAB PO SCH ×2 (08:53→20:29)
[2021-08-20] MEDS: DILTIAZEM HCL 60 MG TAB PO SCH ×3 (08:54→20:28)
[2021-08-20] MEDS: APIXABAN 5 MG TABLET PO SCH ×2 (08:55→20:29)
[2021-08-20] MEDS: predniSONE 20 MG TAB PO SCH (08:55)
[2021-08-20] MEDS: carvediloL 6.25 MG TAB PO SCH ×2 (08:56→20:29)
[2021-08-20] MEDS: DIGOXIN 0.125 MG TABLET PO SCH (08:57)
[2021-08-20] MEDS: ENSURE ENLIVE 237 ML CAN PO SCH (08:58)
[2021-08-20] MEDS: ARFORMOTEROL TARTRATE 15 MCG/2 ML VIAL.NEB NEB SCH ×2 (09:06→19:45)
--- NOTE | 2021-08-20 12:30 | RAD REPORT ---
EXAM DESCRIPTION: RAD - Chest Single View - 08/20/2021 12:17 pm CLINICAL HISTORY: pneumonia COMPARISON: Chest Single View dated 08/18/2021; Chest Single View dated 08/16/2021; Chest Single View dated 08/12/2021; Chest Single View dated 08/10/2021; Chest Angio dated 08/10/2021 FINDINGS: Lines: Right IJ approach PICC with tip overlying the SVC. Lungs: Basilar opacities again identified. Increased opacities are present at the right lung base. Pleural: Small effusions. Cardiac: The heart size is within normal limits. Bones: No acute fractures. Other: IMPRESSION: Increased basilar airspace disease compared with prior. The findings may be a combinatio n of atelectasis and/or infiltrate.
[2021-08-20 16:26] VITALS: TEMP 98.3
[2021-08-20 20:21] VITALS: O2SAT 96
[2021-08-20] MEDS: ATORVASTATIN 40 MG TAB PO SCH (20:29)
[2021-08-20 20:30] VITALS: BP 135/59
--- NOTE | 2021-08-22 00:03 | P.PN ---
Date of Service: 08/19/21 Subjective Subjective: Patient is slowly improving. Family wanted discharge in the morning. Review of Systems 10-point ROS is otherwise unremarkable Physical Examination - Vital Signs Reviewed - Physical Exam General: Alert, In no apparent distress, Oriented x3 HEENT: Within normal limits Respiratory: Diminished breath sounds with mild expiratory wheezing Cardiovascular: Regular rate/rhythm, Normal S1 S2 Gastrointestinal: Normal bowel sounds, No tenderness Neurological: Normal speech, Normal tone, Normal affect Skin: Left lower extremity with some erythema to the crao; improved Assessment & Plan - Problems (Diagnosis) (1) Cellulitis Current Visit: Yes Status: Acute (2) Sepsis secondary to Pseudomonas associated hypotension Current Visit: Yes Status: Acute (3) COPD (chronic obstructive pulmonary disease) Current Visit: No Status: Acute Qualifiers: Emphysema type: unspecified (4) Atrial fibrillation with rapid ventricular response Current Visit: Yes Status: Acute - Plan Continue with plan of care as mentioned below: 1. Continue with IV antibiotic; 2. Fall precautions 3. strict blood pressure and blood sugar control 4. Hep-Lock IV 5. Monitor labs 6. Strict blood sugar monitoring 7. Pain control 8. Cardiology consultation appreciated 9. Infectious Disease consultation appreciated 10. Pulmonary consultation appreciated 11. echocardiogram reviewed; mild diastolic heart failure 12. medication for rate control & anticoagulation 13. Physical therapy may need to become more aggressive depending on how patient is doing 14. Flutter valve 15. GI and DVT prophylaxis
--- NOTE | 2021-08-22 00:05 | P.DS ---
Discharge Date: 08/20/21 Disposition: DC HOME/HOME HEALTH CARE Discharge Condition: FAIR Reason for Admission: Pseudomonas bacteremia - Problems (1) Cellulitis Status: Acute (2) Sepsis associated hypotension Status: Acute (3) COPD (chronic obstructive pulmonary disease) Status: Acute Qualifiers: Emphysema type: unspecified (4) Atrial fibrillation with rapid ventricular response Status: Acute Brief History of Present Illness: Patient is a 70-year-old female came to the hospital with pain and shortness of breath. She has been having pain in the left leg which has gotten worse over the last 48 hours. Her clinical symptoms continued to worsen so she came to the emergency room. In the emergency room she was started on IV antibiotic therapy. She was also having severe shortness of breath. She was tachypneic but this may have been related to her pain. She appeared to be septic. She was placed on a BiPAP. She was oxygenating fairly well. She is also in atrial fibrillation with rapid ventricular response. I started her on digoxin. She takes carvedilol at home. Questionable history of congestive heart failure. Echocardiogram pending. As she appears to be septic I will err on the side of giving her some IV fluids to stabilize her hemodynamics. On the floor she was hypotensive with a systolic blood pressure in the 80s. Will monitor her closely in the ICU. Hospital Course: Patient has done well during hospital stay. Patient's sepsis has resolved. Patient is clinically doing much better and patient is trying to ambulate. Patient still is short of breath at rest and we tried to arrange for noninvasive ventilator. Patient's long-term prognosis appears to be poor. I did have a long talk with the family about this and if she is not improving then they may consider hospice care as well. They will also consider getting her back the hospital for symptoms were worsening. At this time, patient is stable for discharge home. Vital Signs/Physical Exam: Temp Pulse Resp BP Pulse Ox 98.3 F 94 H 18 135/59 L 93 08/20/21 16:00 08/20/21 20:29 08/20/21 16:00 08/20/21 20:29 08/20/21 16:00 General: Alert, In no apparent distress, Oriented x3 Laboratory Data at Discharge: WBC 8.6 K/uL (4.3-10.9) D 08/19/21 05:25 Hgb 8.0 g/dL (12.0-15.0) L 08/19/21 05:25 Hct 24.0 % (36.0-45.0) L 08/19/21 05:25 Plt Count 290 K/uL (152-406) 08/19/21 05:25 PT 10.3 SECONDS (9.5-12.5) 08/05/21 10:40 INR 0.94 08/05/21 10:40 APTT 21.6 SECONDS (24.3-36.9) L 08/05/21 10:40 Sodium 147 mmol/L (136-145) H 08/20/21 04:00 Potassium 3.6 mmol/L (3.5-5.1) 08/20/21 04:00 BUN 27 mg/dL (7-18) H 08/20/21 04:00 Creatinine 0.55 mg/dL (0.55-1.3) 08/20/21 04:00 Glucose 148 mg/dL (74-106) H 08/20/21 04:00 Phosphorus 1.4 mg/dL (2.5-4.9) L 08/19/21 05:25 Magnesium 2.3 mg/dL (1.8-2.4) 08/19/21 05:25 Total Bilirubin 0.2 mg/dL (0.2-1.0) 08/18/21 03:45 AST 21 U/L (15-37) 08/18/21 03:45 ALT 37 U/L (12-78) 08/18/21 03:45 Alkaline Phosphatase 56 U/L (45-117) 08/18/21 03:45 Triglycerides 198 mg/dL (<150) H 08/06/21 04:40 Cholesterol 148 mg/dL (<200) 08/06/21 04:40 HDL Cholesterol 78 mg/dL (40-60) H 08/06/21 04:40 Cholesterol/HDL Ratio 1.90 08/06/21 04:40 Home Medications: Atorvastatin Calcium [Lipitor] 40 mg PO BEDTIME 01/29/18 Fluticasone/Umeclidin/Vilanter [Trelegy Ellipta 100-62.5-25] 1 each IH AC 01/29/18 carvediloL [Coreg*] 6.25 mg PO BID 01/29/18 predniSONE [Prednisone*] 20 mg PO DAILY 08/05/21 Apixaban [Eliquis] 5 mg PO BID #60 tablet 08/20/21 Arformoterol Tartrate [Brovana] 15 mcg NEB BIDRESP #60 vial.neb 08/20/21 Benzonatate [Tessalon Perle*] 100 mg PO TID PRN #60 cap 08/20/21 Digoxin [Lanoxin*] 0.125 mg PO DAILY #30 tab 08/20/21 Diltiazem Tab [Cardizem Tab*] 30 mg PO TID #45 tab 08/20/21 Ensure Enlive 237 ml PO BID #60 can 08/20/21 Ipratropium Neb [Atrovent*] 0.5 mg NEB [id number] #60 amp 08/20/21 Levalbuterol [Xopenex*] 1.25 mg NEB [id number] PRN #60 vial 08/20/21 acetaZOLAMIDE [Diamox*] 125 mg PO BID #30 tab 08/20/21 clonazePAM [Klonopin*] 1 mg PO BEDTIME PRN #30 tab 08/20/21 predniSONE [Prednisone*] 20 mg PO DAILY #30 tab 08/20/21 New Medications: Ipratropium Neb [Atrovent*] 0.5 mg NEB [id number] #60 amp Arformoterol Tartrate [Brovana] 15 mcg NEB BIDRESP #60 vial.neb Diltiazem Tab [Cardizem Tab*] 30 mg PO TID #45 tab acetaZOLAMIDE [Diamox*] 125 mg PO BID #30 tab Apixaban [Eliquis] 5 mg PO BID #60 tablet Ensure Enlive 237 ml PO BID #60 can clonazePAM [Klonopin*] 1 mg PO BEDTIME PRN #30 tab PRN Reason: Insomnia Digoxin [Lanoxin*] 0.125 mg PO DAILY #30 tab predniSONE [Prednisone*] 20 mg PO DAILY #30 tab Benzonatate [Tessalon Perle*] 100 mg PO TID PRN #60 cap PRN Reason: Cough Levalbuterol [Xopenex*] 1.25 mg NEB [id number] PRN #60 vial PRN Reason: Shortness Of Breath Physician Discharge Instructions: OK TO DC IV AND DC HOME FOLLOW-UP WITH PRIMARY CARE PROVIDER IN 1-2 WEEKS FOLLOW-UP WITH PULMONARY IN 1-2 WEEKS RETURN TO THE ER IF sympoms worsens CALL DR. HATFIELD AT [phone] IF ANY QUESTIONS REGARDING HOSPITAL STAY. PLEASE CALL THE FLOOR AT [phone] IF ANY MEDICATION OR NURSING QUESTIONS Diet: AHA Activity: Fall precautions Time spent managing pt's care (in minutes): 35
== END 2021-08-20 20:45 | disposition home health service (06) | DRG 871 ==
LOC: ER 10:16 → ERHOLD 14:04 → 2ND 15:28 → 3RD-ICU 17:38 → 2ND 08-06 16:35 → 3RD-ICU 08-10 14:55 → 2ND 08-12 14:30
PROVIDERS: ADMIT Hospitalist; ATTEND Hospitalist
PROC: 5A09457 Assistance with Respiratory Ventilation, 24-96 Consecutive Hours, Continuous Positive Airway Pressure (ICD-10-PCS; 2021-08-05)
PROC: 02HV33Z Insertion of Infusion Device into Superior Vena Cava, Percutaneous Approach (ICD-10-PCS; principal; 2021-08-10)
PROC: 3E04329 Introduction of Other Anti-infective into Central Vein, Percutaneous Approach (ICD-10-PCS; 2021-08-10)
DX: A41.52 Sepsis due to Pseudomonas (principal); J18.9 Pneumonia, unspecified organism; R65.21 Severe sepsis with septic shock; J96.01 Acute respiratory failure with hypoxia; I50.33 Acute on chronic diastolic (congestive) heart failure; L03.116 Cellulitis of left lower limb; Z16.24 Resistance to multiple antibiotics; B37.0 Candidal stomatitis; F05 Delirium due to known physiological condition; N39.0 Urinary tract infection, site not specified; N12 Tubulo-interstitial nephritis, not specified as acute or chronic; J44.0 Chronic obstructive pulmonary disease with (acute) lower respiratory infection; J44.1 Chronic obstructive pulmonary disease with (acute) exacerbation; C34.31 Malignant neoplasm of lower lobe, right bronchus or lung; I24.8 Other forms of acute ischemic heart disease; I48.91 Unspecified atrial fibrillation; I11.0 Hypertensive heart disease with heart failure; Y92.230 Patient room in hospital as the place of occurrence of the external cause; W06.XXXA Fall from bed, initial encounter; S81.012A Laceration without foreign body, left knee, initial encounter; B96.5 Pseudomonas (aeruginosa) (mallei) (pseudomallei) as the cause of diseases classified elsewhere; R53.1 Weakness; S70.922A Unspecified superficial injury of left thigh, initial encounter; S90.822A Blister (nonthermal), left foot, initial encounter; Z87.891 Personal history of nicotine dependence; Z20.822 Contact with and (suspected) exposure to COVID-19
CPT/HCPCS: 36415; 36569; 71045; 71275; 74160; 80048; 80053; 80061; 80162; 80202; 81003; 81015; 82533; 82607; 82746; 82805; 83540; 83605; 83735; 83880; 84100; 84132; 84145; 84439; 84443; 84484; 85025; 85044; 85610; 85730; 87040; 87077; 87086; 87088; 87186; 87205; 93005; 93306; 93971; 94010; 94660; 94760; 96374; 96375; 97110; 97116; 97161; 97530; 99285; J1160; J1580; J1650; J1940; J2185; J2270; J2310; J2405; J2543; J2920; J2930; J3010; J3370; J3480; J7030; J7040; J7050; J7512; J7605; Q9967; U0003

== ENCOUNTER 2021-08-23 01:02 | Inpatient (IN) | payer BC, OTHER ==
[2021-08-23] MEDS ORDERED: Meropenem 1000 MG/VIAL IV ONE (01:33)
[2021-08-23] MEDS ORDERED: FAMOTIDINE 20 MG/2 ML VIAL IV ONE (01:33)
[2021-08-23] MEDS ORDERED: IPRATROPIUM BROM 0.5MG/2.5ML ONE (01:33)
[2021-08-23] MEDS ORDERED: NA CHLORIDE 0.9% 1,000 ML ONE (01:33)
[2021-08-23] MEDS ORDERED: NA CHLORIDE 0.9% 100 ML ONE (01:33)
[2021-08-23] MEDS ORDERED: LEVALBUTEROL 1.25 MG/3 ML NEB ONE (01:33)
[2021-08-23] MEDS ORDERED: METHYLPREDNISOLONE 125 MG INJ ONE (01:33)
[2021-08-23 01:42] LABS: Arterial Blood Carboxyhemoglob 1.3 % (0-1.5); Blood Gas Oxyhemoglobin 97.3 % (94-97); Blood O2 Saturation 99.7 % (92-98.5)
--- NOTE | 2021-08-23 01:47 | EDPHYS ---
Physician Documentation [facility] Name: Tika Lynne Age: 70 yrs Sex: Female : 1950 Arrival Date: 08/23/2021 Time: 01:05 Bed 4 Private MD: RICHIE Physician Jose Roberto Alanis HPI: 08/23 01:20 This 70 yrs old Female presents to ER via Unassigned with complaints of ashutosh Breathing Difficulty. 01:20 The patient has shortness of breath at rest. Onset: The symptoms/episode began/occurred ashutosh 6 day(s) ago. Duration: The symptoms are continuous, and are steadily getting worse. The patient's shortness of breath is aggravated by exertion, light activity, prone position, supine position, talking, walking, is alleviated by elevating head, pursed lip breathing, rest, sitting up, application of supplemental oxygen. Associated signs and symptoms: Pertinent positives: non-productive cough. Severity of symptoms: At their worst the symptoms were mild in the emergency department the symptoms are unchanged. The patient has experienced similar episodes in the past, multiple times. Historical: - Allergies: 01:29 BACITRACIN; lp1 01:29 Levofloxacin; lp1 01:29 Neomycin Sulfate; lp1 01:29 PENICILLINS; lp1 - Home Meds: 01:36 diltiazem HCl 30 mg Oral tab 3 times per day [Active]; acetazolamide 125 mg Oral tab 2 lp1 times per day [Active]; Eliquis 5 mg oral tab 1 tab 2 times per day [Active]; clonazepam 1 mg Oral tab nightly [Active]; digoxin 125 mcg (0.125 mg) Oral tab 1 tab once daily [Active]; prednisone 20 mg Oral tab once daily [Active]; benzonatate 100 mg oral cap 1 cap 3 times per day [Active]; 01:41 Trelegy Ellipta inhalation [Active]; carvedilol 6.25 mg Oral tab every 12 hours lp1 [Active]; atorvastatin 40 mg oral tab 1 tab once daily [Active]; arformoterol inhalation [Active]; Atrovent Nebulizer [Active]; Xopenex Nebulizer [Active]; - PMHx: 01:29 Chronic obstructive lung disease; Congestive heart failure; Hypertensive disorder; lp1 - Immunization history:: Adult Immunizations up to date. - Family history:: not pertinent. - Social history:: Smoking status: unknown. ROS: 01:20 Constitutional: Negative for fever, chills, and weight loss, Eyes: Negative for injury, ashutosh pain, redness, and discharge, ENT: Negative for injury, pain, and discharge, Neck: Negative for injury, pain, and swelling, Cardiovascular: Negative for chest pain, palpitations, and edema, Abdomen/GI: Negative for abdominal pain, nausea, vomiting, diarrhea, and constipation, Back: Negative for injury and pain, : Negative for injury, bleeding, discharge, and swelling, MS/Extremity: Negative for injury and deformity, Skin: Negative for injury, rash, and discoloration, Neuro: Negative for headache, weakness, numbness, tingling, and seizure. 01:20 Respiratory: Positive for cough, shortness of breath, wheezing, expiratory. Exam: 01:20 Constitutional: This is a well developed, well nourished patient who is awake, alert, ashutosh and in no acute distress. Head/Face: Normocephalic, atraumatic. Eyes: Pupils equal round and reactive to light, extra-ocular motions intact. Lids and lashes normal. Conjunctiva and sclera are non-icteric and not injected. Cornea within normal limits. Periorbital areas with no swelling, redness, or edema. ENT: Nares patent. No nasal discharge, no septal abnormalities noted. Tympanic membranes are normal and external auditory canals are clear. Oropharynx with no redness, swelling, or masses, exudates, or evidence of obstruction, uvula midline. Mucous membranes moist. Neck: Trachea midline, no thyromegaly or masses palpated, and no cervical lymphadenopathy. Supple, full range of motion without nuchal rigidity, or vertebral point tenderness. No Meningismus. Chest/axilla: Normal chest wall appearance and motion. Nontender with no deformity. No lesions are appreciated. Cardiovascular: Regular rate and rhythm with a normal S1 and S2. No gallops, murmurs, or rubs. Normal PMI, no JVD. No pulse deficits. Abdomen/GI: Soft, non-tender, with normal bowel sounds. No distension or tympany. No guarding or rebound. No evidence of tenderness throughout. Back: No spinal tenderness. No costovertebral tenderness. Full range of motion. Female : Normal external genitalia. Skin: Warm, dry with normal turgor. Normal color with no rashes, no lesions, and no evidence of cellulitis. 01:20 Respiratory: mild respiratory distress is noted, Respirations: labored breathing, that is mild, Breath sounds: bronchial sounds, that are mild, are scattered, decreased breath sounds, that are mild, rhonchi, that are moderate, stridor, is not appreciated, + upper airway congestion. wheezing: expiratory is scattered. 02:21 ECG was reviewed by the Attending Physician. ashutosh Vital Signs: 01:20 BP 150 / 91; Pulse 101; Resp 32; Pulse Ox 97% on 3 lpm NC; lp1 02:43 BP 131 / 81; Pulse 85; Resp 19; Pulse Ox 100% on BiPAP; sm5 03:30 BP 123 / 69; Pulse 90; Resp 22 S; Pulse Ox 97% on BiPAP; as6 Laceration: 03:02 Wound Repair of 5.5cm ( 2.2in ) subcutaneous laceration to left calf. Irregularly ashutosh shaped.. Distal neuro/vascular/tendon intact. Anesthesia: Local anesthetic administered with 10 mls of 1% lidocaine w/ Epi. Wound prep: Moderate cleansing by me, Wound explored. Skin closed with 3 4-0 Prolene using interrupted sutures and sterile technique. Dressed with Neosporin, pressure dressing, non-adherent dressing. Patient tolerated well. MDM: 01:09 Patient medically screened. ashutosh 01:09 Patient medically screened. ashutosh 01:23 Differential diagnosis: Anemia Anxiety Reaction asthma, Bronchitis CHF exacerbation, ashutosh Chronic Obstructive Pulmonary Disease Myocardial Infarction pneumonia, Pneumothorax pulmonary edema, reactive airway disease, Sepsis. Antibiotic administration: MERREM. The patient's Wells Deep Vein Thrombosis Score was calculated as follows: Total Score: 0-2 Pts- Low Risk. The patient's pulmonary embolism risk score was calculated as follows: Total Score: 0-2 points. This patient was found to be at low risk for a pulmonary embolism by using the Well's assessment criteria. Immunization status: Pneumococcal vaccine: Influenza vaccine: Data reviewed: vital signs, nurses notes, lab test result(s), EKG, radiologic studies, plain films. Data interpreted: conveyor monitor: rate is 85 beats/min, rhythm is regular, Pulse oximetry: on room air is 95 %. Test interpretation: by ED physician or midlevel provider: ECG, plain radiologic studies. Counseling: I had a detailed discussion with the patient and/or guardian regarding: the historical points, exam findings, and any diagnostic results supporting the discharge/admit diagnosis, lab results, radiology results, the need for further work-up and treatment in the hospital. 08/23 01:11 Order name: Basic Metabolic Panel; Complete Time: 02:20 [facility] 08/23 01:11 Order name: CBC with Diff; Complete Time: 02:20 [facility] 08/23 01:11 Order name: LFT's; Complete Time: 02:20 [facility] 08/23 01:11 Order name: Magnesium; Complete Time: 02:20 [facility] 08/23 01:11 Order name: NT PRO-BNP; Complete Time: 02:20 [facility] 08/23 01:11 Order name: PT-INR; Complete Time: 02:20 [facility] 08/23 01:11 Order name: Troponin HS; Complete Time: 02:20 [facility] 08/23 01:11 Order name: Blood Culture Adult (2) 08/23 01:11 Order name: Lactate; Complete Time: 02:20 [facility] 08/23 01:11 Order name: Flu; Complete Time: 02:20 [facility] 08/23 01:11 Order name: SARS-COV-2 RT PCR (Document "Date of Onset" if Symptomatic); Complete Time: ashutosh 02:34 08/23 01:17 Order name: ABG; Complete Time: 02:20 [facility] 08/23 01:53 Order name: Manual Differential; Complete Time: 02:20 EDMS 08/23 02:21 Order name: Type And Screen 08/23 01:11 Order name: XRAY Chest (1 view) 08/23 01:11 Order name: EKG; Complete Time: 01:13 [facility] 08/23 01:11 Order name: Cardiac monitoring; Complete Time: 01:22 [facility] 08/23 01:11 Order name: EKG - Nurse/Tech; Complete Time: 01:22 [place] 08/23 01:11 Order name: IV Saline Lock; Complete Time: 01:22 [facility] 08/23 01:11 Order name: Labs collected and sent; Complete Time: 01:38 [facility] 08/23 01:11 Order name: O2 Per Protocol; Complete Time: 01:22 [place] 08/23 01:11 Order name: O2 Sat Monitoring; Complete Time: :22 [facility] 08/23 01:17 Order name: BIPAP ashutosh EC:21 Rate is 102 beats/min. QRS [place] is Normal. ME interval is normal. QRS interval is ashutosh normal. QT interval is normal. No Q waves. T waves are Normal. ST Segment is depressed in leads II, III, aVF. Clinical impression: NSR w/ Non-specific ST/T Changes and No evidence of ischemia. Interpreted by me. Reviewed by me. Administered Medications: 01:37 Drug: Xopenex (levalbuterol) 3.75 mg Route: Inhalation; as6 04:28 Follow up: Response: No adverse reaction as6 01:37 Drug: AtroVENT (ipratropium) Aerosol 0.5 mg Route: Inhalation; as6 04:28 Follow up: Response: No adverse reaction as6 01:37 Drug: Meropenem 1 grams Route: IV; Rate: per protocol; Site: left antecubital; as6 02:20 Follow up: IV Status: Completed infusion; IV Intake: 100ml sm5 01:38 Drug: NS 0.9% 1000 ml Route: IV; Rate: 125 ml/hr; Site: left antecubital; as6 04:28 Follow up: IV Status: Infusion continued upon admission as6 01:38 Drug: Pepcid (famotidine) 20 mg Route: IVP; Site: left antecubital; as6 02:20 Follow up: Response: No adverse reaction sm5 01:38 Drug: SOLU-Medrol (methylPrednisoLONE) 125 mg Route: IVP; Site: left antecubital; as6 02:20 Follow up: Response: No adverse reaction sm5 Disposition Summary: 08/23/21 01:46 Hospitalization Ordered Hospitalization Status: Inpatient Admission ashutosh Provider: Santa Horne cha Location: Telemetry/MedSurg (Inpatient) ashutosh Condition: Fair ashutosh Problem: new ashutosh Symptoms: have improved ashutosh Bed/Room Type: Standard ashutosh Room Assignment: 215(08/23/21 02:36) mw Diagnosis - COPD/ Chronic obstructive pulmonary disease with (acute) exacerbation ashutosh - Hypoxemia ashutosh - Acute and chronic respiratory failure with hypoxia ashutosh - Chronic respiratory failure with hypercapnia ashutosh - Dyspnea ashutosh - Anemia, unspecified ashutosh - Laceration without foreign body, left lower leg ashutosh Forms: - Medication Reconciliation Form ashutosh - SBAR form ashutosh Signatures: Dispatcher [employer] EDMS Elsy Rizvi RN RN Jose Roberto Santos MD MD cha Pena, Laura, RN RN lp1 Florencio Llanes RN RN as6 Brittney Morse RN RN sm5 Natasha Bingham PA PA sb3 Corrections: (The following items were deleted from the chart) 01:44 01:41 Home Meds: Albuterol Inhl; lp1 lp1 02:36 01:46 ashutosh santillan
--- NOTE | 2021-08-23 01:47 | ER ---
Nurse's Notes [facility] Name: Tika Lynne Age: 70 yrs Sex: Female : 1950 Arrival Date: 08/23/2021 Time: 01:05 Bed 4 Private MD: Diagnosis: COPD/ Chronic obstructive pulmonary disease with (acute) exacerbation;Hypoxemia;Acute and chronic respiratory failure with hypoxia;Chronic respiratory failure with hypercapnia;Dyspnea;Anemia, unspecified;Laceration without foreign body, left lower leg Presentation: 08/23 01:19 Acuity: KEVIN 2 [facility] 01:20 Chief complaint: Family reports increased difficulty breathing, discharged from [facility] hospital on 08/20/21; Hx of COPD, on home O2 at 3L. 01:20 Coronavirus screen: shortness of breath. Ebola Screen: No symptoms or risks identified [facility] at this time. Initial Sepsis Screen: Does the patient meet any 2 criteria? RR > 20 per min. HR > 90 bpm. Does the patient have a suspected source of infection? Yes: Productive cough/pneumonia. Risk Assessment: Do you want to hurt yourself or someone else? Patient reports no desire to harm self or others. Onset of symptoms was August 23, 2021. 01:20 Method Of Arrival: Wheelchair [facility] Triage Assessment: 02:46 General: Appears ill. Respiratory: Reports shortness of breath Onset: The sm5 symptoms/episode began/occurred today, the patient has moderate shortness of breath. Historical: - Allergies: 01:29 BACITRACIN; lp1 01:29 Levofloxacin; lp1 01:29 Neomycin Sulfate; lp1 01:29 PENICILLINS; 1 - Home Meds: 01:36 diltiazem HCl 30 mg Oral tab 3 times per day [Active]; acetazolamide 125 mg Oral tab 2 lp1 times per day [Active]; Eliquis 5 mg oral tab 1 tab 2 times per day [Active]; clonazepam 1 mg Oral tab nightly [Active]; digoxin 125 mcg (0.125 mg) Oral tab 1 tab once daily [Active]; prednisone 20 mg Oral tab once daily [Active]; benzonatate 100 mg oral cap 1 cap 3 times per day [Active]; 01:41 Trelegy Ellipta inhalation [Active]; carvedilol 6.25 mg Oral tab every 12 hours lp1 [Active]; atorvastatin 40 mg oral tab 1 tab once daily [Active]; arformoterol inhalation [Active]; Atrovent Nebulizer [Active]; Xopenex Nebulizer [Active]; - PMHx: 01:29 Chronic obstructive lung disease; Congestive heart failure; Hypertensive disorder; lp1 - Immunization history:: Adult Immunizations up to date. - Family history:: not pertinent. - Social history:: Smoking status: unknown. Screenin:46 Abuse screen: Denies threats or abuse. Denies injuries from another. Nutritional sm5 screening: No deficits noted. Tuberculosis screening: No symptoms or risk factors identified. Fall Risk IV access (20 points). Gait- Weak (10 pts.). Total Figueroa Fall Scale indicates Low Risk Score (25-44 pts). Fall prevention measures have been instituted. Side Rails Up X 2 Frequent Obs/Assesments occuring Family Present and informed to notify staff if they need to leave bedside As available Patient and Family Educated on Fall Prevention Program and strategies. Assessment: 01:15 General: Appears ill, Behavior is calm. Pain: Denies pain. Neuro: Level of sm5 Consciousness is awake, Oriented to person, place, time, situation. Cardiovascular: Capillary refill < 3 seconds Rhythm is regular. Respiratory: Airway is patent Trachea midline Respiratory effort is even, labored, Breath sounds with wheezes bilaterally. Derm: Skin is fragile, is thin. Vital Signs: 01:20 BP 150 / 91; Pulse 101; Resp 32; Pulse Ox 97% on 3 lpm NC; lp1 02:43 BP 131 / 81; Pulse 85; Resp 19; Pulse Ox 100% on BiPAP; sm5 03:30 BP 123 / 69; Pulse 90; Resp 22 S; Pulse Ox 97% on BiPAP; as6 ED Course: 01:05 Patient arrived in ED. ja2 01:09 Jose Roberto Alanis MD is Attending Physician. ashutosh 01:12 Florencio Llanes, JULIOCESAR is Primary Nurse. as6 01:19 Triage completed. lp1 01:19 Arm band placed on. lp1 01:29 Patient has correct armband on for positive identification. Bed in low position. Client lp1 placed on continuous cardiac and pulse oximetry monitoring. NIBP monitoring applied. 01:40 X-ray completed. Portable x-ray completed in exam room. 1 01:44 Santa Horne MD is Hospitalizing Provider. ashutosh 01:46 Inserted saline lock: 18 gauge in left antecubital area, using aseptic technique. Blood sm5 collected. 02:12 Notified ED physician of a critical lab result(s). troponin of 73.7 Dr Zeke willams notified. 02:43 Type And Screen Sent. sm5 02:45 No provider procedures requiring assistance completed. sm5 03:43 Patient admitted, IV remains in place. sm5 Administered Medications: 01:37 Drug: Xopenex (levalbuterol) 3.75 mg Route: Inhalation; as6 04:28 Follow up: Response: No adverse reaction as6 01:37 Drug: AtroVENT (ipratropium) Aerosol 0.5 mg Route: Inhalation; as6 04:28 Follow up: Response: No adverse reaction as6 01:37 Drug: Meropenem 1 grams Route: IV; Rate: per protocol; Site: left antecubital; as6 02:20 Follow up: IV Status: Completed infusion; IV Intake: 100ml sm5 01:38 Drug: NS 0.9% 1000 ml Route: IV; Rate: 125 ml/hr; Site: left antecubital; as6 04:28 Follow up: IV Status: Infusion continued upon admission as6 01:38 Drug: Pepcid (famotidine) 20 mg Route: IVP; Site: left antecubital; as6 02:20 Follow up: Response: No adverse reaction sm5 01:38 Drug: SOLU-Medrol (methylPrednisoLONE) 125 mg Route: IVP; Site: left antecubital; as6 02:20 Follow up: Response: No adverse reaction sm5 Medication: 02:45 VIS not applicable for this client. sm5 Intake: 02:20 IV: 100ml; Total: 100ml. sm5 Outcome: 01:46 Decision to Hospitalize by Provider. ashutosh 04:27 Admitted to Med/surg accompanied by nurse, family with patient, via stretcher, room as6 215, with oxygen, with chart. 04:27 Condition: stable 04:27 Instructed on the need for admit. 04:29 Patient left the ED. as6 Signatures: Dispatcher [employer] EDMS Jose Roberto Alanis MD MD cha Ballard, Brenda, RN RN bb Brigette Smith RN RN lp1 Sheree Monk md1 Jossie Goodwin Ashby, JULIOCESAR RN as6 Brittney Morse, RN RN sm5 Corrections: (The following items were deleted from the chart) 01:44 01:41 Home Meds: Albuterol Inhl; lp1 lp1 01:56 01:54 In radiology for Chest Single View+[id number]. EDMS sheila 02:13 02:12 Notified ED physician of [facility] 02:45 01:15 Respiratory: Airway is patent Trachea midline Respiratory effort is even, sm5 labored, Breath sounds are clear bilaterally. sm5
[2021-08-23 01:49] LABS: Absolute Lymphocytes (CBC) 0.3 K/uL (0.7-4.9); Hematocrit 23.2 % (36.0-45.0); Lymphocytes % 3.1 % (15.3-44.8); MCV 93.7 fL (80-100); MPV 8.1 fL (7.6-11.3); RBC Red Blood Cell Count 2.48 M/uL (3.86-4.86)
[2021-08-23 01:50] LABS: Protime INR 1.3
[2021-08-23 02:03] LABS: ALT/SGPT 49 U/L (12-78); AST/SGOT 29 U/L (15-37); Albumin 2.2 g/dL (3.4-5.0); Alkaline Phosphatase 78 U/L (45-117); BUN Blood Urea Nitrogen 22 mg/dL (7-18); Bicarbonate 35 mmol/L (21-32); Bilirubin Total 0.3 mg/dL (0.2-1.0); Glomerular Filtration Rate 102 ml/min (=/>90); Glucose Level 86 mg/dL (74-106); Magnesium 2.4 mg/dL (1.8-2.4); NT PRO-BNP 1838 pg/mL (<125); Potassium 3.8 mmol/L (3.5-5.1); Sodium Level 148 mmol/L (136-145)
[2021-08-23 02:04] LABS: Bilirubin Direct < 0.1 mg/dL (0-0.2)
[2021-08-23 02:13] LABS: Troponin High Sensitivity 73.7 pg/mL (<58.9)
[2021-08-23 02:16] LABS: Blood Morphology Comment NOTED (NOT SEEN); Platelet Estimate ADEQ
[2021-08-23 02:17] LABS: Burr Cells 1+
--- NOTE | 2021-08-23 03:00 | P.HP ---
Certification for Inpatient Patient admitted to: Inpatient With expected LOS: >2 Midnights Patient will require the following post-hospital care: None Practitioner: I am a practitioner with admitting privileges, knowledge of patient current condition, hospital course, and medical plan of care. Services: Services provided to patient in accordance with Admission requirements found in Title 42 Section 412.3 of the Code of Federal Regulations Patient History Date of Service: 08/23/21 Reason for admission: Respiratory Failure History of Present Illness: Patient is a 70 y/o F with COPD, afib, HTN, diastolic CHF who presented to the ED with family with worsening SHOB/hypoxia. Patient was admitted here 2.5 weeks ago and treated for hypoxia, sepsis, PNA, respiratory failure and discharged 3 days ago with home O2 and home health. She was also supposed to get bipap, but has not received it yet. Per family, patient was doing great after discharge but starting deteriorating yesterday. She was short of breath, wheezing, coughing, O2 saturation low. Labs today significant for WBC 10, hgb 7.8, 3 bands, Na 148, trop HS 73.7, BNP 1800. ABG with pH 7.26, pCO2 75, pO2 357, HCO3 32.5. CXR shows mild right basilar atelectasis. She was put on bipap. Patient denies any pain, just reports SHOB. COVID/flu negative. She was given breathing treatments, solumedrol, meropenem in ED. Patient is admitted for further evaluation and treatment. Allergies bacitracin [From Neosporin ([id number])] Allergy (Verified 01/29/18 15:33) Rash levofloxacin [From Levaquin] Allergy (Verified 01/29/18 15:33) Itching neomycin [From Neosporin ([id number])] Allergy (Verified 01/29/18 15:33) Rash polymyxin B [From Neosporin ([id number])] Allergy (Verified 01/29/18 15:33) Rash Home medications list reviewed: Yes Home Medications: Atorvastatin Calcium [Lipitor] 40 mg PO BEDTIME 01/29/18 Fluticasone/Umeclidin/Vilanter [Trelegy Ellipta 100-62.5-25] 1 each IH AC 01/29/18 carvediloL [Coreg*] 6.25 mg PO BID 01/29/18 predniSONE [Prednisone*] 20 mg PO DAILY 08/05/21 Apixaban [Eliquis] 5 mg PO BID #60 tablet 08/20/21 Arformoterol Tartrate [Brovana] 15 mcg NEB BIDRESP #60 vial.neb 08/20/21 Benzonatate [Tessalon Perle*] 100 mg PO TID PRN #60 cap 08/20/21 Digoxin [Lanoxin*] 0.125 mg PO DAILY #30 tab 08/20/21 Diltiazem Tab [Cardizem Tab*] 30 mg PO TID #45 tab 08/20/21 Ensure Enlive 237 ml PO BID #60 can 08/20/21 Ipratropium Neb [Atrovent*] 0.5 mg NEB [id number] #60 amp 08/20/21 Levalbuterol [Xopenex*] 1.25 mg NEB [id number] PRN #60 vial 08/20/21 acetaZOLAMIDE [Diamox*] 125 mg PO BID #30 tab 08/20/21 clonazePAM [Klonopin*] 1 mg PO BEDTIME PRN #30 tab 08/20/21 predniSONE [Prednisone*] 20 mg PO DAILY #30 tab 08/20/21 - Past Medical/Surgical History Diabetic: Yes -: COPD -: HTN -: AFib -: Right hip fracture Psychosocial/ Personal History: Patient is . - Family History Family History: Reviewed- Non-Contributory - Social History Smoking Status: Former smoker Alcohol use: No CD- Drugs: No Caffeine use: No Place of Residence: Home Review of Systems Respiratory: Cough, Shortness of Breath, Wheezing Physical Examination - Physical Exam General: Alert, In no apparent distress, Mild distress HEENT: Atraumatic, PERRLA, EOMI, Sclerae nonicteric Neck: Supple, 2+ carotid pulse no bruit, No LAD, Without JVD or thyroid abnormality Respiratory: Crackles/rales, Expiratory wheezes Cardiovascular: No edema, Regular rate/rhythm Gastrointestinal: Normal bowel sounds, No tenderness Musculoskeletal: No tenderness Integumentary: No rashes, Other (laceration L calf, repaired in ED) Neurological: Normal speech, Normal strength at 5/5 x4 extr, Normal tone, Normal affect - Studies Laboratory Data (last 24 hrs) 08/23/21 01:20: PT 14.4 H, INR 1.30 08/23/21 01:20: WBC 10.0 D, Hgb 7.8 L, Hct 23.2 L, Plt Count 288 08/23/21 01:20: Sodium 148 H, Potassium 3.8, BUN 22 H, Creatinine 0.50 L, Glucose 86, Magnesium 2.4, Total Bilirubin 0.3, AST 29, ALT 49, Alkaline Phosphatase 78 Microbiology Data (last 24 hrs): 08/23/21 01:37 Nasopharnyx Influenza Type A Antigen Screen - Final 08/23/21 01:37 Nasopharnyx Influenza Type B Antigen Screen - Final Assessment and Plan - Problems (Diagnosis) (1) Atrial fibrillation Current Visit: Yes Status: Acute Qualifiers: Atrial fibrillation type: unspecified Qualified Code(s): I48.91 - Unspecified atrial fibrillation (2) Acute and chronic respiratory failure with hypoxia Current Visit: Yes Status: Acute (3) Hypertension Current Visit: Yes Status: Chronic Qualifiers: Hypertension type: primary hypertension Qualified Code(s): I10 - Essential (primary) hypertension (4) COPD (chronic obstructive pulmonary disease) Current Visit: Yes Status: Chronic Qualifiers: Emphysema type: unspecified (5) Anemia Current Visit: Yes Status: Acute Qualifiers: Anemia type: unspecified type Qualified Code(s): D64.9 - Anemia, unspecified (6) CHF (congestive heart failure) Current Visit: Yes Status: Acute Qualifiers: Heart failure type: diastolic Heart failure chronicity: chronic Qualified Code(s): I50.32 - Chronic diastolic (congestive) heart failure - Plan Elevated Troponin: Initial troponin HS 72.3. Patient denies chest pain. Per chart review, troponin was similarly elevated on last admission and trended flat. Will repeat in 6 hours and check CPK and CKMB. EKG with non specific ST changes. Acute on chronic respiratory failure/COPD: Continue bipap, solumedrol, breathing treatments. Pulmonology consulted. Atrial fibrillation/Hypertension/CHF: Stable at this time. Continue home medications. Recent echo showed early diastolic CHF. Prolonged antibiotic use: Blood cultures obtained on 08/05 grew multidrug- resistant Pseudomonas aeruginosa (urine also grew resistant Pseudomonas, likely source) and was treated with Vabomere for 2 weeks. Today was supposed to be her last day of abx. New blood cultures drawn in ED. ID followed last time. May need consultation. Urine pending. PICC line in place. Anemia: Hgb trending down. Will continue to monitor and transfuse if hgb < 7. Iron studies ordered. L Calf Laceration: Repaired in ED. Wound care consulted. Patient was treated for cellulitus on LLE during previous admission. Lovenox for VTE ppx Full code On previous admission, Dr. Horne spoke with family about her poor prognosis and if she is not improving then they may consider hospice care. Discharge Plan: Home Plan to discharge in: Greater than 2 days - Advance Directives Does patient have a Living Will: Yes Does patient have a Durable POA for Healthcare: No - Code Status/Comfort Care Code Status Assessed: Yes (Full) Critical Care: No Time Spent Managing Pts Care (In Minutes): 70
[2021-08-23] MEDS ORDERED: LIDOCAINE 1% W/EPI 1:100,000 MDV 20 ML VIAL ONE (03:09)
[2021-08-23] MEDS ORDERED: ACETAMINOPHEN 500 MG TAB PO PRN (03:39)
[2021-08-23] MEDS ORDERED: ONDANSETRON 4 MG/2 ML VIAL IV PRN (03:39)
[2021-08-23 05:00] VITALS: BMI 24.9
[2021-08-23] MEDS ORDERED: METHYLPREDNISOLONE 125 MG INJ IV SCH (06:00)
[2021-08-23 08:11] LABS: CKMB Creatine Kinase MB 2.7 ng/mL (1.0-3.6)
[2021-08-23] MEDS: ALBUTEROL 2.5 MG/3 ML NEB SOL NEB SCH ×3 (08:30→20:17)
[2021-08-23] MEDS: IPRATROPIUM BROM 0.5MG/2.5ML NEB SCH ×3 (08:30→20:17)
[2021-08-23] MEDS: METHYLPREDNISOLONE 40 MG INJ IV SCH ×2 (08:57→16:31)
[2021-08-23] MEDS ORDERED: ENOXAPARIN 40 MG/0.4 ML SQ SCH (09:00)
[2021-08-23] MEDS: carvediloL 6.25 MG TAB PO SCH ×2 (09:00→21:57)
[2021-08-23] MEDS: APIXABAN 5 MG TABLET PO SCH ×2 (09:00→21:56)
[2021-08-23] MEDS: DILTIAZEM HCL 60 MG TAB PO SCH ×3 (09:00→22:06)
[2021-08-23] MEDS: D5W 1,000 ML IV SCH ×2 (09:00→21:21)
[2021-08-23] MEDS: acetaZOLAMIDE 250 MG TAB PO SCH ×2 (09:00→21:56)
[2021-08-23] MEDS: DIGOXIN 0.125 MG TABLET PO SCH (09:00)
--- NOTE | 2021-08-23 09:56 | P.CNS ---
Date of Consult: 08/23/21 Reason for Consult: Respiratory failure Chief Complaint: Respiratory Failure History of Present Illness: Patient is 70 years of age debilitated from a COPD recently admitted with resistant Pseudomonas infection was treated with 2 weeks of antibiotic she went home and became worse fairly rapidly unresponsive son had purchased home BiPAP or CPAP arm not sure she tried that to use it yesterday and it appeared with respiratory failure is currently on BiPAP unresponsive Allergies bacitracin [From Neosporin ([id number])] Allergy (Verified 01/29/18 15:33) Rash levofloxacin [From Levaquin] Allergy (Verified 01/29/18 15:33) Itching neomycin [From Neosporin ([id number])] Allergy (Verified 01/29/18 15:33) Rash polymyxin B [From Neosporin ([id number])] Allergy (Verified 01/29/18 15:33) Rash Home Medications: Atorvastatin Calcium [Lipitor] 40 mg PO BEDTIME 01/29/18 Fluticasone/Umeclidin/Vilanter [Trelegy Ellipta 100-62.5-25] 1 each IH AC 01/29/18 carvediloL [Coreg*] 6.25 mg PO BID 01/29/18 predniSONE [Prednisone*] 20 mg PO DAILY 08/05/21 Apixaban [Eliquis] 5 mg PO BID #60 tablet 08/20/21 Arformoterol Tartrate [Brovana] 15 mcg NEB BIDRESP #60 vial.neb 08/20/21 Benzonatate [Tessalon Perle*] 100 mg PO TID PRN #60 cap 08/20/21 Digoxin [Lanoxin*] 0.125 mg PO DAILY #30 tab 08/20/21 Diltiazem Tab [Cardizem Tab*] 30 mg PO TID #45 tab 08/20/21 Ensure Enlive 237 ml PO BID #60 can 08/20/21 Ipratropium Neb [Atrovent*] 0.5 mg NEB [id number] #60 amp 08/20/21 Levalbuterol [Xopenex*] 1.25 mg NEB [id number] PRN #60 vial 08/20/21 acetaZOLAMIDE [Diamox*] 125 mg PO BID #30 tab 08/20/21 clonazePAM [Klonopin*] 1 mg PO BEDTIME PRN #30 tab 08/20/21 predniSONE [Prednisone*] 20 mg PO DAILY #30 tab 08/20/21 - Past Medical/Surgical History Diabetic: Yes -: COPD -: HTN -: AFib -: Resistant Pseudomonas bacteremia -: Right hip fracture Psychosocial/ Personal History: Patient is . - Social History Smoking Status: Unknown if ever smoked Alcohol use: No CD- Drugs: No Caffeine use: No Place of Residence: Home Review of Systems is unable to be obtained Physical Examination Temp Pulse Resp BP Pulse Ox 97.9 F 86 16 120/64 93 08/23/21 08:00 08/23/21 08:00 08/23/21 08:00 08/23/21 08:00 08/23/21 08:00 General: Unresponsive Respiratory: Clear to auscultation bilaterally, Diminished Cardiovascular: No edema, Regular rate/rhythm, Normal S1 S2 Gastrointestinal: Normal bowel sounds Musculoskeletal: Other (For extremity ulcers and ecchymosis) Laboratory Data (last 24 hrs) 08/23/21 01:20: PT 14.4 H, INR 1.30 08/23/21 01:20: WBC 10.0 D, Hgb 7.8 L, Hct 23.2 L, Plt Count 288 08/23/21 01:20: Sodium 148 H, Potassium 3.8, BUN 22 H, Creatinine 0.50 L, Glucose 86, Magnesium 2.4, Total Bilirubin 0.3, AST 29, ALT 49, Alkaline Phosphatase 78 - Problems (1) Acute and chronic respiratory failure with hypoxia Current Visit: Yes Status: Acute Plan: Patient is 70 years of age with terminal COPD possible mets to the lung she has a left mid zone lung mass Meagher a renal mass admitted yet again altered mental status respiratory failure she had a history of Pseudomonas infection treated with 2 weeks of IV antibiotics and she is hypercapnic hyponatremic suggest volume depletion start on IV fluids await blood cultures mild normocytic anemia ordered iron studies chest x-ray reviewed no significant changes
--- NOTE | 2021-08-23 10:38 | P.PN ---
Date of Service: 08/23/21 I have personally seen and evaluated Ms. Tika Lynne. I reviewed the notes and assessments performed by Natasha Bingham PA-C. I independently performed my own history and physical examination. I agree with the assessment and plan as outlined in her note. I concur with her documentation of Ms. Lynne. Diagnoses: 1. Acute on Chronic Hypercapnic Respiratory Failure secondary to Acute COPD Exacerbation 2. Suspect Mild Acute on Chronic Diastolic Congestive Heart Failure Exacerbation 3. SIRS Criteria (Tachypnea, Tachycardia) suspect secondary to COPD Exacerbation - no current source of infection 4. Hypernatremia secondary to Dehydration 5. Chronic Atrial Fibrillation 6. Hypertension 7. Anemia, stable since discharge 8. Mildly Elevated Troponin, suspect Demand Ischemia due to AHRF - improving 9. Recent admission for Multi-Drug Resistant Pseudomonas Aeruginosa UTI and Bacteremia 10. Significant Deconditioning Kalin Burch MD
[2021-08-23 11:25] LABS: Ferritin 275.6 ng/mL (8-388)
[2021-08-23] MEDS ORDERED: PNEUMOCOCCAL VACCINE 0.5 ML IMVAC ONE (12:00)
[2021-08-23 13:18] LABS: Urine Appearance Clear (Clear); Urine Bilirubin Negative (Negative); Urine Blood 1+ (Negative); Urine Color Yellow (Yellow); Urine Glucose Negative (Negative); Urine Protein 2+ (Negative); Urine Urobilinogen 0.2 mg/dL (0.2-1.0); Urine pH 6.5 (5.0-7.0)
[2021-08-23 13:26] LABS: Urine Bacteria <20 /HPF (<20)
[2021-08-23 13:43] LABS: Arterial Blood Carboxyhemoglob 1.5 % (0-1.5); Blood Gas Oxyhemoglobin 87.3 % (94-97); Blood O2 Saturation 89.7 % (92-98.5)
--- NOTE | 2021-08-23 16:00 | RAD REPORT ---
EXAM DESCRIPTION: RAD - Chest Single View - 08/23/2021 1:51 am CLINICAL HISTORY: 70 years Female, COPD COMPARISON: Chest x-ray August 20, 2021 FINDINGS: Right upper extremity PICC line present with tip in the lower SVC. Mild streaky opacity in both lung bases is suggestive of atelectasis. No consolidation. No pneumothor ax. No significant pleural effusion. Heart size normal. Aortic atherosclerosis is present. Degenerative changes of the spine noted. There is sclerotic material within a few mid thoracic verteb khoa suggestive of prior kyphoplasty. IMPRESSION: No definite acute findings. Mild right basilar atelectasis. Electronically signed by: Karsten Martines MD 08/23/2021 3:10 AM CDT Due to temporary technical issues with the PACS/Fluency reporting system, reports are being signed by the in house radiologists without review as a courtesy to insure prompt reporting. The interpreting radiologist is fully responsible for the content of the report.
[2021-08-23] MEDS ORDERED: ATORVASTATIN 40 MG TAB PO SCH (21:00)
[2021-08-23] MEDS ORDERED: clonazePAM 1 MG TAB PO PRN (21:28)
[2021-08-23] MEDS ORDERED: BENZONATATE 100 MG CAP PO PRN (21:28)
[2021-08-24] MEDS: METHYLPREDNISOLONE 40 MG INJ IV SCH ×2 (01:45→10:58)
[2021-08-24] MEDS: ALBUTEROL 2.5 MG/3 ML NEB SOL NEB SCH ×3 (02:18→14:13)
[2021-08-24] MEDS: IPRATROPIUM BROM 0.5MG/2.5ML NEB SCH ×3 (02:18→14:13)
[2021-08-24 03:51] LABS: Absolute Lymphocytes (CBC) 0.3 K/uL (0.7-4.9); Lymphocytes % 2.2 % (15.3-44.8); MCV 90.9 fL (80-100); MPV 8.1 fL (7.6-11.3); RBC Red Blood Cell Count 1.98 M/uL (3.86-4.86)
[2021-08-24 03:54] LABS: Hematocrit 17.9 % (36.0-45.0)
[2021-08-24] MEDS ORDERED: NA CHLORIDE 0.9% 250 ML IV SCH (04:00)
[2021-08-24 04:15] LABS: Magnesium 2.2 mg/dL (1.8-2.4); Potassium 3.3 mmol/L (3.5-5.1)
[2021-08-24] MEDS ORDERED: FUROSEMIDE 20 MG/ 2ML VIAL IV ONE (04:34)
[2021-08-24] MEDS ORDERED: SODIUM CHLORIDE 0.9% 10ML INJ IV PRN (04:40)
[2021-08-24] MEDS ORDERED: PANTOPRAZOLE 40 MG INJ IVP ONE (04:40)
--- NOTE | 2021-08-24 04:41 | P.PN ---
Date of Service: 08/24/21 Critical lab alert at 0400- hgb 6 / hct 17.9. Both have slowly been trending down. I spoke with patient and son. Son states that he noticed her stool has been very dark. No hematemesis. I ordered 2 units of PRBC and occult blood. We do not have GI available until 09/01. Eliquis discontinued. Will start on protonix drip. Family understands that patient's prognosis is poor and is considering hospice.
[2021-08-24] MEDS: PANTOPRAZOLE INJ 80 MG in NA CHLORIDE 0.9% 250 ML IV SCH ×2 (05:59→11:47)
[2021-08-24] MEDS ORDERED: HOME MED 1 EA UNK (Fluticasone/Umeclidin/Vilanter [Trelegy Ellipta 100-62.5-25] Blst.W.Dev IH SCH (07:30)
--- NOTE | 2021-08-24 07:59 | EKG ---
Test Date: 2021-08-23 Test Time: 01:12:44 [employer] Director: JAMES MEASUREMENT RESULTS: Intervals: Rate: 102 VA: 124 QRSD: 78 QT: 352 QTc: 458 [place]: P: 32 VA: 124 QRS: 28 T: -30 INTERPRETIVE STATEMENTS: Sinus tachycardia with premature atrial complexes ST & T wave abnormality, consider inferior ischemia ST & T wave abnormality, consider anterolateral ischemia Abnormal ECG Compared to ECG 08/05/2021 10:20:24 No significant changes Electronically Signed On 08-24-21 07:55:37 CDT by Sammy Valadez
[2021-08-24] MEDS ORDERED: ARFORMOTEROL TARTRATE 15 MCG/2 ML VIAL.NEB NEB SCH (08:00)
[2021-08-24] MEDS ORDERED: NA CHLORIDE 0.9% 250 ML ONE (08:01)
[2021-08-24] MEDS ORDERED: ENSURE ENLIVE 237 ML CAN PO SCH (09:00)
[2021-08-24] MEDS ORDERED: POTASSIUM CL SA 10 MEQ TAB PO ONE (09:00)
[2021-08-24] MEDS ORDERED: Fluticasone/Umeclidin/Vilanter [Trelegy Ellipta 100-62.5-25] IH SCH (09:00)
[2021-08-24] MEDS: DIGOXIN 0.125 MG TABLET PO SCH (10:53)
[2021-08-24] MEDS: carvediloL 6.25 MG TAB PO SCH (10:53)
[2021-08-24] MEDS: acetaZOLAMIDE 250 MG TAB PO SCH (10:54)
[2021-08-24] MEDS: DILTIAZEM HCL 60 MG TAB PO SCH ×2 (10:55→13:41)
[2021-08-24] MEDS: D5W 1,000 ML IV SCH (11:40)
--- NOTE | 2021-08-24 11:56 | P.DS ---
Admission Date: 08/23/21 Discharge Date: 08/24/21 Disposition: TRANSFER TO [facility] Discharge Condition: FAIR Reason for Admission: Respiratory Failure Consultations: 1. Pulmonary Medicine Brief History of Present Illness: Diagnoses: 1. Acute on Chronic Hypercapnic Respiratory Failure secondary to Acute COPD Exacerbation 2. Acute Blood Loss Anemia suspect secondary to Acute Upper Gastrointestinal Bleeding 3. Acute Toxic Metabolic Encephalopathy secondary to Hypercapnia 4. Suspect Mild Acute on Chronic Diastolic Congestive Heart Failure Exacerbation 5. SIRS Criteria (Tachypnea, Tachycardia) suspect secondary to COPD Exacerbation - no current source of infection 6. Hypernatremia secondary to Dehydration 7. Chronic Atrial Fibrillation 8. Hypertension 9. Mildly Elevated Troponin, suspect Demand Ischemia due to AHRF - improving 10. Recent admission for Multi-Drug Resistant Pseudomonas Aeruginosa UTI and Bacteremia 11. Significant Deconditioning Hospital Course: Ms. Tika Lynne is a 70 year old female with a past medical history significant for chronic obstructive pulmonary disease, atrial fibrillation on apixaban, hypertension, and diastolic congestive heart failure who was admitted to the [facility] on 08/23/2021 for acute hypercapnic respiratory failure. She was recently admitted to our hospital and treated for sepsis, Pseudomonas Aeruginosa bacteremia, acute hypoxic respiratory failure, and pneumonia. She was discharged on 08/20/2021, but became more altered over the weekend. It is thought that her worsening mentation was secondary to progressive hypercapnia due to no BiPAP availability at home. Due to worsening symptoms she was brought into the emergency department for further evaluation. Upon evaluation, her ABG was notable for a pH 7.26, pCO2 75. She was placed on BiPAP with gradual improvement in her mentation and respiratory status. With BiPAP, her pH improved to 7.39 and her PCO2 improved to 51.7. Her mentation has returned to baseline and she was clinically improving. However, yesterday evening she had a melenic bowel movement per nursing staff. Her morning hemoglobin returned at 6.0 and she was given 2 units of PRBCs. Apixaban was held. Upon review of her chart, her hemoglobin was as high as 13.7 on 08/05/2021. There is no Gastroenterology available here until 09/01/2021, so I have initiated a transfer and she was accepted to [facility]. Doc-to-doc was completed with Dr. Rajan Mendoza, who generously accepted her for transfer. Please note CT imaging from last admission revealed: "Solid 16 mm right lower lobe pulmonary nodule. The patient has evidence of emphysema and so is presumably high risk for lung cancer. Neoplasm is not excluded. Consider PET/CT and/or biopsy when the patient's clinical condition improves." This was discussed with her by Dr. Last and myself, and will need to be followed up as an outpatient. Kalin Burch MD Vital Signs/Physical Exam: Temp Pulse Resp BP Pulse Ox 97.2 F 93 H 18 130/60 98 08/24/21 08:00 08/24/21 10:55 08/24/21 08:00 08/24/21 10:55 08/24/21 08:00 General: Alert, In no apparent distress HEENT: Atraumatic Neck: Without JVD or thyroid abnormality Respiratory: Clear to auscultation bilaterally, Normal air movement Cardiovascular: No edema, Regular rate/rhythm, Normal S1 S2, No gallops, No rubs, No murmurs Gastrointestinal: Normal bowel sounds, Soft and benign, Non-distended, No tenderness, No rebound, No guarding Musculoskeletal: No clubbing, No swelling Integumentary: No rashes Neurological: Dementia Laboratory Data at Discharge: WBC 13.2 K/uL (4.3-10.9) H D 08/24/21 03:20 Hgb Cancelled 08/24/21 04:01 Hct Cancelled 08/24/21 04:01 Plt Count 236 K/uL (152-406) 08/24/21 03:20 PT 14.4 SECONDS (9.5-12.5) H 08/23/21 01:20 INR 1.30 08/23/21 01:20 Sodium 141 mmol/L (136-145) 08/24/21 03:20 Potassium 3.3 mmol/L (3.5-5.1) L 08/24/21 03:20 BUN 21 mg/dL (7-18) H 08/24/21 03:20 Creatinine 0.44 mg/dL (0.55-1.3) L 08/24/21 03:20 Glucose 183 mg/dL (74-106) H 08/24/21 03:20 Magnesium 2.2 mg/dL (1.8-2.4) 08/24/21 03:20 Total Bilirubin 0.3 mg/dL (0.2-1.0) 08/23/21 01:20 AST 29 U/L (15-37) 08/23/21 01:20 ALT 49 U/L (12-78) 08/23/21 01:20 Alkaline Phosphatase 78 U/L (45-117) 08/23/21 01:20 Home Medications: Atorvastatin Calcium [Lipitor] 40 mg PO BEDTIME 01/29/18 Fluticasone/Umeclidin/Vilanter [Trelegy Ellipta 100-62.5-25] 1 each IH DAILY 01/29/18 carvediloL [Coreg*] 6.25 mg PO BID 01/29/18 Apixaban [Eliquis] 5 mg PO BID #60 tablet 08/20/21 Arformoterol Tartrate [Brovana] 15 mcg NEB BIDRESP #60 vial.neb 08/20/21 Benzonatate [Tessalon Perle*] 100 mg PO TID PRN #60 cap 08/20/21 Digoxin [Lanoxin*] 0.125 mg PO DAILY #30 tab 08/20/21 Diltiazem Tab [Cardizem Tab*] 30 mg PO TID #45 tab 08/20/21 Ensure Enlive 237 ml PO BID #60 can 08/20/21 Ipratropium Neb [Atrovent*] 0.5 mg NEB [id number] #60 amp 08/20/21 Levalbuterol [Xopenex*] 1.25 mg NEB [id number] PRN #60 vial 08/20/21 acetaZOLAMIDE [Diamox*] 125 mg PO BID #30 tab 08/20/21 clonazePAM [Klonopin*] 1 mg PO BEDTIME PRN #30 tab 08/20/21 predniSONE [Prednisone*] 20 mg PO DAILY #30 tab 08/20/21 Diet: NPO Activity: Fall precautions Followup: Santa Horen MD [Primary Care Provider] - Time spent managing pt's care (in minutes): 45
[2021-08-24 12:55] VITALS: BP 152/71; TEMP 97.4
[2021-08-24 14:51] VITALS: O2SAT 93
== END 2021-08-24 15:45 | disposition short-term general hospital (02) | DRG 189 ==
LOC: ER 01:02 → ERHOLD 02:37 → 2ND 02:44
PROVIDERS: ADMIT Hospitalist; ATTEND Internal Medicine
PROC: 5A09357 Assistance with Respiratory Ventilation, Less than 24 Consecutive Hours, Continuous Positive Airway Pressure (ICD-10-PCS; 2021-08-23)
PROC: 0HQLXZZ Repair Left Lower Leg Skin, External Approach (ICD-10-PCS; 2021-08-23)
PROC: 30233N1 Transfusion of Nonautologous Red Blood Cells into Peripheral Vein, Percutaneous Approach (ICD-10-PCS; principal; 2021-08-24)
PROC: 5A09357 Assistance with Respiratory Ventilation, Less than 24 Consecutive Hours, Continuous Positive Airway Pressure (ICD-10-PCS; 2021-08-24)
DX: J96.22 Acute and chronic respiratory failure with hypercapnia (principal); I50.33 Acute on chronic diastolic (congestive) heart failure; G92.8 Other toxic encephalopathy; J44.1 Chronic obstructive pulmonary disease with (acute) exacerbation; D62 Acute posthemorrhagic anemia; K92.2 Gastrointestinal hemorrhage, unspecified; E87.0 Hyperosmolality and hypernatremia; I48.20 Chronic atrial fibrillation, unspecified; I24.8 Other forms of acute ischemic heart disease; I11.0 Hypertensive heart disease with heart failure; E86.0 Dehydration; R06.82 Tachypnea, not elsewhere classified; R00.0 Tachycardia, unspecified; R77.8 Other specified abnormalities of plasma proteins; S81.812A Laceration without foreign body, left lower leg, initial encounter; E11.9 Type 2 diabetes mellitus without complications; R91.1 Solitary pulmonary nodule; Z20.822 Contact with and (suspected) exposure to COVID-19; Z79.01 Long term (current) use of anticoagulants; Z79.2 Long term (current) use of antibiotics; Z79.52 Long term (current) use of systemic steroids; Z79.899 Other long term (current) drug therapy; Z88.3 Allergy status to other anti-infective agents; Z88.0 Allergy status to penicillin; Z87.891 Personal history of nicotine dependence
CPT/HCPCS: 36415; 71045; 80048; 80076; 81003; 81015; 82550; 82553; 82728; 82805; 83540; 83605; 83735; 83880; 84466; 84484; 85025; 85610; 86850; 86900; 86901; 87040; 87804; 93005; 94640; 94660; 94760; 96361; 96365; 96375; 99251; 99285; C9113; J1650; J1940; J2185; J2920; J2930; J3490; J7030; J7050; J7605; P9016; U0003